=== PATIENT | male | born 1995 | race Caucasian/White ===

== ENCOUNTER → 2019-02-28 06:28 | Outpatient (CLI) | payer OTHER, SELFPAY ==
--- NOTE | 2019-02-28 06:32 | MRI_ITS ---
STUDY: MRI BRAIN WITH AND WITHOUT CONTRAST (ATTENTION INTERNAL AUDITORY CANALS - I.A.C.'s) REASON FOR EXAM: Male, 23 years old. Dizziness and headache. Blurred vision TECHNIQUE: Standardized multiplanar fat and water weighted pulse sequences were obtained. 13 IV Dotarem was administered for the contrast portion of the examination. COMPARISON: None. FINDINGS: Normal bilateral temporal bones. Normal bilateral internal auditory canals. There is no demonstrated intracanalicular or cisternal vestibular schwannoma (acoustic neuroma). There is no enhancement of the bilateral VIIth or VIIIth cranial nerves. Normal bilateral cochlea, vestibules and semicircular canals. Normal size of the ventricles and extra-axial spaces for the patient's age. Normal white matter tracts of the supratentorial brain. Normal bilateral basal ganglia. Normal thalami. Normal flow voids within the major intracranial circulation suggesting patency by spin echo criteria. Normal venous enhancement. There is no enhancing intra-axial or extra-axial abnormality. There is no extra-axial fluid accumulation. Normal sella turcica, pituitary gland, infundibular stalk, optic chiasm and hypothalamus. Normal tectal plate and pineal gland. Normal midbrain, riccardo and medulla. Normal cerebellum. Normal basal cisterns. No demonstrated orbital abnormality, within the constraints of a routine brain study. There is marked, asymmetric left nasal mucosal thickening and narrowing of the left nasal cavity. Normal calvarium and skull base. Normal visualized soft tissue structures. Normal visualized upper cervical spine. MRI/Brain W/WO Contrast IMPRESSION: Normal unenhanced and enhanced MRI of the bilateral internal auditory canals (I.A.C's). There is marked, asymmetric left nasal mucosal thickening and narrowing of the left nasal cavity. Electronically Signed: Katelynn Gill, at 9:57 EDT Tel , Service support ,
== END ==
PROVIDERS: Family Provider Family Medicine; PCP Family Medicine; Referring Provider Otolaryngology; Visit Provider Otolaryngology
DX: R51 Headache (principal); R42 Dizziness and giddiness; H53.9 Unspecified visual disturbance
CPT/HCPCS: 70553; A9575

== ENCOUNTER → 2019-03-09 05:55 | Outpatient (CLI) | payer OTHER, SELFPAY ==
[2019-03-09 08:14] LABS: Vitamin B12 365 pg/mL (211-911)
[2019-03-12 12:48] LABS: Vitamin B1, Thiamine 160.1 nmol/L (66.5-200.0)
== END ==
PROVIDERS: Family Provider Family Medicine; PCP Family Medicine; Referring Provider Ophthalmology; Visit Provider Ophthalmology
DX: H49.11 Fourth [trochlear] nerve palsy, right eye (principal); H55.00 Unspecified nystagmus
CPT/HCPCS: 36415; 82607; 82746; 84425

== ENCOUNTER → 2019-04-16 | Outpatient (CLI) | payer OTHER, SELFPAY ==
[2019-04-16 17:38] LABS: Erythrocyte Sedimentation Rate 2 mm/hr (0-15)
[2019-04-16 17:48] LABS: Homocysteine 7.9 umol/L (3.2-10.7)
[2019-04-16 18:01] LABS: CRP < 2.90 mg/L (0.0-3.0)
[2019-04-18 13:12] LABS: ANTINUCLEAR ANTIBODIES DIRECT Negative (Negative)
== END | disposition home or self-care (01) ==
LOC: MTLAB 16:21
PROVIDERS: Family Provider Family Medicine; PCP Family Medicine; Referring Provider Registered Nurse; Visit Provider Registered Nurse
DX: R53.83 Other fatigue (principal); H53.9 Unspecified visual disturbance; R42 Dizziness and giddiness
CPT/HCPCS: 36415; 83090; 85652; 86038; 86140

== ENCOUNTER 2023-07-21 13:56 | Emergency (ER) | payer OTHER, SELFPAY ==
[2023-07-21 13:57] VITALS: BP 146/81; PULSE 96; RESP 15; TEMP 36; O2SAT 99; BMI 33.5
--- NOTE | 2023-07-21 14:07 | EKG12_ITS ---
Test Reason : CP Blood Pressure : / mmHG Vent. Rate : 094 BPM Atrial Rate : 094 BPM P-R Int : 138 ms QRS Dur : 074 ms QT Int : 312 ms P-R-T Axes : 029 015 032 degrees QTc Int : 390 ms Normal sinus rhythm Normal ECG Confirmed by DEBI WILKINS, KORIN ([id number]), editor producer SHERRY PAIGE ([id number]) on 07/22/2023 12:15:22 PM Referred By: BIJAN/KAEL/TL Confirmed By:KORIN CARRERA MD
--- NOTE | 2023-07-21 14:07 | RAD_ITS ---
STUDY: X-RAY CHEST REASON FOR EXAM: Male, 27 years old. Chest pain TECHNIQUE: Single AP portable view of the chest. COMPARISON: None. FINDINGS: EKG electrodes are seen. The lungs are clear and expanded. There is no demonstrated pleural abnormality. Normal size heart. Normal mediastinum and rahel. Normal visualized pulmonary arteries. Normal visualized aortic arch and descending thoracic aorta. Normal visualized thoracic spine. Normal visualized ribs, clavicles, and shoulders. There is no demonstrated abnormality of the visualized soft tissue structures of the upper abdomen. RAD/Chest 1 View (Portable) IMPRESSION: Normal x-ray examination of the chest. Electronically Signed: Pato Loyola MD at 15:10 EDT ,
--- NOTE | 2023-07-21 14:15 | NURSING ---
NO OLD EKGS
--- NOTE | 2023-07-21 14:22 | EDS_ITS ---
HPI History of Present Illness Chief Complaint: Chest Pain Detail of Chief Complaint: Right-sided chest pain Informant: patient and spouse/S.O. 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 The pain is worse with breathing. He denies history of PE or DVT. He has no risk factors for VTE. There is no family history of cardiac disease. This pain was present prior to eating lunch. He had chicken nuggets for lunch. The pain was not made worse with eating chicken nuggets. Patient denies cough or shortness of breath. Patient denies nausea, vomiting or diarrhea. Patient denies diaphoresis. Patient denies change in pain with change in position or movement of arms. Patient denies black or maroon-colored stool. Patient does have history of reflux. He states his pain is not like the pain he experiences with reflux. There is family history of cholelithiasis. Prior Similar Symptoms: No Recent Illness/Hospitalization: No CVD Risk Factors: Negative for Hypertension, Diabetes, Hypercholesterolemia, Family History 1' </=55 or Smoking PE Risk Factors: Negative for Recent Travel/Surgery, Recent Immobilization, Prior DVT or PE, Cancer or OCP + Smoking + >/=35 TAD Risk Factors: Negative for Marfan's Syndrome, Hypertension or Family History PFSH PFSH Medical History Benign neoplasm of brain Claustrophobia Mitral valve insufficiency Allergy/AdvReac Type Severity Reaction Status Date / Time pollen extracts Allergy Mild HEAD Verified 06/09/21 13:21 CONGESTION Surgical History Hx of appendectomy Hx of tonsillectomy Social History Smoking Status: Never smoker Smokeless tobacco user: chewing tobacco alcohol intake: never ROS ROS ED Constitutional Constitutional ED: Denies chills, fever(s), subjective, sweats or weight loss Eyes Eyes: Reports none ENT ENT ED: Denies ear pain or rhinorrhea Cardiovascular Cardiovascular: Reports as per HPI; Denies orthopnea or paroxysmal nocturnal dyspnea Respiratory/Chest Respiratory/Chest: Denies cough, dyspnea, dyspnea on exertion, orthopnea or paroxysmal nocturnal dyspnea Gastrointestinal Gastrointestinal: Denies abdominal pain, nausea or vomiting Genitourinary Genitourinary ED: Denies dysuria or hematuria Musculoskeletal Musculoskeletal: Denies arthralgias, back pain or myalgias Integumentary Denies rash Endocrine Endocrinology: Denies cold intolerance or heat intolerance EXAM Physical Exam Const Vital Signs: 07/21/23 13:57 07/21/23 14:43 07/21/23 15:42 Temperature 96.8 F L Temperature Source Temporal Pulse Rate 96 89 Respiratory Rate 15 16 Blood Pressure 146/81 H 122/82 H Blood Pressure Mean 102 95 Pulse Ox 99 99 Oxygen Delivery Method Room Air Room Air Room Air Positive well nourished and well developed General Appearance ED: well developed and NAD; Negative for pallor HEENT Reports TM's clear and moist mucous membranes HEENT Narrative: Patient has a Thayer type III fracture of tooth #9. Oral exam is otherwise unr emarkable. normocephalic and atraumatic Tympanic Membrane ED: Yes TM's clear Eyes PERRL and EOMs intact bilaterally General Eye ED: Negative for pale conjunctiva or scleral icterus Neck no lymphadenopathy, supple and no JVD Resp normal respiratory effort and clear to auscultation bilaterally Cardio regular rate, regular rhythm, S1 normal heart sound, S2 normal heart sound and no murmurs Peripheral Pulses: pulses 2+ throughout GI normal to inspection, nondistended, normoactive bowel sounds, soft to palpation, non-distended, hepatosplenomegaly and no masses; Negative for non-tender GI Narrative: To deep palpation there is tenderness in the right upper quadrant. There is no hepatosplenomegaly. Negative clinic for sign. Back/Spine no CVA tenderness Extremity normal to inspection General Extremety ED: Negative for edema or pulses abnormal General Extremity: Negative for edema or pulses abnormal Neuro oriented x3, CN's II-XII intact bilaterally, no sensory deficits noted and gait normal Sensorium / Orientation: awake and alert; Negative for oriented to person Psych mental status grossly normal Skin no rashes or lesions noted and no wounds General Skin Exam: Negative for jaundice or pallor MDM MDM MDM Narrative Medical decision making narrative: Presents with right-sided chest pain. This may represent pleurisy, pneumonia, patient is PERC negative and reason D-dimer was not obtained. There is may represent GI pain from his reflux with a different quality and character. Chest pain order set was initiated per nurse protocol. Lab Data Attestation: I reviewed the patient's lab results. Lab results narrative: CBC is. Basic metabolic panel is unremarkable. First troponin is less than 3. Labs: Laboratory Results - last 24 hr 07/21/23 14:40 WBC 9.8 RBC 5.10 Hgb 15.2 Hct 44.7 MCV 87.6 MCH 29.8 MCHC 34.0 RDW Std Deviation 38.5 RDW Coeff of Saud 12.1 Plt Count 260 MPV 9.0 Immature Gran % (Auto) 0.700 Neut % (Auto) 66.3 Lymph % (Auto) 21.2 [place]born % (Auto) 9.3 Eos % (Auto) 1.8 Baso % (Auto) 0.7 Absolute Neuts (auto) 6.5 Absolute Lymphs (auto) 2.07 Nucleated RBC % 0 Sodium 140 Potassium 3.8 Chloride 108 H Carbon Dioxide 27.0 Anion Gap 5 BUN 15 Creatinine 0.88 Estim Creat Clear Calc 105.58 Est GFR (MDRD) Af Amer 133 Est GFR (MDRD) Non-Af 110 BUN/Creatinine Ratio 17.0 Glucose 90 Calcium 9.0 Troponin I High Sens < 3 L Radiography Chest X-Ray - ED: 1 View and Read by ED Physician (Single view portable chest x- ray reveals no acute process. Study is limited due to the fact that inspiratory volume is suboptimal. Cardiac silhouette and size normal. Perihilar region normal. Lung parenchyma normal. Osseous structures are normal. This is independent reviewed interpreted by me ) Diagnostic Testing: Clinical Impression(s) from Imaging Studies Chest X-Ray 07/21/23 14:07 IMPRESSION: Normal x-ray examination of the chest. Electronically Signed: Pato Loyola MD at 15:10 EDT , EKG Initial EKG: Attestation: I personally reviewed and interpreted this EKG as follows: Interpretation: Sinus Rhythm (Rate is 94. EKG is normal. NE interval is 138 ms per cures duration 74 ms for QT duration 212 ms. [place] is normal.) Treatment and Re-Evaluation :: Patient was informed his work-up is unremarkable. He was informed the cause of his pain is unknown. He was told there is no evidence of cardiac or pulmonary disease. He was discharged home in stable condition Discharge Plan Triage Chief Complaint: Chest Pain ED Provider: Jacob James Dx/Rx/DC Orders Clinical Impression: Elevated blood pressure reading, Right-sided chest pain Instructions: ED Chest Pain, Noncardiac, ED Hypertension, To Be Confirmed Primary Care Provider: Javier Kwon Referrals: Javier Kwon MD [Primary Care Provider] - 3-5 Days if not improving Disposition Disposition: Home, Self Care
[2023-07-21 14:45] LABS: Absolute Lymphocyte Count 2.07 X10^3/uL (0.83-4.51); Absolute Neutrophil Count 6.5 X10^3/uL (2.0-7.7); Basophil# 0.07 X10^3/uL; Basophil% 0.7 % (0-1); Eosinophil# 0.18 X10^3/uL; Eosinophils% 1.8 % (0-5); Hematocrit 44.7 % (40-54); Hemoglobin 15.2 g/dL (13.0-16.5); Lymphocyte # 2.07 X10^3/ul (0.83-4.51); Lymphocyte % 21.2 % (19-41); Mean Corpuscular Hgb 29.8 pg (27.0-32.0); Mean Corpuscular Volume 87.6 fL (80-94); Monocyte# 0.91 X10^3/uL; Monocyte% 9.3 % (0-10); NRBC Flagged by Analyzer 0 % (0-5); Neutrophil # 6.46 X10^3/uL (2.7-7.7); Neutrophil % 66.3 % (47-70); Platelet Count 260 K/mm3 (150-450); RBC Distribution Width CV 12.1 % (11.6-14.6); RBC Distribution Width SD 38.5 fl (35.1-43.9); White Blood Count 9.8 K/mm3 (4.4-11.0)
[2023-07-21 15:03] LABS: Anion Gap 5 (5-15); BUN 15 mg/dL (7-18); Chloride 108 mmol/L (98-107); Creatinine, Serum 0.88 mg/dL (0.70-1.30); EST Glomerular Filtration Rate 110 mL/min (>60); Est Glom Filt Rate - Afr Amer 133 mL/min (>60); Estimated Creatinine Clearance 105.58 ml/min; Glucose 90 mg/dL (74-106); Potassium 3.8 mmol/L (3.5-5.1); Sodium Level 140 mmol/L (136-145); Troponin-I HS (w/2H Reflex) < 3 pg/mL (3.0-78.0)
[2023-07-21 15:42] VITALS: BP 122/82; PULSE 89; RESP 16; O2SAT 99
[2023-07-21 16:42] LABS: Reflex Troponin-HS? (from REC) Y
[2023-07-21 17:05] VITALS: BP 138/78; PULSE 91; RESP 19; O2SAT 96
[2023-07-21 17:14] LABS: Troponin-I HS < 3 pg/mL (3.0-78.0)
== END 2023-07-21 17:08 | disposition home or self-care (01) ==
PROVIDERS: Emergency Provider Emergency Medicine; PCP Family Medicine; Visit Provider Emergency Medicine
DX: R03.0 Elevated blood-pressure reading, without diagnosis of hypertension (principal); R07.9 Chest pain, unspecified
CPT/HCPCS: 71045; 80048; 84484; 85025; 93005; 99285; A4216

== ENCOUNTER → 2024-02-27 | Outpatient (CLI) | payer OTHER, SELFPAY | END | disposition home or self-care (01) | LOC: SL 20:22 | PROVIDERS: PCP Family Medicine; Visit Provider Family Medicine | DX: R06.81 Apnea, not elsewhere classified (principal) | CPT/HCPCS: 95810 ==

== ENCOUNTER → 2025-01-30 | Outpatient (CLI) | payer OTHER, SELFPAY | END | disposition home or self-care (01) | LOC: LAB 10:37 | PROVIDERS: PCP Family Medicine; Referring Provider Internal Medicine Cardiovascular Disease; Visit Provider Internal Medicine Cardiovascular Disease | DX: R00.2 Palpitations (principal) | CPT/HCPCS: 36415; 83735 ==

== ENCOUNTER → 2025-08-27 | Outpatient (CLI) | payer OTHER, SELFPAY ==
--- NOTE | 2025-08-27 06:55 | MRI_ITS ---
PROCEDURE: BRAIN W/WO CONTRAST 08/27/2025 REASON FOR EXAM: DEMYELINATING DISEASE TECHNIQUE: Procedure Code: [id number] Modality: MR Procedure: BRAIN W/WO CONTRAST Multiplanar and multisequence images were obtained. CONTRAST: Clariscan VOLUME: 17 mL COMPARISON: none FINDINGS: No intracerebral or extra-axial hematomas or enhancing masses. No hyperacute or acute infarctions could be depicted. Normal MRI appearance of the cerebral and cerebellar parenchymal signals. Linear area of low T1, high T2/FLAIR signal seen along the ponto-medullary junction. Normal MRI appearance of rest of the different anatomical parts of the brain stem. Normal appearance of the ventricular system. No shift of midline structures. Normal MRI appearance of the petrous temporal bones and cerebellopontine angles with no obvious masses. Normal MRI appearance of orbital structures, both globes, optic nerves, optic chiasm, optic tracts and optic radiations. Scanned paranasal sinuses show minimal sphenoid sinusitis. MRI/Brain W/WO Contrast IMPRESSION: Pont-medullary junction area of altered signal as detailed. Advise clinical an d prior studies correlation. No acute infarcts, intracerebral or extra-axial hematomas or enhancing masses. Reading [facility]
[2025-08-27 09:23] LABS: CRP 5.19 mg/L (0.0-3.0); Vitamin B12 728 pg/mL (180-914)
[2025-08-28 14:09] LABS: ANTINUCLEAR ANTIBODIES DIRECT Negative (Negative)
[2025-08-29 15:07] LABS: Albumin 4.0 g/dL (2.9-4.4); Gamma Globulin 1.2 g/dL (0.4-1.8); Immunoglobulin A 127 mg/dL (90-386); Immunoglobulin G 1092 mg/dL (603-1613); Immunoglobulin M 73 mg/dL (20-172); PROEL- TOTAL PROTEIN 7.4 g/dL (6.0-8.5)
== END | disposition home or self-care (01) ==
PROVIDERS: PCP Family Medicine
DX: G37.9 Demyelinating disease of central nervous system, unspecified (principal); R51.9 Headache, unspecified
CPT/HCPCS: 36415; 70553; 82607; 82784; 84165; 85652; 86038; 86140; 86225; 86334; A9575

== ENCOUNTER → 2025-10-11 | Outpatient (CLI) | payer OTHER, SELFPAY ==
--- OUTSIDE RECORDS SUMMARY | 2025-10-11 13:57 | XMS RPT_ITS | CCD ---
Author Organization [facility] Care Team Providers Care [employer]ian [employer] Officer Name Role Phone Javier Gu MD Unavailable Javier Gu MD Unavailable [facility], . Unavailable Physical Therapy, Conner Pomkelly Unavailable Inderjit GARN, Brigid Unavailable Vipul GARN, Elvi Fiore Unavailable Unavailable Jakub WILKINS, Alexander Cadet Unavailable Missy PEÑA, Nazia Cadet Unavailable Unavaila Magdalena Sanchez CMA Unavailable Unavailable Mik GARN, Vilma Guillen Unavailable Unavailab gigi Richardson MD, Benjamin Cadet Unavailable Unavailable Unavailable [facility], . Unavailable [phone] Unavailable Unavailable Chandler Roberts PA-C Unavailable Chad CLEARY, Jemima Unavailable Unavailabl e CHANDLER ROBERTS Admitting Unavailable CHANDLER ROBERTS Primary Care Unavailable CHANDLER ROBERTS Attending Unavailable JAVIER GU Consulting Unavailable PROVIDER, UNKNOWN Consulting Unavailable PROVIDER, UNKNOWN Consulting Unavailable PROVIDER, UNKNOWN Consulting Unavailable JAVIER GU Admitting Unavailable JAVIER GU Primary Care Unavailable JAVIER GU Consulting Unavailable JAVIER GU Attending Unavailable PROVIDER, UNKNOWN Consulting Unavailable PROVIDER, UNKNOWN Consulting Unavailable PROVIDER, UNKNOWN Consulting Unavailable [facility] Unavailable [phone] BESSIEMILENI Attending Unavailable Doyle WILKINS, Dr. Herrera Primary Care Provider Dr. Javier Gu MD Referring Provider Jaymie WILKINS, Dr. Dee Attending Provider Jaymie WILKINS, Dr. Dee Referring Provider Donald MADIHAChasity Unavailable Unavailable Doyle WILKINS, Javier August Primary Care Provider Doyle WILKINS, Dr. Herrera Primary Care Provider Doyle WILKINS, Dr. Herrera Referring Provider Dagoberto Del Rio Attending Provider JAVIER GU Primary Care Unavailable JAYMIELEILA SINGH Referring Unavailable Doyle WILKINS, Dr. Herrera Primary Care Physician Dagoberto Del Rio Attending Physician Rosario WILKINS, Dr. Jay Attending Physician Jaymie, Leila Referring Unavailable Javier Gu Primary Care Unavailable Jaymie, Leila Attending Unavailable Pierre Ponce Attending Unavailable Javier Gu Referring Unavailable Javier Gu Primary Care Unavailable Jaymie, Leila Attending Unavailable Javier Gu Primary Care Unavailable Javier Gu Referring Unavailable Jaymie, Leila Referring Unavailable Javier Gu Primary Care Unavailable Jaymie, Leila Attending Unavailable Mckenna Butler Attending Unavailable Mckenna Butler Referring Unavailable Javier Gu Primary Care Unavailable Jaymie, Leila Referring Unavailable Jaiver Gu Primary Care Unavailable Jaymie, Leila Attending Unavailable Dagoberto Del Rio Attending Unavailable Javier Gu Referring Unavailable Javier Gu Primary Care Unavailable Allergies Allergy Classification Reported Allergen(s) Allergy Type Date of Onset Reaction(s) Facility (5 sources) Pollen Allergy to substance 1 [facility] (20 sources) Cephalexin Drug Allergy [facility], [facility].; [facility], [facility]. (3 sources) Cephalosporins (Antibiotic) Allergy to substance 5 [facility] (1 source) Cephalosporins (Antibiotic) Drug allergy (disorder) 5 [facility] (1 source) Pollen Drug allergy (disorder) 5 [facility] Medications Current Medications Medication Drug Class(es) Dates Sig (Normalized) Sig (Original) docosahexanoic acid/epa (FISH OIL ORAL) (2 sources) docosahexanoic acid/epa (FISH OIL ORAL) Take by mouth once daily. Active hydrOXYzine hydrochloride 25 mg oral tablet (2 sources) Antihistamine Start: 03-11-2025 hydrOXYzine HCL 25 mg tablet ; 1 (one) tablet q 6hrs prn anxiety for 0 days Quantity: 40 {Tablet} Refills: 0 Ordered: 11-Mar-2025 MD Javier Gu Start: 11-Mar-2025 LORazepam 1 mg oral tablet (4 sources) Benzodiazepine Start: 08-13-2025 Lorazepam 1 mg tablet Active 1 mg PO ONCE 1 0 August 13, 2025 12:00am Take 30 min prior to scheduled MRI Complies with drug therapy Start: 02-11-2025 End: 03-11-2025 LORazepam 1 mg tablet ; 1 (o ne) tablet take 30-60 minutes prior to procedure for 0 days Quantity: 1 {Tablet} Refills: 0 Ordered: 11-Mar-2025 MADIHA Bennett Start: 11-Feb-2025 End: 11-Mar-2025 Status: Inactive Comments: acute tx, no oarrs Comment on above: acute tx, no oarrs memantine hydrochloride 10 mg oral tablet (2 sources) T-itabar-L-aspartat e Receptor Antagonist Start: 9 take 1 tablet by mouth twice daily memantine (NAMENDA) 10 mg tablet Indications: Nystagmus , Oscillopsia Take 1 tablet by mouth twice daily. 60 tablet 1 03/30/2019 Active predniSONE 50 mg oral tablet (2 sources) Start: 9 predniSONE (DELTASONE) 50 mg tab Indications: Brainstem lesion Take 9 tab with breakfast, 8 tab with lunch, and 8 tab with dinner. Total 25 tabs (1250 mg) daily. 125 tablet 04/04/2019 Active Completed/Discontinued Medications Medication Drug Class(es) Dates Sig (Normalized) Sig (Original) cephalexin 500 mg oral capsule (20 sources) Cephalosporin Antibacterial Start: 01-29-2013 End: 01-30-2013 take 1 capsule by mouth three times daily CEPHALEXIN, 500MG (Oral Capsule) ; 1 Capsule three times daily for 10 days Quantity: 30 {Capsule} Refills: 0 Ordered: 30-Jan-2013 MD Javier Gu Start: 29-Jan-2013 End: 30-Jan-2013 Status: Inactive meclizine hydrochloride 25 mg oral tablet (20 sources) Antiemetic Start: 02-14-2019 End: 05-31-2022 take 0.5-1 tablets by mouth every eight hours as needed for dizziness Meclizine HCl 25 MG Oral Tablet ; 1/2 - 1 Tablet Tablet q8h, prn dizziness for 0 days Quantity: 30 {Tablet} Refills: 0 Ordered: 31-May-2022 DISHA Quintero Start: 14-Feb-2019 End: 31-May-2022 Status: Discontinued omeprazole 20 mg delayed release oral capsule (20 sources) Proton Pump Inhibitor Start: 04-04-2019 End: 01-30-2025 Omeprazole 20 mg capsule,delayed release(DR/EC) Discontinued mg PO January 24, 2025 12:00am January 30, 2025 9:38am sulfamethoxazole 800 mg / trimethoprim 160 mg oral tablet (20 sources) Dihydrofolate Reductase Inhibitor Antibacterial, Sulfonamide Antimicrobial Start: 01-06-2018 End: 01-16-2018 take 1 tablet by mouth twice daily Bactrim DS 800-160 MG Oral Tablet ; 1 Tablet two times daily for 10 days Quantity: 20 {Tablet} Refills: 0 Ordered: 06-Jan-2018 MD Javier Gu Start: 06-Jan-2018 End: 16-Jan-2018 Status: Inactive Problems Active Problems Problem Classification Problem Date Documented Date Episodic/Chronic Adjustment disorders (4 sources) Stress; Translations: [Reaction to severe stress, unspecified] 03-11-2025 Chronic Anxiety disorders (6 sources) Claustrophobia; Translations: [Claustrophobia] 02-11-2025 Chronic Blindness and vision defects (2 sources) Eye / vision finding; Translations: [Unspecified visual disturbance] 03-11-2025 Episodic Cardiac dysrhythmias (20 sources) Other premature beats; Translations: [Multiple premature ventricular complexes] Onset: 03-18-2025 05-12-2013 Chronic Chronic obstructive pulmonary disease and bronchiectasis (20 sources) Bronchitis; Translations: [Bronchitis, not specified as acute or chronic] 01-06-2018 Episodic Conditions associated with dizziness or vertigo (20 sources) Vertigo; Translations: [Dizziness and giddiness] 02-20-2019 Episodic Esophageal disorders (20 sources) Gastroesophageal reflux disease; Translations: [Gastro-esophageal reflux disease without esophagitis] 01-30-2024 Chronic Headache; including migraine (2 sources) Frequent headache; Translations: [Frequent headaches] 08-13-2025 Episodic Comment on above: Patient has unusual presentation. 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 Possible related abnormality such as multiple sclerosis or anti-MOG 3 antibody has been raised. Patient was treated with steroid. This occurred in 2018. 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 I was unable to find exactly how that was documented. That could be an alternative explanation for the MRI abnormality although it seems relatively unlikely. Headache; including migraine (1 source) Headache; including migraine; Translations: [Headache, unspecified] Onset: 08-13-2025 Heart valve disorders (20 sources) Mitral valve regurgitation; Translations: [Nonrheumatic mitral (valve) insufficiency] Onset: 03-18-2025 01-30-2024 Chronic Comment on above: mild Nonspecific chest pain (5 sources) Right sided chest pain; Translations: [Chest pain, unspecified] 07-21-2023 Episodic Other circulatory disease (5 sources) Elevated blood pressure; Translations: [Elevated blood-pressure reading, without diagnosis of hypertension] 07-21-2023 Episodic Other eye disorders (4 sources) Nystagmus present; Translations: [Unspecified nystagmus] 03-11-2025 Chronic Other injuries and conditions due to external causes (20 sources) Elbow, forearm, and wrist injury 07-17-2013 Episodic Other lower respiratory disease (20 sources) Apnea; Translations: [Apnea, not elsewhere classified] 01-30-2024 Episodic Other nervous system disorders (2 sources) Demyelinating disease of central nervous system; Translations: [Demyelinating disease of central nervous system, unspecified] 08-13-2025 Chronic Comment on above: Patient had evaluati on suggestive of possible demyelinating disease of brainstem. Alternative diagnoses have been offered. Thus far no if no definitive statement. Other nervous system disorders (1 source) Demyelinating disease of central nervous system, unspecified; Translations: [Demyelinating disease of central nervous system, unspecified] Onset: 09-09-2025 Chronic Other nervous system disorders (2 sources) Magnetic resonance imaging of brain abnormal; Translations: [White matter disease, unspecified] 03-25-2019 Episodic Other non-traumatic joint disorders (5 sources) Shoulder pain; Translations: [Pain in unspecified shoulder] 06-09-2021 Episodic Other non-traumatic joint disorders (20 sources) Ankle pain; Translations: [Pain in left ankle and joints of left foot] 04-05-2012 Episodic Other nutritional; endocrine; and metabolic disorders (20 sources) Overweight in adulthood with body mass index of 25 or more but less than 30; Translations: [Body mass index (BMI) 25.0-25.9, adult] 02-19-2019 Episodic Other nutritional; endocrine; and metabolic disorders (10 sources) Body mass index 25-29 - overweight; Translations: [Body mass index (BMI) 25.0-25.9, adult] 02-19-2019 Episodic Other screening for suspected conditions (not mental disorders or infectious disease) (20 sources) Patient encounter status; Translations: [Encounter for screening for lipoid disorders] 01-30-2024 Episodic Residual codes; unclassified (20 sources) Tobacco user; Translations: [Tobacco use] 01-30-2024 Episodic Comment on above: chews Skin and subcutaneous tissue infections (20 sources) Cellulitis; Translations: [Cellulitis, unspecified] 01-29-2013 Episodic Spondylosis; intervertebral disc disorders; other back problems (5 sources) Backache; Translations: [Dorsalgia, unspecified] 06-09-2021 Episodic Unclassified (2 sources) Finding of respiration 06-12-2025 Past or Other Problems Problem Classification Problem Date Documented Date Episodic/Chronic Cardiac dysrhythmias (20 sources) Palpitations; Translations: [Palpitations] Onset: 03-18-2025 12-13-2024 Episodic Unclassified (20 sources) Daytime sleepiness - Complains of excessive daytime sleepiness for several months. Has had several episodes of waking gasping for air. Also snores. has witnessed apnea 01-30-2024 Unclassified (20 sources) Well Adult, male - The patient feels well with no complaints, has good energy level and is sleeping well. The patient has a balanced diet and takes no supplemental vitamins & iron. The patient exercises 3 - 4 times per week (walks). The patient sleeps 7 hours per night. Note for "Well Adult, male": reviewed by [facility] 07-12-2023 Unclassified (20 sources) Well adult male - The patient feels well with minor complaints (acid reflux), has good energy level and is sleeping well. The patient has a balanced diet and takes supplemental vitamins (Vitamin C, Vitamin D). The patient exercises weekly. The patient sleeps 5 (5-6) hours per night. Note for "Well adult male": reviewed by [facility] 05-31-2022 Unclassified (20 sources) Vertigo - The onset of the vertigo has been acute and has been occurring in a persistent pattern for 15 days. The course has been recurrent. The vertigo is characterized as lightheadedness and spinning of the environment. The symptoms include headache (occasional), but do not include tinnitus, nausea, vomiting, numbness or facial paralysis. There has been no associated fever or cold symptoms. The symptoms are exacerbated by position change and standing suddenly. The symptoms are relieved by lying still and rest, but are not relieved by medication. Note for "Vertigo": patient was into see [facility] 02/14/19 and was given meclizine-pt states this is not relieving his symptoms and this weekend he had blurred vision along with the vertigo reviewed by [facility] 02-19-2019 Unclassified (20 sources) Vertigo - The onset of the vertigo has been gradual and has been occurring in a persistent pattern for 10 days. The course has been constant. The vertigo is characterized as lightheadedness and spinning of the environment. The symptoms do not include nausea. 02-14-2019 Unclassified (20 sources) Cough - The onset of the cough has been gradual and has been occurring in an intermittent pattern for 2 weeks. The course has been recurrent. The cough is characterized as dry. There is no dyspnea (and PO 99%.), fever, headache, nasal congestion, runny nose or sore throat. Note for "Cough": Not aggravated by anything. Pt did have cold symptoms prior to cough and now all those symptoms are gone except the cough. Not using any OTC's. reviewed by [facility] 01-06-2018 Unclassified (20 sources) Wrist Pain - The pain is in the left wrist and is described as being located in the ulnar aspect of wrist. The onset of the wrist pain has been sudden following an incident not at work (Fell and landed on the wrist.) and has been occurring in a persistent pattern for 2 days. The course has been gradually improving. The wrist pain is characterized as a moderate. Note for "Wrist pain": reviewed by [facility] 07-17-2013 Unclassified (20 sources) Follow up consultation - The patient is here to follow-up after hospitalization ([facility] [facility] Dx: Chest pain w/ PVC's) on : (05/07/13). Current symptoms include chest pain and other (dizziness). Note for Consultation follow-up": Patient and mother were told that patient's heart is in good shape and not the cause of his chest pain. Mother would like to know the cause of the chest pain patient has been having. 05-12-2013 Unclassified (20 sources) Infected Hand - Pt here today because he caught his hand in a valve spring compressor last Tuesday. Area that got caught is between left thumb and index finger. Area is red and swollen and is very painful. Compressor took off some skin. Has been doing epson salt bathes as well as using some burn salve. Just started using some antibiotic ointment to area today. Last tetanus mom thinks was at Kindergarten. reviewed by [facility] 01-29-2013 Unclassified (20 sources) Ankle pain - The pain has been occurring in an intermittent pattern for 1 year. The course has been recurrent. The pain is characterized as a mild to moderate dull aching. The pain is in the left ankle. The pain is aggravated by physical activity. Note for "Ankle pain": Twisted ankle in gym class about 1 year ago. Has had occasional pain since injury. Pain has continued to bother him for the past year. 04-04-2012 Unclassified (16 sources) Well Adult, male - The patient feels well with no complaints, has good energy level and is sleeping well. The patient has a balanced diet and takes no supplemental vitamins & iron. The patient does not exercise. The patient sleeps 6 hours per night. Note for "Well Adult, male": reviewed by [facility] 07-31-2024 Unclassified (1 source) Palpitations - The symptoms first began 3 month(s) ago. The onset has been spontaneous. Each episode lasts approximately 2 hours. The symptoms occur 4 time(s) per week . The symptoms are intermittent. The palpitations are described as fluttering and irregular. Associated features include chest pain, shortness of breath and tightness, but do not include angina, arm pain, diaphoresis, dizziness, falls, faintness, heaviness, jaw pain, nausea, syncope, tired/fatigue or weakness. There are no precipitating factors. There are no aggravating factors. Relieving factors include rest (sometimes). Note for "Palpitations": Patient states his symptoms come and go, does help some if he lies down.Patient can not think of any rhyme or reason to his episodes.Does use nasal spray very often. 12-13-2024 Unclassified (12 sources) Palpitations - The symptoms first began 3 month(s) ago. The onset has been spontaneous. Each episode lasts approximately 2 hours. The symptoms occur 4 time(s) per week . The symptoms are intermittent. The palpitations are described as fluttering and irregular. Associated features include chest pain, shortness of breath and tightness, but do not include angina, arm pain, diaphoresis, dizziness, falls, faintness, heaviness, jaw pain, nausea, syncope, tired/fatigue or weakness. There are no precipitating factors. There are no aggravating factors. Relieving factors include rest (sometimes). Note for "Palpitations": Patient states his symptoms come and go, does help some if he lies down. Patient does not recall any exacerbating or alleviating factors that might affect symptom burden. Patient states the only medication he utilizes on a regular basis is OTC oxymetazoline nasal spray. 12-13-2024 Unclassified (2 sources) Anxiety - The onset of the anxiety has been gradual and has been occurring in a persistent pattern for 10 days. The course has been increasing. The anxiety is characterized as nervousness and extreme fear. Precipitating factors include specific circumstances (Since he has had a lot of involuntary movements with his eyes and is now stressing out that he is going to get vertigo again). There has been no associated feeling of sadness. Note for "Anxiety": states in the past he had involuntary movements with his eyes and then would get vertigo really bad after words. She also said years ago they found a spot on his brain and they never were told exactly what it wasPatient is not feeling vertigo at this time but does have tinnitus. He does also have headaches reviewed by [facility] 03-11-2025 Results Test Name Value Interpretation Reference Range Facility MAGGIE w/ Reflex Mult Confirmon 09-02-2025 ANTI-DNA (DS)AB TNP Normal [facility] Comment on above: Performed By: #### L 503.0106, L101.9900, L3100.3425, L3100.5450, L501.6710, L3410.9992 #### [facility] [address] [place], [address] ANTI-SS-A TNP Normal [facility] Comment on above: Performed By: #### L 503.0106, L101.9900, L3100.3425, L3100.5450, L501.6710, L3410.9992 #### [facility] [address] [place], [address] ANTI-SS-B TNP Normal [facility] Comment on above: Performed By: #### L 503.0106, L101.9900, L3100.3425, L3100.5450, L501.6710, L3410.9992 #### [facility] [address] [place], [address] DIGNA + Protein Elect, Serumon 08-29-2025 Albumin [Mass/Vol] 4.0 g/dL Normal 2.9-4.4 [facility] Comment on above: Order Comment: Y serum Performed By: #### L 503.0106, L101.9900, L3100.3425, L3100.5450, L501.6710, L3410.9992 #### [facility] [address] [place], [address] Albumin/Globulin [Mass ratio] 1.2 {ratio} Normal 0.7-1.7 [facility] Comment on above: Order Comment: Y serum Performed By: #### L 503.0106, L101.9900, L3100.3425, L3100.5450, L501.6710, L3410.9992 #### [facility] [address] [place], [address] QUIYR-7-WFKG 0.2 g/dL Normal 0.0-0.4 [facility] Comment on above: Order Comment: Y serum Performed By: #### L 503.0106, L101.9900, L3100.3425, L3100.5450, L501.6710, L3410.9992 #### [facility] [address] [place], [address] BJHIO-3-NQPP 0.8 g/dL Normal 0.4-1.0 [facility] Comment on above: Order Comment: Y serum Performed By: #### L 503.0106, L101.9900, L3100.3425, L3100.5450, L501.6710, L3410.9992 #### [facility] [address] [place], [address] BETA GLOBULIN 1.2 g/dL Normal 0.7-1.3 [facility] Comment on above: Order Comment: Y serum Performed By: #### L 503.0106, L101.9900, L3100.3425, L3100.5450, L501.6710, L3410.9992 #### [facility] [address] [place], [address] GAMMA GLOBULIN 1.2 g/dL Normal 0.4-1.8 [facility] Comment on above: Order Comment: Y serum Performed By: #### L 503.0106, L101.9900, L3100.3425, L3100.5450, L501.6710, L3410.9992 #### [facility] [address] [place], [address] Globulin (S) [Mass/Vol] 3.4 g/dL Normal 2.2-3.9 [facility] Comment on above: Order Comment: Y serum Performed By: #### L 503.0106, L101.9900, L3100.3425, L3100.5450, L501.6710, L3410.9992 #### [facility] [address] [place], [address] DIGNA RESULT,S Comment Normal . [facility] Comment on above: Order Comment: Y serum Result Comment: No m onoclonality detected. Performed By: #### L 503.0106, L101.9900, L3100.3425, L3100.5450, L501.6710, L3410.9992 #### [facility] [address] [place], [address] IMMUNOGLOB A QN 127 mg/dL Normal 90-386 [facility] Comment on above: Order Comment: Y serum Performed By: #### L 503.0106, L101.9900, L3100.3425, L3100.5450, L501.6710, L3410.9992 #### [facility] [address] [place], [address] IMMUNOGLOB G QN 1092 mg/dL Normal 603-1613 [facility] Comment on above: Order Comment: Y serum Performed By: #### L 503.0106, L101.9900, L3100.3425, L3100.5450, L501.6710, L3410.9992 #### [facility] [address] [place], [address] IMMUNOGLOB M QN 73 mg/dL Normal 20-172 [facility] Comment on above: Order Comment: Y serum Performed By: #### L 503.0106, L101.9900, L3100.3425, L3100.5450, L501.6710, L3410.9992 #### [facility] [address] [place], [address] M-Abrahan Not Observed Normal Not Observed [facility] Comment on above: Order Comment: Y serum Performed By: #### L 503.0106, L101.9900, L3100.3425, L3100.5450, L501.6710, L3410.9992 #### [facility] [address] [place], [address] NOTE: Comment Normal . [facility] Comment on above: Order Comment: Y serum Result Comment: Prot ein electrophoresis scan will follow via computer, mail, or global regulatory lead delivery. Performed at: [address] [id number] Building Services Technician: Luis Suazo PhD, Phone: [phone] Performed By: #### L 503.0106, L101.9900, L3100.3425, L3100.5450, L501.6710, L3410.9992 #### [facility] [address] [place], [place], [id number] Protein [Mass/Vol] 7.4 g/dL Normal 6.0-8.5 [facility] Comment on above: Order Comment: Y serum Performed By: #### L 503.0106, L101.9900, L3100.3425, L3100.5450, L501.6710, L3410.9992 #### [facility] [address] [place], [address] L3410.9992on 08-29-2025 [facility] COMMENT Normal . [facility] Comment on above: Order Comment: Comme nts: serum [id number] PACKAGE WINDER EVAL SERUM RF Result Comment: Test Ordered: [id number] PACKAGE WINDER Demyelinating Disease Test(s) 164721-ZIA6 Antibody, Cell-based IFA; 148251- MOG Antibody, Cell-based IFA was developed and its performance characteristics determined by [facility]. It has not been cleared or approved by the Food and Drug Administration. AQP4 Antibody, Cell-based IFA Negative BN Reference Range: Negative MOG Antibody, Cell-based IFA Negative BN Reference Range: Negative Performed at: - [address] [id number] Building Services Technician: Rosangela Gary MD, Phone: [phone] Performed at: [address] [id number] Building Services Technician: Luis Suazo PhD, Phone: [phone] Performed By: #### L 503.0106, L101.9900, L3100.3425, L3100.5450, L501.6710, L3410.9992 #### [facility] Laboratory [address] [place], [address] Brain W/WO Contraston 2024 Brain W/WO Contrast [facility] Imaging Services [address] [place] [address] Brain W/WO Contrast MR#: [id number] Acct: [id number] Name: ANATOLIY DUFFY Rep #: [id number] : 1995 M 29 From: Kristian rios MD PCP: Dr. Javier Gu MD Status: REG CLI Study: Brain W/WO Contrast Date of Exam: 08/27/25 Exam# [id number] Ordering Dr: Mckenna Butler PROCEDURE: BRAIN W/WO CONTRAST 08/27/2025 REASON FOR EXAM: DEMYELINATING DISEASE TECHNIQUE: Procedure Code: MRIBRWW Modality: MR Procedure: BRAIN W/WO CONTRAST Multiplanar and multisequence images were obtained. CONTRAST: Clariscan VOLUME: 17 mL COMPARISON: none FINDINGS: No intracerebral or extra-axial hematomas or enhancing masses. No hyperacute or acute infarctions could be depicted. Normal MRI appearance of the cerebral and cerebellar parenchymal signals. Linear area of low T1, high T2/FLAIR signal seen along the ponto-medullary junction. Normal MRI appearance of rest of the different anatomical parts of the brain stem. Normal appearance of the ventricular system. No shift of midline structures. Normal MRI appearance of the petrous temporal bones and cerebellopontine angles with no obvious masses. Normal MRI appearance of orbital structures, both globes, optic nerves, optic chiasm, optic tracts and optic radiations. Scanned paranasal sinuses show minimal sphenoid sinusitis. MRI/Brain W/WO Contrast IMPRESSION: Pont-medullary junction area of altered signal as detailed. Advise clinical and prior studies correlation. No acute infarcts, intracerebral or extra-axial hematomas or enhancing masses. Reading Location: [place] [address] CC: ROMERO Butler; Dr. Javier Gu MD Drop Hammer Operator Helper: Signed Normal [facility] CRPon 08-27-2025 C-REACTIVE PROT 5.19 mg/L High 0.0-3.0 [facility] Comment on above: Order Comment: PT TY Haro A CT WITH CONTRAST BEFORE GETTING BLOODWORK. STILL WANTED TO PROCEED WITH BLOODWORK.-SWRIGHT Performed By: #### L 503.0106, L101.9900, L3100.3425, L3100.5450, L501.6710, L3410.9992 #### [facility] [address] [place], [place], [address] Erythrocyte Sed Rateon 08-27 SED RATE 3 mm/hr Normal 0-20 [facility] Comment on above: Performed By: #### L 503.0106, L101.9900, L3100.3425, L3100.5450, L501.6710, L3410.9992 #### [facility] [address] [place], [place], [address] Vitamin B12on 08-27-2025 Cobalamin (Vitamin B12) [Mass/Vol] 728 pg/mL Normal 180-914 [facility] Comment on above: Order Comment: PT TY Haro A CT WITH CONTRAST BEFORE GETTING BLOODWORK. STILL WANTED TO PROCEED WITH BLOODWORK.-SWRIGHT Performed By: #### L 503.0106, L101.9900, L3100.3425, L3100.5450, L501.6710, L3410.9992 #### [facility] [address] [place], [place], [address] Neurology Visit Reporton Neurology Visit Report [facility] [address] [facility], [address] [place], [place] [address] OFFICE VISIT Date of Service: 08/13/25 MR#: [id number] Acct: [id number] Name: ANATOLIY DUFFY Rep #: [id number] : 1995 Provider: Dr. Pierre hurtado MD Age/Sex: 29/M Location: [facility]. Status: Signed HPI HPI Chief Complaint: Establish Care Details: The patient is a 29-year-old right-handed male who presents to [facility]. He was referred 03/12/[address] Javier Gu with 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 Per referral office note dated 03/11/[address] Gu, said years ago they found a spot on his brain and they never were told exactly what it was. He was previously treated by Dr. Quinn Hernandez with [facility] neurology around March of 2019 who noted: blurry vision likely due to nystagmus and his brainstem lesion. This patient is accompanied by his for evaluation. Patient has a brainstem abnormality which is currently being assessed. The brainstem abnormality has been demonstrated by MRI scanning. Patient states that in 2019 he had the onset of headache marked change in vision ataxia slurring of speech and generalized weakness. He presented to ED for evaluation. MRI of the brain demonstrated what was interpreted as a normal scan. I did review the images dated 02/28/2019 from [facility]. It was reported as normal however to my eye there were changes identified in the dorsal aspect of the midbrain at the level of the fourth ventricle extending to the subthalamic regions. It is a relatively subtle finding and easy to overlook. Patient subsequently went to [facility] where a demyelinating abnormality was seen in that location. No other areas of demyelination were noted. 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 Consideration at [facility] included anti-MOG 3 antibody was also included in the differential. I did review the MRIs from [facility] which included the cervical spine, thoracic spine and brain. The only lesion I could see where the ones commented on by the [facility] radiology group which involved demyelination in the dorsal aspect of the midbrain as described above. Patient tells me that a lumbar puncture had been performed. I cannot find a record of that. He states that he was given prednisone to take orally and he was discharged. His symptom complex apparently improved and no further action was noted. He did see a internal communications writer back doctor for a period of time and seemed to do well. Patient presents now because he has had a reemergence of headache and difficulty with vision. His difficulty with vision appears to be not loss of visual acuity but loss of his ability to fixate on a target is in reading. It seems that he has some nystagmus which is very subtle in primary position that prevents him from fixating on vision. This problem began about 6 months ago. 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 He does not note any particular difficulty with swallowing facial sensation use of arms or legs. He has no loss of function bowel or bladder. Patient reports that he has a sister with a similar problem. His sister is taking some B vitamins and is apparently improved. Whether or not this represents a familial disorder is not clear at this point. He has 4 brothers who are apparently in good health. ROS: General: No recent flulike illnesses. HEENT: Mild 3-4 headache whole head aching at times throbbing. Problem with visual fixation. Hearing swallowing intact. No epistaxis. Respiratory: No cough or hemoptysis. Cardiac: No chest pain or palpitations Abdomen: Does not vomit blood or passed blood in stool. No abdominal discomfort. : No hematuria or difficulty with urination. Not incontinent. Extremities: Perhaps has a slight change in balance but otherwise no notable issues. Skin: No rashes or eruptions. PDMP reviewed. Exam Const Other: BP 119/79 pulse 96 respiration 15 temperature 98.2 O2 sat 98%. BMI is 32.2%. General appearance well-developed well-nourished male. HEENT: Normocephalic. Conjunctiva clear. Respiratory: Clear to auscultation Cardiac: No murmurs. (Patient had been evaluated for arrhythmia in the past which resolved during his first episode in 2019) Abdomen: Obese nondistended Extremities: No obvious trauma Skin no obvious rashes on exposed areas. Neurologic examination: Mental status: Patient is awake alert oriented x 3. Memory and language functions are normal. Hearing swallowing phonation and tongue are normal. Patient does have uncertain shyness and presentation at this time. CN II-XII: Pupils equal round reactive light 4 mm. Visual gonzalez full to confrontation. Fundi not examined. Patient's visual symptoms are not readily evident. I cannot see nystagm (more content not included)... Normal [facility] MRI CARD MORPH [employer] WO/W IVC ONon 06-27-2025 MRI CARD MORPH [employer] WO/W IVCON * * *Final Report* * * DATE OF EXAM: Jun 27 2025 9:06AM [facility] 0703 - MRI CARD MORPH [employer] WO/W IVCON / PROCEDURE REASON: R00.2, I34.0, I49.3 * * * * Physician Interpretation * * * * Cardiac MRI Report: [facility] Date of service: 06/27/2025 7:39:51 AM Linked orders:[id number] CARD MORPH FUNC WO/W IVCON;[id number] CARDIAC VELOCITY FLOW MAP. Ordering physician: LEILA COON Technologist: MARY MENEZES Interpreting physician: Galina Baig MD PATIENT: Name: MR. ANATOLIY DUFFY Age: 29 years Gender: M MRI Scanner: Siemens Chery 1.5T 29 year old male with suspected cardiomyopathy. 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 This study is performed to quantify left/right ventricular size and function, valvular function, and to perform tissue characterization for the assessment of myocardial fibrosis/viability. MRI Techniques: * Turbo spin echo and gradient echo imaging for anatomic definition. * Dynamic cine imaging (SSFP and GRE) for cardiac chamber and wall-motion analysis, and valvular analysis. * Flow quantification sequences for hemodynamics in 2 locations: aortic root and mid-ascending aorta. * Delayed gadolinium enhancement analysis after injection of gadolinium-chelate. * T2STIR/ T2 Fat Saturated Imaging. * T1 mapping. * T2 mapping. * T2 * . Gadolinium Agent: 9 cc of Gadavist was administered. Baseline vital signs: 78 bpm Height: 162.60 cm BSA: 1.70 m? Weight: 64.00 kg BMI: 24.2 kg/m? FINDINGS: Extracardiac findings: The mediastinum is normal. No significant adenopathy is identified. Limited imaging of the lungs reveals no gross abnormalities. Cardiac structures: The cardiac chambers demonstrate normal atrioventricular and normal ventriculoarterial concordance. Systemic and pulmonary venous return is normal. Aorta: The thoracic aorta is normal in course, caliber and contour. Sinus: 2.6 cm Mid ascendin.4 cm Distal ascendin.5 cm Proximal descending isthmus: 2.2 cm Symmetric aortic root. Acute Aortic Pathology: no Sinotubular Junction: Preserved Pulmonary Arteries: Pulmonary Arteries: Normal Measurements: - Main pulmonary artery diameter: 2.3 cm - Right pulmonary artery diameter: 1.4 cm - Left pulmonary artery diameter: 1.6 cm Left Atrium: The left atrium is normal in size. LA volume: 51 ml (normal range: 31-112 ml) LA volume index: 30 ml/m? (normal range: 14-55 ml/m?) LA area (4ch): 22 cm? LA area (2ch): 17 cm? Right Atrium: The right atrium is normal in size. RA volume: 48 ml (normal range: 24-105 ml) RA volume index: 28 ml/m? (normal range: 17-70 ml/m?) RA area (4ch): 16 cm? Left Ventricle: The left ventricle is normal in size. Left ventricular systolic function is normal. value (normal range) indexed (normal range) EDV: 140 ml (83-207 ml) EDVi: 83 ml/m? (47-107 ml/m?) ESV: 64 ml (19-88 ml) ESVi: 37 ml/m? (11-47 ml/m?) SV: 77 ml (55-127 ml) SVi: 45 ml/m? (30-66 ml/m?) AUGUSTUS: 4.9 cm (4.2-6.2 cm) Jenna: 2.9 cm/m? (2.4-3.5 cm/m?) ESD: 3.8 cm (2.6-3.8 cm) ESDi: 2.3 cm/m? (1.5-2.2 cm/m?) EF: 55 % (51-76 %) CO: 6.0 l/min (3.9-8.3 l/min) CI: 3.5 l/min/m? (2.1-4.3 ml/min/m?) mass: 89 g (57-152 g) LVMi: 52 g/m? (36-75 g/m?) The AUGUSTUS measurement was taken from the short axis view and the ESD measurement was taken from the short axis view. There is no LV hypertrophy. LV segment wall thickness: basal anteroseptum: 0.8 cm basal inferolateral: 0.9 cm Wall Motion: There are no wall motion abnormalities. Delayed Enhancement: There is no delayed enhancement. Constellation of findings could be suggestive of No significant myocardial disease. Right Ventricle: The right ventricle is normal in size. Right ventricular systolic function is normal. value (normal range) indexed (normal range) EDV: 127 ml (87-244 ml) EDVi: 75 ml/m? (53-123 ml/m?) ESV: 51 ml (29-117 ml) ESVi: 30 ml/m? (17-59 ml/m?) SV: 76 ml (43-146 ml) SVi: 45 ml/m? (28-75 ml/m?) EF: 60 % (42-72 %) CO: 5.9 l/min (2.8-8.3 l/min) CI: 3.5 l/min/m? (1.5-4.5 l/min/m?) Fibro-fatty Infiltration: no Regional Wall Motion: Normal Aneurysm / Diverticulum Formation: no T1 / T2 / ECV T2 * : +---+ +----- + T1 pre (ms) +/- +---+ +----- + Mid 948.00 67.00 +---+ +----- + T2 mapping: Global: 47.55 +/- 8.79 ms T2 * weighted imaging: LV myocardium: 38 +/- 8 ms Aortic Valve: The aortic valve cusps are structurally normal. There is no aortic regurgitation. AV Flow Quantification: ST Junction Forward Volume: 69 ml Reverse Volume: 2 ml Net Forward Volume: 67 ml Regurgitant Fraction: 3 % Pulmonic Valve: The pulmonic valve was not seen or not interrogated. PV Flow Quantification: Pulmonic Flow Quantification: F (more content not included)... Normal [facility] MRI CARDIAC MORPH FUNC WO/W IVCONon 06-27-2025 IMPRESSION: - The left ventricle is normal in size (LV EDVi = 83 ml/m ). The left ventricular systolic function is normal (LV EF = 55 %). There is no significant late gadolinium enhancement to suggest scar/fibrosis. Wall thickness is normal. There is no significant myocardial disease noted. - The right ventricle is normal in size (RV EDVi = 75 ml/m ). The right ventricular systolic function is normal (RV EF = 60 %). * * * Final * * * RP Drop Hammer Operator Helper: RAMANA Funezrigeorges Date/Time: Jun 27 2025 7:39A Dictated by : GALINA BAIG MD This examination was interpreted and the report reviewed and electronically signed by: GALINA BAIG MD on Jun 27 2025 3:07PM EST [facility] * * *Final Report* * * DATE OF EXAM: Jun 27 2025 9:06AM [facility] 0703 - MRI CARD MORPH FUNC WO/W IVCON / PROCEDURE REASON: R00.2, I34.0, I49.3 * * * * Physician Interpretation * * * * Cardiac MRI Report: [facility] Date of service: 06/27/2025 7:39:51 AM Linked orders:[id number] CARD MORPH FUNC WO/W IVCON;[id number] CARDIAC VELOCITY FLOW MAP. Ordering physician: LEILA COON Technologist: MARY MENEZES Interpreting physician: Galina Baig MD PATIENT: Name: MR. ANATLOIY DUFFY Age: 29 years Gender: M MRI Scanner: Siemens Chery 1.5T 29 year old male with suspected cardiomyopathy. 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 This study is performed to quantify left/right ventricular size and function, valvular function, and to perform tissue characterization for the assessment of myocardial fibrosis/viability. MRI Techniques: * Turbo spin echo and gradient echo imaging for anatomic definition. * Dynamic cine imaging (SSFP and GRE) for cardiac chamber and wall-motion analysis, and valvular analysis. * Flow quantification sequences for hemodynamics in 2 locations: aortic root and mid-ascending aorta. * Delayed gadolinium enhancement analysis after injection of gadolinium-chelate. * T2STIR/ T2 Fat Saturated Imaging. * T1 mapping. * T2 mapping. * T2 * . Gadolinium Agent: 9 cc of Gadavist was administered. Baseline vital signs: 78 bpm Height: 162.60 cm BSA: 1.70 m Weight: 64.00 kg BMI: 24.2 kg/m FINDINGS: Extracardiac findings: The mediastinum is normal. No significant adenopathy is identified. Limited imaging of the lungs reveals no gross abnormalities. Cardiac structures: The cardiac chambers demonstrate normal atrioventricular and normal ventriculoarterial concordance. Systemic and pulmonary venous return is normal. Aorta: The thoracic aorta is normal in course, caliber and contour. Sinus: 2.6 cm Mid ascendin.4 cm Distal ascendin.5 cm Proximal descending isthmus: 2.2 cm Symmetric aortic root. Acute Aortic Pathology: no Sinotubular Junction: Preserved Pulmonary Arteries: Pulmonary Arteries: Normal Measurements: - Main pulmonary artery diameter: 2.3 cm - Right pulmonary artery diameter: 1.4 cm - Left pulmonary artery diameter: 1.6 cm Left Atrium: The left atrium is normal in size. LA volume: 51 ml (normal range: 31-112 ml) LA volume index: 30 ml/m (normal range: 14-55 ml/m ) LA area (4ch): 22 cm LA area (2ch): 17 cm Right Atrium: The right atrium is normal in size. RA volume: 48 ml (normal range: 24-105 ml) RA volume index: 28 ml/m (normal range: 17-70 ml/m ) RA area (4ch): 16 cm Left Ventricle: The left ventricle is normal in size. Left ventricular systolic function is normal. value (normal range) indexed (normal range) EDV: 140 ml (83-207 ml) EDVi: 83 ml/m (47-107 ml/m ) ESV: 64 ml (19-88 ml) ESVi: 37 ml/m (11-47 ml/m ) SV: 77 ml (55-127 ml) SVi: 45 ml/m (30-66 ml/m ) AUGUSTUS: 4.9 cm (4.2-6.2 cm) Jenna: 2.9 cm/m (2.4-3.5 cm/m ) ESD: 3.8 cm (2.6-3.8 cm) ESDi: 2.3 cm/m (1.5-2.2 cm/m ) EF: 55 % (51-76 %) CO: 6.0 l/min (3.9-8.3 l/min) CI: 3.5 l/min/m (2.1-4.3 ml/min/m ) mass: 89 g (57-152 g) LVMi: 52 g/m (36-75 g/m ) The AUGUSTUS measurement was taken from the short axis view and the ESD measurement was taken from the short axis view. There is no LV hypertrophy. LV segment wall thickness: basal anteroseptum: 0.8 cm basal inferolateral: 0.9 cm Wall Motion: There are no wall motion abnormalities. Delayed Enhancement: There is no delayed enhancement. Constellation of findings could be suggestive of No significant myocardial disease. Right Ventricle: The right ventricle is normal in size. Right ventricular systolic function is normal. value (normal range) indexed (normal range) EDV: 127 ml (87-244 ml) EDVi: 75 ml/m (53-123 ml/m ) ESV: 51 ml (29-117 ml) ESVi: 30 ml/m (17-59 ml/m ) SV: 76 ml (43-146 ml) SVi: 45 ml/m (28-75 ml/m ) EF: 60 % (42-72 %) CO: 5.9 l/min (2.8-8.3 l/min) CI: 3.5 l/min/m (1.5-4.5 l/min/m ) Fibro-fatty Infiltration: no Regional Wall Motion: Normal Aneurysm / Diverticulum Formation: no T1 / T2 / ECV T2 * : +---+ +----- + T1 pre (ms) +/- +---+ +----- + Mid 948.00 67.00 +---+ +----- + T2 mapping: Global: 47.55 +/- 8.79 ms T2 * weighted imaging: LV myocardium: 38 +/- 8 ms Aortic Valve: The aortic valve cusps are structurally normal. There is no aortic regurgitation. AV Flow Quantification: ST Junction Forward Volume: 69 ml Rever (more content not included)... [facility] Provider, [facility] 06/27/2025 * * *Final Report* * * DATE OF EXAM: Jun 27 2025 9:06AM [facility] 0703 - MRI CARD MORPH FUNC WO/W IVCON / PROCEDURE REASON: R00.2, I34.0, I49.3 * * * * Physician Interpretation * * * * Cardiac MRI Report: [facility] Date of service: 06/27/2025 7:39:51 AM Linked orders:[id number] CARD MORPH FUNC WO/W IVCON;[id number] CARDIAC VELOCITY FLOW MAP. Ordering physician: LEILA COON Technologist: MARY MENEZES Interpreting physician: Galina Baig MD PATIENT: Name: MR. ANATOLIY DUFFY Age: 29 years Gender: M MRI Scanner: Siemens Chery 1.5T 29 year old male with suspected cardiomyopathy. 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 This study is performed to quantify left/right ventricular size and function, valvular function, and to perform tissue characterization for the assessment of myocardial fibrosis/viability. MRI Techniques: * Turbo spin echo and gradient echo imaging for anatomic definition. * Dynamic cine imaging (SSFP and GRE) for cardiac chamber and wall-motion analysis, and valvular analysis. * Flow quantification sequences for hemodynamics in 2 locations: aortic root and mid-ascending aorta. * Delayed gadolinium enhancement analysis after injection of gadolinium-chelate. * T2STIR/ T2 Fat Saturated Imaging. * T1 mapping. * T2 mapping. * T2 * . Gadolinium Agent: 9 cc of Gadavist was administered. Baseline vital signs: 78 bpm Height: 162.60 cm BSA: 1.70 m Weight: 64.00 kg BMI: 24.2 kg/m FINDINGS: Extracardiac findings: The mediastinum is normal. No significant adenopathy is identified. Limited imaging of the lungs reveals no gross abnormalities. Cardiac structures: The cardiac chambers demonstrate normal atrioventricular and normal ventriculoarterial concordance. Systemic and pulmonary venous return is normal. Aorta: The thoracic aorta is normal in course, caliber and contour. Sinus: 2.6 cm Mid ascendin.4 cm Distal ascendin.5 cm Proximal descending isthmus: 2.2 cm Symmetric aortic root. Acute Aortic Pathology: no Sinotubular Junction: Preserved Pulmonary Arteries: Pulmonary Arteries: Normal Measurements: - Main pulmonary artery diameter: 2.3 cm - Right pulmonary artery diameter: 1.4 cm - Left pulmonary artery diameter: 1.6 cm Left Atrium: The left atrium is normal in size. LA volume: 51 ml (normal range: 31-112 ml) LA volume index: 30 ml/m (normal range: 14-55 ml/m ) LA area (4ch): 22 cm LA area (2ch): 17 cm Right Atrium: The right atrium is normal in size. RA volume: 48 ml (normal range: 24-105 ml) RA volume index: 28 ml/m (normal range: 17-70 ml/m ) RA area (4ch): 16 cm Left Ventricle: The left ventricle is normal in size. Left ventricular systolic function is normal. value (normal range) indexed (normal range) EDV: 140 ml (83-207 ml) EDVi: 83 ml/m (47-107 ml/m ) ESV: 64 ml (19-88 ml) ESVi: 37 ml/m (11-47 ml/m ) SV: 77 ml (55-127 ml) SVi: 45 ml/m (30-66 ml/m ) AUGUSTUS: 4.9 cm (4.2-6.2 cm) Jenna: 2.9 cm/m (2.4-3.5 cm/m ) ESD: 3.8 cm (2.6-3.8 cm) ESDi: 2.3 cm/m (1.5-2.2 cm/m ) EF: 55 % (51-76 %) CO: 6.0 l/min (3.9-8.3 l/min) CI: 3.5 l/min/m (2.1-4.3 ml/min/m ) mass: 89 g (57-152 g) LVMi: 52 g/m (36-75 g/m ) The AUGUSTUS measurement was taken from the short axis view and the ESD measurement was taken from the short axis view. There is no LV hypertrophy. LV segment wall thickness: basal anteroseptum: 0.8 cm basal inferolateral: 0.9 cm Wall Motion: There are no wall motion abnormalities. Delayed Enhancement: There is no delayed enhancement. Constellation of findings could be suggestive of No significant myocardial disease. Right Ventricle: The right ventricle is normal in size. Right ventricular systolic function is normal. value (normal range) indexed (normal range) EDV: 127 ml (87-244 ml) EDVi: 75 ml/m (53-123 ml/m ) ESV: 51 ml (29-117 ml) ESVi: 30 ml/m (17-59 ml/m ) SV: 76 ml (43-146 ml) SVi: 45 ml/m (28-75 ml/m ) EF: 60 % (42-72 %) CO: 5.9 l/min (2.8-8.3 l/min) CI: 3.5 l/min/m (1.5-4.5 l/min/m ) Fibro-fatty Infiltration: no Regional Wall Motion: Normal Aneurysm / Diverticulum Formation: no T1 / T2 / ECV T2 * : +---+ +----- + T1 pre (ms) +/- +---+ +----- + Mid 948.00 67.00 +---+ +----- + T2 mapping: Global: 47.55 +/- 8.79 ms T2 * weighted imaging: LV myocardium: 38 +/- 8 ms Aortic Valve: The aortic valve cusps are structurally normal. There is no aortic regurgitation. AV Flow Quantification: ST Junction Forward Volume: 69 ml Reverse Volume: 2 ml Net Forward Volume: 67 ml Regurgitant Fraction: 3 % (more content not included)... [facility] Radiology Study observation (narrative) [facility] MRI CARDIAC MORPH FUNC WO/W IVCONOrdered By: [facility] Provider on 06-27-2025 [facility] MRI CARDIAC VELOCITY FLOW MA Dre 06-27-2025 MRI CARDIAC VELOCITY FLOW MAP * * *Final Report* * * DATE OF EXAM: Jun 27 2025 9:06AM [facility] 0704 - MRI CARDIAC VELOCITY FLOW MAP / PROCEDURE REASON: R00.2, I34.0, I49.3 * * * * Physician Interpretation * * * * Cardiac MRI Report: [facility] Date of service: 06/27/2025 7:39:51 AM Linked orders:[id number] CARD MORPH FUNC WO/W IVCON;[id number] CARDIAC VELOCITY FLOW MAP. Ordering physician: LEILA COON Technologist: MARY MENEZES Interpreting physician: Galina Baig MD PATIENT: Name: MR. ANATOLIY DUFFY Age: 29 years Gender: M MRI Scanner: Siemens Chery 1.5T 29 year old male with suspected cardiomyopathy. 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 This study is performed to quantify left/right ventricular size and function, valvular function, and to perform tissue characterization for the assessment of myocardial fibrosis/viability. MRI Techniques: * Turbo spin echo and gradient echo imaging for anatomic definition. * Dynamic cine imaging (SSFP and GRE) for cardiac chamber and wall-motion analysis, and valvular analysis. * Flow quantification sequences for hemodynamics in 2 locations: aortic root and mid-ascending aorta. * Delayed gadolinium enhancement analysis after injection of gadolinium-chelate. * T2STIR/ T2 Fat Saturated Imaging. * T1 mapping. * T2 mapping. * T2 * . Gadolinium Agent: 9 cc of Gadavist was administered. Baseline vital signs: 78 bpm Height: 162.60 cm BSA: 1.70 m? Weight: 64.00 kg BMI: 24.2 kg/m? FINDINGS: Extracardiac findings: The mediastinum is normal. No significant adenopathy is identified. Limited imaging of the lungs reveals no gross abnormalities. Cardiac structures: The cardiac chambers demonstrate normal atrioventricular and normal ventriculoarterial concordance. Systemic and pulmonary venous return is normal. Aorta: The thoracic aorta is normal in course, caliber and contour. Sinus: 2.6 cm Mid ascendin.4 cm Distal ascendin.5 cm Proximal descending isthmus: 2.2 cm Symmetric aortic root. Acute Aortic Pathology: no Sinotubular Junction: Preserved Pulmonary Arteries: Pulmonary Arteries: Normal Measurements: - Main pulmonary artery diameter: 2.3 cm - Right pulmonary artery diameter: 1.4 cm - Left pulmonary artery diameter: 1.6 cm Left Atrium: The left atrium is normal in size. LA volume: 51 ml (normal range: 31-112 ml) LA volume index: 30 ml/m? (normal range: 14-55 ml/m?) LA area (4ch): 22 cm? LA area (2ch): 17 cm? Right Atrium: The right atrium is normal in size. RA volume: 48 ml (normal range: 24-105 ml) RA volume index: 28 ml/m? (normal range: 17-70 ml/m?) RA area (4ch): 16 cm? Left Ventricle: The left ventricle is normal in size. Left ventricular systolic function is normal. value (normal range) indexed (normal range) EDV: 140 ml (83-207 ml) EDVi: 83 ml/m? (47-107 ml/m?) ESV: 64 ml (19-88 ml) ESVi: 37 ml/m? (11-47 ml/m?) SV: 77 ml (55-127 ml) SVi: 45 ml/m? (30-66 ml/m?) AUGUSTUS: 4.9 cm (4.2-6.2 cm) Jenna: 2.9 cm/m? (2.4-3.5 cm/m?) ESD: 3.8 cm (2.6-3.8 cm) ESDi: 2.3 cm/m? (1.5-2.2 cm/m?) EF: 55 % (51-76 %) CO: 6.0 l/min (3.9-8.3 l/min) CI: 3.5 l/min/m? (2.1-4.3 ml/min/m?) mass: 89 g (57-152 g) LVMi: 52 g/m? (36-75 g/m?) The AUGUSTUS measurement was taken from the short axis view and the ESD measurement was taken from the short axis view. There is no LV hypertrophy. LV segment wall thickness: basal anteroseptum: 0.8 cm basal inferolateral: 0.9 cm Wall Motion: There are no wall motion abnormalities. Delayed Enhancement: There is no delayed enhancement. Constellation of findings could be suggestive of No significant myocardial disease. Right Ventricle: The right ventricle is normal in size. Right ventricular systolic function is normal. value (normal range) indexed (normal range) EDV: 127 ml (87-244 ml) EDVi: 75 ml/m? (53-123 ml/m?) ESV: 51 ml (29-117 ml) ESVi: 30 ml/m? (17-59 ml/m?) SV: 76 ml (43-146 ml) SVi: 45 ml/m? (28-75 ml/m?) EF: 60 % (42-72 %) CO: 5.9 l/min (2.8-8.3 l/min) CI: 3.5 l/min/m? (1.5-4.5 l/min/m?) Fibro-fatty Infiltration: no Regional Wall Motion: Normal Aneurysm / Diverticulum Formation: no T1 / T2 / ECV T2 * : +---+ +----- + T1 pre (ms) +/- +---+ +----- + Mid 948.00 67.00 +---+ +----- + T2 mapping: Global: 47.55 +/- 8.79 ms T2 * weighted imaging: LV myocardium: 38 +/- 8 ms Aortic Valve: The aortic valve cusps are structurally normal. There is no aortic regurgitation. AV Flow Quantification: ST Junction Forward Volume: 69 ml Reverse Volume: 2 ml Net Forward Volume: 67 ml Regurgitant Fraction: 3 % Pulmonic Valve: The pulmonic valve was not seen or not interrogated. PV Flow Quantification: Pulmonic Flow Quantification: Fo (more content not included)... Normal [facility] Office Visit Reporton 2024 Office Visit Report [facility] [address] [place] [address] OFFICE VISIT Date of Service: 06/12/25 MR#: [id number] Acct: [id number] Patient: ANATOLIY DUFFY Rep #: [id number] : 1995 Provider: GRECIA Townsend Age/Sex: 29/M Location: [facility] Status: Signed Intake Vital Signs 01/30/25 07:02 Height 1.63 m Weight: 88.451 kg BMI 33.5 BP 122/80 H Blood Pressure Location Lt brachial Position Sitting Respiration 18 Pulse 81 Pulse Source NIBP Intake Visit Reasons: RESPIRATOR ISSUANCE TRAINING/ ROE Chief Complaint: respirator clearance Allergies Cephalosporins Allergy (Severe, Verified 01/30/25 09:36) Hives pollen extracts Allergy (Mild, Verified 01/30/25 09:36) HEAD CONGESTION PFSH Medical History Anxiety Benign neoplasm of brain Claustrophobia Current tobacco use Frequent PVCs GERD (gastroesophageal reflux disease) Mitral valve insufficiency Palpitations Vertigo Surgical History Hx of appendectomy Hx of tonsillectomy Family History Sister Tachycardia Social History Smoking Status: Never smoker Smokeless tobacco user: other alcohol intake: current alcohol intake frequency: holidays/special occasions only caffeine: Yes HPI HPI Chief Complaint: respirator clearance Details: ANATOLIY DUFFY, is a 29 M who presents to the office today for respirator clearance Coding Level of Care Code No Charge Diagnoses Normal respiratory questionnaire on review Assessment and Plan Assessment and Plan (1) Normal respiratory questionnaire on review: Status: Acute Plan: respirator clearance - see accompanying paperwork. 06/12/25 1021 Date Dagoberto Condon Signature: Date (if applicable) CC: [facility] 05-30-2025 [facility] Telephone ([facility]) DUFFYANATOLIY Leif ([id number]) 1995 M Date Time Provider Department 05/30/25 CEE GIBSON During your visit today, we recorded the following information about you: Cee Gibson, RT(R) 05/30/2025 1:13 PM Signed Please provide protocol for this patients CMR scheduled for 06/27/2025, thank you! Allergies As of Date: 05/30/2025 (No Known Allergies) Date Reviewed: 03/26/2019 Reviewed by: Valorie Monge (Rn), RN - Fully Assessed Prescriptions as of 05/30/2025 - predniSONE (DELTASONE) 50 mg tab Take 9 tab with breakfast, 8 tab with lunch, and 8 tab with dinner. Total 25 tabs (1250 mg) daily. - omeprazole (PRILOSEC) 20 mg capsule Take 1 capsule by mouth once daily. - memantine (NAMENDA) 10 mg tablet Take 1 tablet by mouth twice daily. - docosahexanoic acid/epa (FISH OIL ORAL) Take by mouth once daily. Problem List As Of Date 05/30/2025 Noted Resolved Nystagmus [H55.00] White matter abnormality on MRI of brain [R90.8* Encounter Status:Closed by CEE GIBSON on 05/30/25 [facility] 12 Lead EKG performed by [facility] on 01-30-2025 12 Lead EKG performed by [id number] [place] [address] 12 Lead EKG performed by [facility] 01/30/25 0703 MR#: [id number] Acct: [id number] Name: ANATOLIY DUFFY Rep #: [id number] : 1995 29 From: Leila Coon MD Attending Dr: Dr. Leila Coon MD Status: DEP AMB Ordering Dr: Leila Coon MD Date: 01/30/25 [facility]: [facility] Sex: M C Admitted: [facility]/12 Lead EKG performed by [facility] ECG Report Interpretation ----Sinus Rhythm WITHIN NORMAL LIMITSElectronically signed on 04/10/2025 at 13:[address] Leila Coon [facility] Version 8610 04/10/25 1317 Date Leila Coon MD CC: Dr. Javier Gu MD Date Dictated: 01/30/25702 Date Transcribed: 01/30/25702 Drop Hammer Operator Helper: LAI Signed Normal [facility] Cardiology Visit Reporton Cardiology Visit Report [facility] [address] [place] [address] OFFICE VISIT Date of Service: 01/30/25 MR#: [id number] Acct: [id number] Name: ANATOLIY DUFFY Rep #: [id number] : 1995 Provider: Dr. Leila Coon MD Age/Sex: 29/M Location: [facility] Status: Signed HPI HPI History of Present Illness Details: This gentleman has past medical history significant for neuromyelitis optica spectrum disorder (NMOSD). For the past some time, he has been complaining of intermittent palpitations. According to him, he feels them 2 or 3 times a week. Per him, it could last hours at a time. He feels his heart racing and irregular. No associated chest pain or shortness of breath. No lightheadedness or dizziness. No syncope or presyncope. Patient has had workup ordered by his primary care physician. TSH was within normal limits. His echocardiogram showed ejection fraction of 50 to 55%. Anterolateral and inferoapical styles could not be well-visualized. No significant valvular abnormality was reported. Patient also had an event monitor done. The referral to us notes that it showed frequent PVCs. We are waiting on the official report. Patient denies any history of illicit substance abuse. No EtOH abuse. Denies excessive caffeine intake. No history of sudden cardiac in the family. Per him, his father was diagnosed as a carrier for HOCM. Intake Vital Signs 07/21/23 13:57 01/30/25 07:02 Height 5 ft 4 in 5 ft 4 in Weight: 195 lb BMI 33.5 BP 122/80 H Blood Pressure Location Lt brachial Position Sitting Respiration 18 Pulse 81 Pulse Source NIBP Intake Visit Reasons: PVCs (Armando) Speech Assistant Required: No Accompanied by: Is patient in pain?: Yes (chest pains) Pain scale (1-10): 1 Allergies Cephalosporins Allergy (Severe, Verified 01/30/25 09:36) Hives pollen extracts Allergy (Mild, Verified 01/30/25 09:36) HEAD CONGESTION Medications ???Medication ???Instructions ???Recorded ???Confirmed ???Type omeprazole 20 mg capsule,delayed 20 mg PO QDAY PRN 01/30/25 5 History release Ejection fraction %: 50 Have you fallen in the past year?: No PFSH Medical History Anxiety Benign neoplasm of brain Claustrophobia Current tobacco use Frequent PVCs GERD (gastroesophageal reflux disease) Mitral valve insufficiency Palpitations Vertigo Surgical History Hx of appendectomy Hx of tonsillectomy Family History Sister Tachycardia Social History Smoking Status: Never smoker Smokeless tobacco user: other alcohol intake: current alcohol intake frequency: holidays/special occasions only caffeine: Yes ROS Const Const: Positive for headache(s); Negative for fatigue, weakness or weight gain ENT ENT: Positive for headache(s); Negative for dizziness, Nosebleed/epistaxis or balance problems Cardio Chest Pain: Yes Frequency: weekly (a few times weekly) Character: sharp Onset: at rest Location: left chest Duration: hours (1-4) Palpitations: Yes feels like its: fast and other (fluttering) Edema: Bilateral (hands) Muscle aches with walking: None Resp Respiratory: Negative for SOB with activity, SOB at rest or SOB orthopnea SOB lying down GI GI: Positive for heartburn (treated OTC); Negative nausea or vomiting Musc Musc: Negative for muscle aches/ myalgia, muscle weakness, joint pain or balance problems Neuro Neuro: Positive for lightheadedness (occasional) and headache(s); Negative for dizziness, near syncope, syncope or weakness Endo Endo: Negative for fatigue Cardiology Exam Const Appearance: comfortable and no acute distress Nutritional Appearance: well nourished Neck Neck: no JVD Carotids: Negative bruit Chest Auscultation: Bilateral: Clear to Auscultation Cardio Rate: regular rate Rhythm: regular rhythm Heart sounds: S1 normal and S2 normal Neuro General: patient alert, patient awake and patient oriented x3 Extremities Lower Extremity Edema: None: Bilateral Supplemental Info Supplemental Information Echocardiogram 12/19/2024: Conclusion: 1. Left ventricle is normal in size and thickness. Systolic ejection fraction 50-55%. Anterolateral and inferoapical styles are inadequately visualized. 2. There are no significant valvular dysfunction seen 3. Right ventricle is normal in size and systolic function 4. Estimated right ventricular systolic pressure is 22 mmHg. Assessment and Plan Assessment and Plan (1) Intermittent palpitations: Status: Chronic Plan: PVCs noted on event monitor as per referral report. Fin (more content not included)... Normal [facility] Magnesiumon 01-30-2025 Magnesium [Mass/Vol] 2.0 mg/dL Normal 1.5-2.2 [facility] Comment on above: Performed By: #### L [phone] ####[facility] [address] [place], [place], [id number] Magnesium (Unsp spec) [Mass/ Vol]Ordered By: Leila Coon on 01-30-2025 Magnesium [Mass/Vol] 2.0 mg/dL 1.5-2.2 [facility] CV ECHO COMPLETEon CV ECHO COMPLETE [address] [address] Patient: ANATOLIY DUFFY Phone#: : 1995 Age: 29 Gender: M Pt. Type: Out Account: [id number] Location: [facility] Ordering: CHANDLER ROBERTS Exam Date: 12/19/2024/8:50 Family Phys: Charge Code: [id number] Physician: [place] Order #: [id number] Dose#: PROCEDURE: ECHOCARDIOGRAM WITH DOPPLER AND COLOR FLOW HISTORY: Patient is a 29-year-old female with palpitations INDICATIONS: Palpitations COMPARISON: None. TECHNIQUE: A 2-D ultrasound, color spectral Doppler and M-mode evaluation of the heart and great vessels. PATIENT MEASUREMENTS: Height (in.): 64 BSA: 1.91 Weight (lbs.): 190 BP: 146/76 Windows Server Administrator: PRISCILA M MODE 2D MEASUREMENTS AND CALCULATIONS: LVIDd: 5.03 cm LVIDs: 2.51 cm IVSd: 1.06 cm LVPWd: 0.90 cm LVOT diam: 2.0 cm FS: 50.17 % Ao Root diam: 2.37 cm LA diam: 3.7 cm LA Volume Index: 20 mL/m2 LA A4 Area: 16.75 cm2 RA A4 Area: 16 cm2 RVDd: 3.84 cm TAPSE: 25 mm DOPPLER MEASUREMENTS AND CALCULATIONS MITRAL MV E MAX keely: 0.92 m/s MV A MAX keely: 0.51 m/s MV E-A ratio: 1.79 MV V2 max: 0.88 m/s MV max P.08 mm[Hg] MV V2 mean: 0.54 m/s Continued Report - Page 2 of 3 Patient: ANATOLIY DUFFYIvan Phone#: : 1995 Age: 29 Gender: M Pt. Type: Out Account: [id number] Location: 052 Ordering: CHANDLER ROBERTS Exam Date: 12/19/2024/8:50 Family Phys: Charge Code: [id number] Physician: Clearwater Order #: [id number] Dose#: MV mean P.28 mm[Hg] MV V2 VTI: 25.02 cm Lat Peak E' Keely 13 cm/sec Septal Peak E' KEELY 10 cm/sec E/E' lateral 7 E/E' medial 9 AORTIC Ao V2 max: 1.28 m/s Ao max P.54 mm[Hg] Ao V2 mean: 0.97 m/s Ao mean P.06 mm[Hg] Ao V2 VTI: 25.18 cm LV V1 Max 1.03 m/s LV V1 Max PG 4.20 mm[Hg] LV V1 Mean PG 2.27 mm[Hg] LV V1 mean 0.70 m/s LV V1 VTI 20.46 cm PULMONIC PA V2 Max 0.99 m/s PA Max PG 3.94 mm[Hg] TRICUSPID TR Max Keely 2.15 m/s TR max PG 18.73 mm[Hg] RVSP 22 mm Hg 2D/M-MODE AND COLOR FLOW LEFT VENTRICLE: Left ventricle is normal in size and thickness. Systolic ejection fraction is 50-55%. Anterolateral wall and inferior apical styles are inadequately visualized. The rest of the left ventricle have normal wall motion. Normal diastolic function. WALL MOTION: 1 - Basal anterior: Normal. 7 - Mid anterior: Normal. 13 - Apical anterior: Normal 2 - Basal anteroseptal: Normal. 8 - Mid anteroseptal: Normal. 14 - Apical septal: Normal. 3 - Basal inferoseptal: Normal. 9 - Mid inferoseptal: Normal. 15 - Apical inferior: 4 - Basal inferior: Normal. 10-Mid inferior: Normal. 16 - Apical lateral: Normal. 5 - Basal inferolateral: Normal. 11-Mid inferolateral: Normal. 6 - Basal anterolateral: 12-Mid anterolateral: RIGHT VENTRICLE: Right ventricle is normal in size and systolic function. LEFT ATRIUM: Left atrium is normal in size RIGHT ATRIUM: Right atrium is normal size. ATRIAL SEPTUM: Inadequately visualized. Continued Report - Page 3 of 3 Patient: ANATOLIY DUFFY Phone#: : 1995 Age: 29 Gender: M Pt. Type: Out Account: [id number] Location: [facility] Ordering: CHANDLER ROBERTS Exam Date: 12/19/2024/8:50 Family Phys: Charge Code: [id number] Physician: Clearwater Order #: [id number] Dose#: MITRAL VALVE: Mitral valve appears normal structure. There is trivial regurgitation no stenosis seen. TRICUSPID VALVE: Tricuspid valve is normal structure. There is trivial regurgitation and no stenosis seen AORTIC VALVE: Aortic valve is trileaflet. There is no regurgitation or stenosis seen PULMONIC VALVE: Pulmonic valve is normal structure. There is no regurgitation or stenosis seen. AORTIC ROOT: Aortic root is normal in size AORTIC ARCH: Aortic arch is normal in size DESC THORACIC AORTA: Inadequately visualized. Doppler shows normal flow IVC/SVC: Not visualized PULMONARY VEINS: Normal pulmonic vein flow PERICARDIUM: There is no pericardial effusion seen. CONCLUSION: 1. Left ventricle is normal in size and thickness. Systolic ejection fraction 50-55%. Anterolateral and inferoapical styles are inadequately visualized. 2. There are no significant valvular dysfunction seen 3. Right ventricle is normal in size and systolic function 4. Estimated right ventricular systolic pressure is 22 mm Hg. Dictated by: DYLAN PEÑA MD on 12/19/2024 at 17:05 Approved by: DYLAN PEÑA MD on 12/19/2024 at 17:41 Normal [facility] CBC (INCLUDES DIFF/PLT)on Basophils (Bld) [#/Vol] 0.046 10*3/uL Normal 0-200 [facility] Comment on above: Performed By: #### 6 399, 25219 #### [facility] [place] [address] Cattle Feeder: Crescencio Walden MD Basophils/100 WBC (Bld) 0.5 % Normal [facility] Comment on above: Performed By: #### 6 399, 37864 #### [facility] [place] [address] Cattle Feeder: Crescencio Walden MD Eosinophils (Bld) [#/Vol] 0.202 10*3/uL Normal 15-500 [facility] Comment on above: Performed By: #### 6 399, 41042 #### [facility] [place] [address] Cattle Feeder: Crescencio Walden MD Eosinophils/100 WBC (Bld) 2.2 % Normal [facility] Comment on above: Performed By: #### 6 399, 05072 #### [facility] [place] [address] Cattle Feeder: Crescencio Walden MD Erythrocyte distribution width (RBC) [Ratio] 12.8 % Normal 11.0-15.0 [facility] Comment on above: Performed By: #### 6 399, 45074 #### [facility] [place] [address] Cattle Feeder: Crescencio Walden MD Hematocrit (Bld) [Volume fraction] 44.1 % Normal 38.5-50.0 [facility] Comment on above: Performed By: #### 6 399, 52986 #### [facility] of [place] [address] Cattle Feeder: Crescencio Walden MD Hemoglobin (Bld) [Mass/Vol] 15.8 g/dL Normal 13.2-17.1 [facility] Comment on above: Performed By: #### 6 399, 37944 #### [facility] [place] [address] Cattle Feeder: Crescencio Walden MD Lymphocytes (Bld) [#/Vol] 1.941 10*3/uL Normal 850-3900 [facility] Comment on above: Performed By: #### 6 399, 31256 #### [facility] [place] [address] Cattle Feeder: Crescencio Walden MD Lymphocytes/100 WBC (Bld) 21.1 % Normal [facility] Comment on above: Performed By: #### 6 399, 61043 #### [facility] [place] [address] Cattle Feeder: Crescencio Walden MD MCH (RBC) [Entitic mass] 31.2 pg Normal 27.0-33.0 [facility] Comment on above: Performed By: #### 6 399, 33549 #### [facility] [place] [address] Cattle Feeder: Crescencio Walden MD MCHC (RBC) [Mass/Vol] 35.8 g/dL Normal 32.0-36.0 [facility] Comment on above: Result Comment: For adults, a slight decrease in the calculated MCHC value (in the range of 30 to 32 g/dL) is most likely not clinically significant; however, it should be interpreted with caution in correlation with other red cell parameters and the patient's clinical condition. Performed By: #### 6 399, 67774 #### [facility] [place] [address] Cattle Feeder: Crescencio Walden MD MCV (RBC) [Entitic vol] 87.2 fL Normal 80.0-100.0 [facility] Comment on above: Performed By: #### 6 399, 59622 #### [facility] [place] [address] Cattle Feeder: Crescencio Walden MD Monocytes (Bld) [#/Vol] 0.736 10*3/uL Normal 200-950 [facility] Comment on above: Performed By: #### 6 399, 84336 #### [facility] [place] [address] Cattle Feeder: Crescencio Walden MD Monocytes/100 WBC (Bld) 8.0 % Normal [facility] Comment on above: Performed By: #### 6 399, 74399 #### [facility] [place] [address] Cattle Feeder: Crescencio Walden MD Neutrophils (Bld) [#/Vol] 6.274 10*3/uL Normal 0224-9055 [facility] Comment on above: Performed By: #### 6 399, 02627 #### [facility] [place] [address] Cattle Feeder: Crescencio Walden MD Neutrophils/100 WBC (Bld) 68.2 % Normal [facility] Comment on above: Performed By: #### 6 399, 67632 #### [facility] [place] [address] Cattle Feeder: Crsecencio Walden MD Platelet mean volume (Bld) [Entitic vol] 9.7 fL Normal 7.5-12.5 [facility] Comment on above: Performed By: #### 6 399, 06779 #### [facility] [place] [address] Cattle Feeder: Crescencio Walden MD Platelets (Bld) [#/Vol] 253 10*3/uL Normal 140-400 [facility] Comment on above: Performed By: #### 6 399, 37811 #### [facility] of [address], [address] [place] [address] Cattle Feeder: Crescencio Walden MD RBC (Bld) [#/Vol] 5.06 10*6/uL Normal 4.20-5.80 [facility] Comment on above: Performed By: #### 6 399, 44184 #### [facility] [place] [address] Cattle Feeder: Crescencio Walden MD WBC (Bld) [#/Vol] 9.2 10*3/uL Normal 3.8-10.8 [facility] Comment on above: Performed By: #### 6 399, 04798 #### [facility] [place] [address] Cattle Feeder: Crescencio Walden MD [facility] METABOLIC PANE [facility] 12-14-2024 Albumin [Mass/Vol] 5.0 g/dL Normal 3.6-5.1 [facility] Comment on above: Performed By: #### 6 399, 10195 #### [facility] [place] [address] Cattle Feeder: Crescencio Walden MD Albumin/Globulin [Mass ratio] 2.0 {ratio} Normal 1.0-2.5 [facility] Comment on above: Performed By: #### 6 399, 31615 #### [facility] [place] [address] Cattle Feeder: Crescencio Walden MD ALP [Catalytic activity/Vol] 74 U/L Normal 36-130 [facility] Comment on above: Performed By: #### 6 399, 48586 #### [facility] [place] [address] Cattle Feeder: Crescencio Walden MD ALT [Catalytic activity/Vol] 88 U/L High 9-46 [facility] Comment on above: Performed By: #### 6 399, 61985 #### [facility] [place] [address] Cattle Feeder: Crescencio Walden MD AST [Catalytic activity/Vol] 40 U/L Normal 10-40 [facility] Comment on above: Performed By: #### 6 399, 09751 #### [facility] of [address], [address] [place] [address] Cattle Feeder: Crescencio Walden MD Bilirubin [Mass/Vol] 0.7 mg/dL Normal 0.2-1.2 [facility] Comment on above: Performed By: #### 6 399, 94786 #### [facility] of [address], [address] [place] [address] Cattle Feeder: Crescencio Walden MD BUN/CREATININE RATIO SEE NOTE: Normal 6-22 [facility] Comment on above: Result Comment: Not Reported: BUN and Creatinine are within reference range. Performed By: #### 6 399, 09087 #### [facility] of [address], [address] [place] [address] Cattle Feeder: Crescencio Walden MD Calcium [Mass/Vol] 9.9 mg/dL Normal 8.6-10.3 [facility] Comment on above: Performed By: #### 6 399, 98056 #### [facility] of [address], [address] [place] [address] Cattle Feeder: Crescencio Walden MD Chloride [Moles/Vol] 106 mmol/L Normal 98-110 [facility] Comment on above: Performed By: #### 6 399, 54739 #### [facility] of [address], [address] [place] [address] Cattle Feeder: Crescencio Walden MD CO2 [Moles/Vol] 24 mmol/L Normal 20-32 [facility] Comment on above: Performed By: #### 6 399, [id number] #### [facility] of [address], [address] [place] [address] Cattle Feeder: Crescencio Walden MD Creatinine [Mass/Vol] 0.90 mg/dL Normal 0.60-1.[address] [facility] Comment on above: Performed By: #### 6 399, [id number] #### [facility] of [address], [address] [place] [address] Cattle Feeder: Crescencio Walden MD GFR/1.73 sq M.predicted among non-blacks MDRD (S/P/Bld) [Vol rate/Area] 119 mL/min/{1.73_m2} Normal > OR = 60 [facility] Comment on above: Performed By: #### 6 399, [id number] #### [facility] [place] [address] Cattle Feeder: Crescencio Walden MD Globulin (S) [Mass/Vol] 2.5 g/dL Normal 1.9-3.7 [facility] Comment on above: Performed By: #### 6 399, [id number] #### [facility] [place] [address] Cattle Feeder: Crescencio Walden MD Glucose [Mass/Vol] 92 mg/dL Normal 65-99 [facility] Comment on above: Result Comment: Fasting reference interval Performed By: #### 6 399, 66928 #### [facility] [place] [address] Cattle Feeder: Crescencio Walden MD Potassium [Moles/Vol] 3.7 mmol/L Normal 3.5-5.3 [facility] st [facility] Comment on above: Performed By: #### 6 399, 63742 #### [facility] [place] [address] Cattle Feeder: Crescencio Walden MD Protein [Mass/Vol] 7.5 g/dL Normal 6.1-8.1 [facility] Comment on above: Performed By: #### 6 399, 02507 #### [facility] of [place] [address] Cattle Feeder: Crescencio Walden MD Sodium [Moles/Vol] 141 mmol/L Normal 135-146 [facility] Comment on above: Performed By: #### 6 399, 11726 #### [facility] [place] [address] Cattle Feeder: Crescencio Walden MD Urea nitrogen [Mass/Vol] 21 mg/dL Normal 7-25 [facility] Comment on above: Performed By: #### 6 399, 59516 #### [facility] [address] [place] [address], [address] Cattle Feeder: Crescencio Walden MD TSH W/REFLEX TO FT4on 2024 TSH W/REFLEX TO FT4 2.32 mIU/L Normal 0.40-4.50 [facility] Comment on above: Performed By: #### 6 399, 32505 #### [facility] [address] [place] [address], [address] [place] [address] Cattle Feeder: Crescencio Walden MD Laboratory - Chemistry and C hemistry - challengeon 12-13-2024 Albumin [Mass/Vol] 5.0 g/dL Normal 3.6 - 5.1 g/dL [place] [employer] [facility], [facility].; [employer]. Albumin/Globulin [Mass ratio] 2.0 {ratio} Normal 1.0 - 2.5 [employer] [employer], [facility].; [employer] ALP [Catalytic activity/Vol] 74 U/L Normal 36 - 130 U/L [employer], [facility].; [employer] ALT [Catalytic activity/Vol] 88 U/L Abnormal 9 - 46 U/L [employer], [facility].; [employer] AST [Catalytic activity/Vol] 40 U/L Normal 10 - 40 U/L [employer], [facility].; [employer] Bilirubin [Mass/Vol] 0.7 mg/dL Normal 0.2 - 1 .2 mg/dL [place] [employer], [employer] Calcium [Mass/Vol] 9.9 mg/dL Normal 8.6 - 10. 3 mg/dL [employer], [employer] Chloride [Moles/Vol] 106 mmol/L Normal 98 - 11 0 mmol/L [employer] CO2 [Moles/Vol] 24 mmol/L Normal 20 - 32 mmol/L [employer] Creatinine [Mass/Vol] 0.90 mg/dL Normal 0.60 - 1.24 mg/dL [facility].; [facility], [facility] GFR/1.73 sq M.predicted among non-blacks MDRD (S/P/Bld) [Vol rate/Area] 119 mL/min/{1.73_m2} Normal [facility].; [facility], [facility] Glucose [Mass/Vol] 92 mg/dL Normal 65 - 99 mg/dL [facility].; [facility], [facility] Potassium [Moles/Vol] 3.7 mmol/L Normal 3.5 - 5.3 mmol/L [facility]; [facility], [facility] Protein [Mass/Vol] 7.5 g/dL Normal 6.1 - 8.1 g/dL [facility]; [facility], [facility] Sodium [Moles/Vol] 141 mmol/L Normal 135 - 146 mmol/L [facility], [facility]; [facility], [facility] Urea nitrogen [Mass/Vol] 21 mg/dL Normal 7 - 25 mg/dL [facility]; [facility], [facility] Laboratory - Hematology and Cell countson 12-13-2024 Basophils (Bld) [#/Vol] 0.046 10*3/uL Normal 0 - 200 {cells/uL} [facility]; [facility], [facility]. Basophils/100 WBC (Bld) 0.5 % Normal [facility]; [facility], [facility] Eosinophils (Bld) [#/Vol] 0.202 10*3/uL Normal 15 - 500 {cells/uL} [facility].; [facility], [facility] Eosinophils/100 WBC (Bld) 2.2 % Normal [facility]; [facility], [facility] Erythrocyte distribution width (RBC) [Ratio] 12.8 % Normal 11.0 - 15.0 % [facility].; [facility], [facility] Hematocrit (Bld) [Volume fraction] 44.1 % Normal 38.5 - 50.0 % [facility]; [facility], [facility] Hemoglobin (Bld) [Mass/Vol] 15.8 g/dL Normal 13.2 - 17.1 g/dL [facility], [facility].; [facility], [facility]. Lymphocytes (Bld) [#/Vol] 1.941 10*3/uL Normal 850 - 3900 {cells/uL} [facility], [facility].; [facility], [employer] Lymphocytes/100 WBC (Bld) 21.1 % Normal [facility], [facility].; [facility], [facility]. MCH (RBC) [Entitic mass] 31.2 pg Normal 27.0 - 33.[address] [facility], [facility].; [facility], [facility]. MCHC (RBC) [Mass/Vol] 35.8 g/dL Normal 32.0 - 36.0 g/dL [facility], [facility].; [facility], [facility]. MCV (RBC) [Entitic vol] 87.2 fL Normal 80.0 - 100.[address] [facility], [facility].; [facility], [facility]. Monocytes (Bld) [#/Vol] 0.736 10*3/uL Normal 200 - 950 {cells/uL} [facility], [facility].; [place] [employer] Monocytes/100 WBC (Bld) 8.0 % Normal [facility], [facility].; [facility], [facility]. Neutrophils (Bld) [#/Vol] 6.274 10*3/uL Normal 1500 - 7800 {cells/uL} [facility], [facility].; [employer] [employer] Neutrophils/100 WBC (Bld) 68.2 % Normal [facility], [facility].; [employer] Platelet mean volume (Bld) [Entitic vol] 9.7 fL Normal 7.5 - 12.5 fL [facility], [facility].; [employer] Platelets (Bld) [#/Vol] 253 10*3/uL Normal 140 - [address] [facility] [address] [facility].; [facility], [facility] RBC (Bld) [#/Vol] 5.06 10*6/uL Normal 4.20 - 5.8 0 {Million/uL} [facility], [facility] [employer] WBC (Bld) [#/Vol] 9.2 10*3/uL Normal 3.8 - 10.8 [facility].; [facility] No Panel Informationon 12-13 BUN/CREATININE RATIO SEE NOTE: Normal 6 - 22 [facility].; [facility] GLOBULIN 2.5 Normal 1.9 - 3.7 [facility]; [facility]. TSH W/REFLEX TO FT4 2.32 {mIU/L} Normal 0.40 - 4 .50 {mIU/L} [facility].; [facility] LIPID PROFILEon 08-03-2024 Cholesterol [Mass/Vol] 151 mg/dL Normal 0 - 240 mg/dL [facility].; [facility]. Comment on above: Performed By: #### 2 [id number] #### [facility],[address] [place], [place] [id number] Cholesterol in HDL [Mass/Vol] 44 mg/dL Normal 40 - 60 [facility] Comment on above: Performed By: #### 2 [id number] #### [address] [address] Cholesterol in LDL [Mass/Vol] 73 mg/dL Normal 0 - 129 mg/dL [facility].; [facility]. Comment on above: Performed By: #### 2 [address]4036 #### [address] [address] Cholesterol.total/Cho lesterol in HDL [Mass ratio] 3.4 {ratio} Normal 0.0 - 5.0 [facility].; [facility] Comment on above: Performed By: #### 2 25528 #### [facility],[address] [place] [id number] Lipid 1996 panel Normal [facility] Comment on above: Result Comment: LIPI D PROFILE Performed By: #### 2 15719 #### [facility],[address] [place] [address] Triglyceride [Mass/Vol] 172 mg/dL Abnormal 0 - 150 mg/dL [facility], [facility].; [facility], [facility]. Comment on above: Performed By: #### 2 40842 #### [facility],[address] [place] [address] Laboratory - Chemistry and C hemistry - challengeon 08-03-2024 Cholesterol in HDL [Mass or moles/Vol] 44 mg/dL Normal 40 - 60 mg/dL [facility], [facility].; [facility], [facility] Lipid 1996 panel LIPID PROFILE Normal [facility].; [facility], [facility] Absolute lymphocyte countOrd ered By: Jacob James on 07-21-2023 Lymphocytes Auto (Unsp spec) [#/Vol] 2.07 10*3/uL 0.83-4.51 [facility] Basophil percentageOrdered B y: Jacob James on 07-21-2023 Basophils/100 WBC (Bld) 0.7 % 0-1 [facility] Chloride [Moles/Vol] 108 mmol/L 98-107 [facility] Eosinophils/100 WBC (Bld) 1.8 % 0-5 [facility] Glucose [Mass/Vol] 90 mg/dL 74-106 [facility] Neutrophils (Bld) [#/Vol] 6.5 10*3/uL 2.0-7.7 [facility] Neutrophils/100 WBC (Bld) 66.3 % 47-70 [facility] Potassium [Moles/Vol] 3.8 mmol/L 3.5-5.1 [facility] Sodium [Moles/Vol] 140 mmol/L 136-145 [facility] WBC (Bld) [#/Vol] 9.8 10*3/uL 4.4-11.0 [facility] Blood erythrocytes count (nu mber/volume)Ordered By: Jacob James on 07-21-2023 RBC (Bld) [#/Vol] 5.10 10*6/uL 4.6-6.2 [facility] Blood hemoglobin measurement (mass/volume)Ordered By: Jacob James on 07-21-2023 Hemoglobin (Bld) [Mass/Vol] 15.2 g/dL 13.0-16.5 [facility] Blood lymphocytes/100 leukoc ytesOrdered By: Jacobkelly James on 07-21-2023 Lymphocytes/100 WBC (Bld) 21.2 % 19-41 [facility] Blood monocytes/100 leukocyt esOrdered By: Jacobkelly James on 07-21-2023 Monocytes/100 WBC (Bld) 9.3 % 0-10 [facility] Blood platelet mean volumeOr dered By: Jacob James on 07-21-2023 Platelet mean volume (Bld) [Entitic vol] 9.0 fL 6.2-12.0 [facility] Determination of erythrocyte mean corpuscular volume (MCV)Ordered By: Jacobkelly James on 07-21-2023 MCV (RBC) [Entitic vol] 87.6 fL 80-94 [facility] Hematocrit Auto (Bld) [Volum e fraction]Ordered By: Jacobkelly James on 07-21-2023 Hematocrit (Bld) [Volume fraction] 44.7 % 40-54 [facility] Laboratory - Chemistry and C hemistry - challengeOrdered By: Jacobkelly James on 07-21-2023 CO2 [Moles/Vol] 27.0 mmol/L 21.0-32.0 [facility] Urea nitrogen/Creatinine [Mass ratio] 17.0 mg/mg 10-20 [facility] Laboratory - Hematology and Cell countsOrdered By: Jacobkelly James on 07-21-2023 Erythrocyte distribution width (RBC) [Entitic vol] 38.5 fL 35.1-43.9 [facility] Erythrocyte distribution width (RBC) [Ratio] 12.1 % 11.6-14.6 [facility] Immature granulocytes/100 WBC (Bld) 0.700 % 0.0-0.9 [facility] Comment on above: IG% - Immature Granu locytes (promyelocytes, myelocytes and metamyelocytes) > 1% indicates that a LEFT SHIFT is Present. MCH (RBC) [Entitic mass] 29.8 pg 27.0-32.0 [facility] Nucleated RBC/100 WBC (Bld) [Ratio] 0 % 0-5 [facility] MCHC Auto (RBC) [Mass/Vol]Or dered By: Jacobkelly James on 07-21-2023 MCHC (RBC) [Mass/Vol] 34.0 g/dL 32-36 [facility] No Panel InformationOrdered By: Jacob James on 07-21-2023 Estimated Creatinine Clearance Calc 105.58 ml/min [facility] Estimated GFR (MDRD) Amer 133 mL/min >60 [facility] Comment on above: GFR Calc Estimated GFR (MDRD) Non-Af Amer 110 mL/min >60 [facility] Comment on above: Non- GFR Calc Troponin I High Sensitivity < 3 pg/mL 3.0-78.0 [facility] Comment on above: Please Note: New Fauzia t Units and Gender Specific Reference Ranges. For more information see Policy Stat Procedure [place] High Sensitivity Troponin (TNIH) and attachments. Platelets bldOrdered By: Jacob James on 07-21-2023 Platelets (Bld) [#/Vol] 260 10*3/uL 150-450 [facility] Serum or plasma calcium kenny urement (mass/volume)Ordered By: Jacob James on 07-21-2023 Calcium [Mass/Vol] 9.0 mg/dL 8.5-10.1 [facility] Serum or plasma creatinine m easurement (mass/volume)Ordered By: Jacob James on 07-21-2023 Creatinine [Mass/Vol] 0.88 mg/dL 0.70-1.30 [facility] Comment on above: The validity of the calculated GFR & GFRAA in patients over 70 years has not been determined. Clinical correlation is essential. Serum or plasma urea nitroge n measurement (mass/volume)Ordered By: Jacob James on 07-21-2023 Urea nitrogen [Mass/Vol] 15 mg/dL 7-18 [facility] Thin prep Papanicolaou smear with manual screeningOrdered By: Jacob James on 07-21-2023 Thin prep Papanicolaou smear with manual screening 5 - [facility] MRI CERVICAL SPINE WO/W IVCO Non 04-04-2019 MRI CERVICAL SPINE WO/W IVCON * * *Final Report* * * DATE OF EXAM: Apr 04 2019 3:10PM [facility] [id number] - MRI CERVICAL SPINE WO/W IVCON / PROCEDURE REASON: Demyelinating disease of central nervous system (HCC) * * * * Physician Interpretation * * * * EXAMINATION: MRI CERVICAL SPINE WO/W IVCON CLINICAL HISTORY: Blurred vision. Numbness and tingling in both arms. TECHNIQUE: Routine cervical spine MR protocol without and with intravenous gadolinium. Contrast: 13ML mL Dotarem IV MQ: [id number] COMPARISON: None. RESULT: Counting reference: Craniocervical junction. Anatomic Variants: None. Alignment: Alignment is anatomic. Craniocervical junction: Craniocervical junction is normal. There are areas of hyperintensity on T2 and FLAIR in the riccardo and superior medulla. Cord: The visualized cord is within normal limits of signal intensity and morphology. Bone marrow signal/fracture: No evidence of pathologic marrow infiltration. No evidence of prior fracture. Cervical soft tissues: The paraspinal soft tissues are within normal limits. C2-C3: Canal and foramina are patent. C3-C4: Canal and foramina are patent. C4-C5: Canal and foramina are patent. C5-C6: Canal and foramina are patent. C6-C7: Canal and foramina are patent. C7-T1: Canal and foramina are patent. IMPRESSION: The demyelinating plaques in the riccardo and superior medulla to show enhancement on postcontrast images. The visualized spinal cord is normal in morphology, signal and enhancement. Canal and foramina are patent. Anatomic Variant: None. Assume 7 cervical vertebrae with counting from the craniocervical junction. Drop Hammer Operator Helper: ANUSHA Transcribe Date/Time: Apr 04 2019 3:27P Dictated by : VENKATA PAGE MD This examination was interpreted and the report reviewed and electronically signed by: VENKATA PAGE MD on Apr 04 2019 3:31PM EST [id number] Normal [facility] MRI THORACIC SPINE WO/W IVCO Non 04-04-2019 MRI THORACIC SPINE WO/W IVCON * * *Final Report* * * DATE OF EXAM: Apr 04 2019 3:10PM [facility] 0326 - MRI THORACIC SPINE WO/W IVCON / PROCEDURE REASON: Demyelinating disease of central nervous system (HCC) * * * * Physician Interpretation * * * * EXAMINATION: MRI THORACIC SPINE WO/W IVCON CLINICAL HISTORY: Numbness and tingling in the upper extremities. Blurred vision and headache. TECHNIQUE: Routine thoracic spine MR protocol with and without intravenous gadolinium. Contrast: 13ML mL Dotarem IV MQ: [id number] COMPARISON: None. RESULT: Counting reference: Lumbosacral junction. For the purposes of this report, anatomic variants: Assume the first normal thoracic rib is at the T1 level. Alignment: Alignment is anatomic. Cord: The visualized cord is within normal limits of signal intensity and morphology. There is no pathologic enhancement. Bone marrow signal/fracture: No evidence of pathologic marrow infiltration. No evidence of prior fracture. Thoracic paraspinal soft tissues: The paraspinal soft tissues are within normal limits. Canal and foramina: The thoracic canal and foramina are patent. IMPRESSION: Normal MRI thoracic spine without and with contrast. No evidence of demyelinating plaques. Anatomic Thoracic/Lumbar Variant: Assume the first normal thoracic rib is at the T1 level. Drop Hammer Operator Helper: PSCBen Transcribe Date/Time: Apr 04 2019 3:29P Dictated by : VENKATA PAGE MD This examination was interpreted and the report reviewed and electronically signed by: VENKATA PAGE MD on Apr 04 2019 3:30PM EST [id number] Normal [facility] PROGRESSon 04-04-2019 Protein mass conc HNO ID: [id number] Author: Merary (Yuri Cortes Service: ? Author Type: Dairy Quality Assurance Officer Type: Progress Notes Filed: 04/04/2019 3:18 PM Note Text: Radiology Service Progress Note DATE OF SERVICE: April 04, 2019 TIME: 3:18 PM PATIENT IDENTITY VERIFICATION COMPLETED USING TWO (2) METHODS: Patient confirmed name verbally and Date of . PATIENT GENDER DATA: Male PATIENT RELEVANT IMPLANT DATA REVIEWED: Yes ALLERGIES: Reviewed and unchanged CONTRAST ALLERGY: NO. EXAM: MRI - CONTRAST TYPE: GROUP II PERIPHERAL IV DATA: Ambulatory: A peripheral IV was started in the Right antecubital site with a Angio cath: 22 gauge. RADIOLOGY DEPARTMENT: MR; Exam(s) Completed: Spine: Cervical spine and Thoracic spine SIGNATURE: RT Yovana PATIENT NAME: Anatoliy Duffy DATE: April 04, 2019 TIME: 3:18 PM Normal [facility] Angioten Con Enz,CSFon 03-26 Angioten Con Enz,CSF 0.8 U/L Normal 0.0-2.5 [facility] Comment on above: Result Comment: (NOT E) This test was developed and its performance characteristics determined by [employer]. The U.S. Food and Drug Administration has not approved or cleared this test; however, FDA clearance or approval is not currently required for clinical use. The results are not intended to be used as the sole means for clinical diagnosis or patient management decisions. Performed by [employer], [address] [place] [address] www.[employer], Lauri De La O MD, Lab. Director Performed By: #### C MICHELLE ####[employer] [id number] [place], [place] [phone] [employer]. Conv Enzon 2018 Angiotens. Conv Enz 12 U/L Normal <52 [facility] Comment on above: Result Comment: Belinda ficially low MICHELLE levels may be found for patients taking MICHELLE inhibitors or after the administration of gadolinium. This test was developed and its performance characteristics determined by [facility]'s [facility] [place] ( [facility]). It has not been cleared or approved by the FDA. [facility] is regulated under CLIA as qualified to perform high complexity testing. This test is used for clinical purposes. It should not be regarded as investigational or for research. Performed By: #### S YPHGX #### [facility] [address] [place], [place] [address] BRIEF OP NOTon 03-26-2019 BRIEF OP NOT HNO ID: [id number] Author: Haja Augustin (Pa) Service: Interventional Radiology Author Type: Physician Bank Vault Custodian Type: Brief Op Note Filed: 03/26/2019 10:15 AM Note Text: BRIEF OP NOTE LOG ID: [id number] Surgery/Procedure Date: 03/26/2019 Incision/Procedure Start Time: 9:56 AM Incision Close/Procedure End Time: 10:09 AM Surgeon(s)/Procedurali st(s) and Bank Vault Custodian(s): Haja Augustin PA-C Procedure(s): LP Anesthesia: Local Findings: OP- 15 cm H2O, access at L3-4 Estimated Blood Loss: 0 ml Specimens: 18 cc clear csf Complications: None Pre-Op/Pre-Procedure Diagnosis: neuromyelitis Post-Op/Post-Procedure Diagnosis: * No post-op diagnosis entered * SIGNATURE: Haja Augustin PA-C PATIENT NAME: Anatoliy Duffy DATE: March 26, 2019 TIME: 10:14 AM PAGER/CONTACT #: [phone] Normal [facility] CYTOLOGYon 03-26-2019 CYTOLOGY Specimen originated from [facility] Specimen #: [id number] Submitting Physician: PATY GARNICA ([id number]) SPECIMEN SUBMITTED A: CEREBROSPINAL FLUID _ FINAL DIAGNOSIS A. CEREBROSPINAL FLUID Negative for malignant cells. Oscar Gunter M.D. (Electronic Signature) _ CLINICAL DATA Torsional nystagmus and abnormal brain MRI Rule out PACKAGE WINDER lymphoma GROSS DESCRIPTION 4cc clear colorless fluid STAINS A: CEREBROSPINAL FLUID THIN PREP Non-Upholstery Department Supervisor Date of Report: 03/28/2019 Date of Procedure: 03/26/2019 Date of Receipt: 03/26/2019 Submitted by: PATY GARNICA ([id number]) Location: [facility] Diagnostic interpretation performed at [place] [address]. CLIA Number: [id number] Normal [facility] Cell Count/Diff CSFon 2018 Clarity Nom (U) Clear Normal Clear [facility] Comment on above: Performed By: #### S YPHGX #### [place] [address] Color Nom (U) Colorless Normal Colorless [facility] Comment on above: Performed By: #### S YPHGX #### [address] [place] [address] CSF Comment Test Not Indicated Normal [facility] Comment on above: Performed By: #### S YPHGX #### [facility] [address] [place], [place] [address] CSF Review Test Not Indicated Normal [facility] Comment on above: Performed By: #### S YPHGX #### [facility] [address] [place] [address] Lymphocytes/100 WBC (Bld) 74 % Normal 50-90 [facility] Comment on above: Performed By: #### S YPHGX #### [facility] [address] [place] [address] Macro% 1 % Normal [facility] Comment on above: Performed By: #### S YPHGX #### [facility] [address] [place] [phone] Monocytes/100 WBC (Bld) 24 % Normal 10-50 [facility] Comment on above: Performed By: #### S YPHGX #### [facility] [address] [place] [phone] Neutrophils/100 WBC (Bld) 1 % Normal 0-3 [facility] Comment on above: Performed By: #### S YPHGX #### [facility] [address] [place] [id number] Nucleated Cells, CSF 0 /uL Normal 0-5 [facility] Comment on above: Performed By: #### S YPHGX #### [facility] [address] [place] [phone] RBC #/vol (Bld) 0 10*6/uL Normal 0-5 [facility] Comment on above: Performed By: #### S YPHGX #### [facility] [address] [place] [address] Slide Number CSF [id number] Normal [facility] Comment on above: Performed By: #### S YPHGX #### [facility] [address] [place] [phone] Suprntnt Clarity Test Not Indicated Critically abnormal Clear [facility] Comment on above: Performed By: #### S YPHGX #### [facility] [address] [place] [phone] Suprntnt Color Test Not Indicated Critically abnormal Colorless [facility] Comment on above: Performed By: #### S YPHGX #### [facility] [address] [place] [phone] Ceruloplasminon 03-26-2019 Ceruloplasmin 25 mg/dL Normal 15-30 [facility] Comment on above: Performed By: #### C AUGUSTA, COPPER, TOXMG ####[address] [phone]#### MOGFAC #### [facility] [place], [place] [phone] Copperon 03-26-2019 Copper 109 ug/dL Normal 70-140 [facility] Comment on above: Result Comment: This test was developed and its performance characteristics determined by [facility]'s [facility] Pathology and Laboratory Medicine [place] ([facility]). It has not been cleared or approved by the FDA. [facility] is regulated under CLIA as qualified to perform high complexity testing. This test is used for clinical purposes. It should not be regarded as investigational or for research. Performed By: #### C ERULO, COPPER, TOXMG ####[address] [phone]#### MOGFAC #### [facility] [place], [place] [phone] HIV 12 Combo (Ag/Ab)on 03-26 HIV 12 Ag/Ab Non Reactive Normal Non Reactive [facility] Comment on above: Performed By: #### S YPHGX #### [facility] [address] [place], [place] [address] HIV Interpretation Negative Normal [facility] Comment on above: Result Comment: No e vidence of HIV-1 or HIV-2 infection. Should recent infection be suspected, repeat testing may be considered 2-3 weeks after this draw. HIV Information: [place] Rev. Code 3701.243(E): This information has been disclosed to you from confidential records protected from disclosure by state law. You shall make no further disclosure of this information without the specific, written, and informed release of the individual to whom it pertains or as otherwise permitted by state law. A general authorization for the release of medical or other information is not sufficient for the purpose of the release of HIV test results or diagnoses. Performed By: #### S YPHGX #### [place] [address] [place], [place] [address] HIV-1/2 Antibody Test Not Indicated Normal [facility] Comment on above: Performed By: #### S YPHGX #### [place] [address] [place], [place] [address] IR LP FOR DRAINAGE (PRESSURE )on 03-26-2019 IR LP FOR DRAINAGE (PRESSURE) * * *Final Report* * * DATE OF EXAM: Mar 26 2019 11:11AM NDA 0853 - IR LP FOR DRAINAGE (PRESSURE) / PROCEDURE REASON: Diplopia Evaluation * * * * Physician Interpretation * * * * PROCEDURE: Diagnostic Lumbar Puncture Under Fluoroscopic Guidance HISTORY: The patient is a 23 years year old Male who presented with possible neuromyelitis. Consent: The risks, benefits, treatment options, potential complications, equipment, and personnel to be involved were discussed (including the risks of radiation exposure, contrast and anesthesia administration) with the patient. All of his questions were answered and consent was obtained. The patient indicated he was willing to proceed. General: A) Medication Reconciliation: The patient's medications and allergies were reviewed in the electronic medical record and reconciled to the proposed procedure/treatment. B) Pre-Procedure Medications: Medication #1: None C) Positioning: The patient was placed Prone on the fluoroscopy table. D) The Lumbar dorsal soft tissues. were then sterile prepped and draped. E) Time Out: A time out was performed immediately prior to procedure start with the nursing, anesthesia and interventional team, correctly identifying the name, medical record number, procedure, anatomy (including marking of site and side), patient position, procedure consent form, relevant diagnostic and radiology test results, antibiotic administration, safety precautions, and procedure-specific equipment needs. Timeout Affirmation (if attending not present): Haja Augustin PA-C Timeout Time and Procedure Start Time: 0956 F) Anesthesia Type: administration of local anesthesia. Local anesthesia: 1 % lidocaine Estimated Infiltration: 5 cc G) Anesthesia Was Administered For A Total Of None. H) Patient Monitoring: Not applicable. TECHNIQUE/RESULT: A) Access Site: 20 gauge spinal needle from a left paramedian approach at the L3-L4 level. B) Counting reference: Lumbosacral junction. For the purposes of this report, L4-5 is considered the level of the iliac crest. C) Procedure Details: Using sterile procedure, local anesthesia was introduced to the skin and subcutaneous tissues as outlined above. Diagnostic LP Details: Under fluoroscopic guidance, the needle was carefully advanced into the lumbar subarachnoid space resulting in free flow of CSF. 0 ml of Intrathecal contrast was administered. Diagnostic Volume: 18 cc of CSF was withdrawn and forwarded to the lab for analysis. Opening pressure was recorded at 15 cm H2O CSF Color: Clear Fluoroscopic Radiation Summary: Fluoroscopic guidance was performed in conjunction with the engineering technician. Plane A, Air Kerma: 1.7 mGy Dose Area Product (DAP): 387.1 mGy*cm2 Fluoro time: 0:03 min:sec Post-Procedure: Conclusion: The patient was transferred to the Radiology Recovery Room in stable condition and observed for approximately 60 minutes. Immediate Complications: None. Delayed Complications (will be reported as an addendum to the original report): None apparent at this time Procedure End Time and Sign Out Time: 1009 IMPRESSION: TECHNICALLY SUCCESSFUL DIAGNOSTIC LUMBAR PUNCTURE. Attending Physician: n/a Bank Vault Custodian: Haja Augustin PA-C The procedure was performed by the: Haja Augustin PA-C The attending radiologist performed the following procedural activities: none Drop Hammer Operator Helper: ANUSHA Transcribe Date/Time: Mar 26 2019 3:01P Dictated by : GRECIA MATHIS This examination was interpreted and the report reviewed and electronically signed by: GRECIA MATHIS on Mar 26 2019 3:03PM EST Normal [facility] IgG CSF Indexon 03-26-2019 Albumin CSF 23.9 mg/dL Normal 9.3-31.3 [facility] Comment on above: Performed By: #### S YPHGX #### [facility] [employer] [address] [place] [phone] Albumin mass conc 4860 mg/dL High 4614-1847 [facility] Comment on above: Performed By: #### S YPHGX #### [facility] [employer] [address] [place] [phone] PACKAGE W[employer] IGG Synthesis 2.3 mg/day Normal 0-3.0 [facility] Comment on above: Performed By: #### S YPHGX #### [facility] [employer] [address] [place] [phone] IGG Index 0.60 Normal 0-0.61 [facility] Comment on above: Performed By: #### S YPHGX #### [facility] [employer] [address] [address] IgG/Albumin Ratio 0.11 Normal 0.06-0.17 [facility] Comment on above: Performed By: #### S YPHGX #### [facility] [employer] [address] [phone] Immunoglobulin G CSF 2.6 mg/dL Normal 0.6-4.2 [facility] Comment on above: Performed By: #### S YPHGX #### [facility] [employer] [address] [place] [address] Serum IgG 881 mg/dL Normal 717-1411 [facility] Comment on above: Performed By: #### S YPHGX #### [facility] [employer] [address] [place] [phone] Lyme ABS CSFon 03-26-2019 Lyme Abs Total, CSF 0.03 MIRANDA Normal <=0.99 [facility] Comment on above: Result Comment: (NOT E) INTERPRETIVE INFORMATION: Borrelia burgdorferi Abs, RAPHAEL, CSF 0.99 MIRANDA or less: ......... Negative - Antibody to B. burgdorferi not detected. 1.00 - 1.20 MIRANDA ........... Equivocal - Repeat testing in 10-14 days may be helpful. 1.21 MIRANDA or greater: ...... Positive - Probable presence of antibody to B. burgdorferi detected. The detection of antibodies to B. burgdorferi in cerebrospinal fluid may indicate central nervous system infection. However, consideration must be given to possible contamination by blood or transfer of serum antibodies across the blood-brain barrier. Current CDC recommendations for the serologic diagnosis of Lyme disease are to screen with a polyvalent RAPHAEL test and confirm equivocal and positive results with immunoblot. Both IgM and IgG immunoblots should be performed on samples less than 4 weeks after appearance of erythema migrans. Only IgG immunoblot should be performed on samples greater than 4 weeks after the disease onset. IgM immunoblot in the chronic stage is not recommended and does not aid in the diagnosis of neuroborreliosis or chronic Lyme disease. Please submit requests for appropriate immunoblot testing within 10 days. Test developed and characteristics determined by [employer]. See Compliance Statement B: [facility] [facility]/CS Performed by [employer], [address] [place] [address] [id number] www.[employer], Lauri De La O MD, Lab. Director Performed By: #### B [facility] ####[employer] [place] [address] [phone] Lyme Disease by PCRon 2018 Borrelia sp. PCR NOT DETECTED Normal [facility] Comment on above: Result Comment: (NOT E) NOT DETECTED - A negative result does not rule out the presence of PCR inhibitors in the patient specimen or assay specific nucleic acid in concentrations below the level of detection by the assay. INTERPRETIVE INFORMATION: Borrelia Species DNA Detection by PCR Test developed and characteristics determined by [employer]. See Compliance Statement B: [facility] Performed by [employer], [address] [place] [id number] www.[employer], Lauri De La O MD, Lab. Director Performed By: #### L YPCR ####[employer] [address] [place], [place] [phone]. [facility] [place], [place] [phone] Specimen source Nom (Unsp spec) Cerebrospinal Fluid Normal [facility] Comment on above: Performed By: #### L YPCR ####[employer] [address] [place], [place] [phone]. Rita'S Hospital[address] [place], [place] [phone] MOG-IgG1 FACS, Serumon 03-26 MOG-IgG1 FACS Negative Normal Negative [facility] Comment on above: Result Comment: (NOT E) No informative autoantibodies were detected in this evaluation. A negative result does not preclude a diagnosis of an inflammatory PACKAGE [employer] demyelinating disorder. ADDITIONAL INFORMATION This test was developed and its performance characteristics determined by [facility] in a manner consistent with CLIA requirements. This test has not been cleared or approved by the U.S. Food and Drug Administration. Performed By: #### S YPHGX #### [facility] [address] [place], [place] [address] NURSING PROGon 03-26-2019 Protein mass conc HNO ID: [id number] Author: Gill Murcia) CASEY Mitchell Service: Radiology Author Type: Registered Nurse Type: Nursing Progress Note Filed: 03/26/2019 11:23 AM Note Text: Patient reports neck pain better with heat. bandaid remains clean, dry and intact. Discharge instructions reviewed with patient and family present. Patient discharged via wheelchair with his family. Normal [facility] Protein mass conc HNO ID: [id number] Author: Gill Murcia) CASEY Mitchell Service: Radiology Author Type: Registered Nurse Type: Nursing Progress Note Filed: 03/26/2019 10:29 AM Note Text: Patient post procedure for LP. 6/10 neck pain that he reports is from positioning during procedure. Heat pack applied to back of neck for comfort. Patient declined need for prn medication for this pain. Patient denies numbness or tingling but states that he has baseline blurred vision and sensitivity to light that was occurring prior to procedure. Normal [facility] Protein mass conc HNO ID: [id number] Author: Geena HusainRn) CASEY Martin Service: ? Author Type: Registered Nurse Type: Nursing Progress Note Filed: 03/26/2019 9:36 AM Note Text: Blood drawn from right AC for oligoclonal and tourtellotte, labeled at bedside, sent to lab. Pt tolerated well. Normal [facility] Oligoclonal Band Bld LAB ORD ER ONLYon 03-26-2019 Cholesterol in LDL mass conc See Oligoclonal Band CSF Report. Normal [facility] Comment on above: Performed By: #### O LIGOB ####[address] [phone] Oligoclonal Bandingon 2018 Oligoclonal Bands Oligoclonal bands ar e present in both the CSF and serum. However, the bands in the CSF are more numerous than those seen in the serum. This pattern is consistent with intrathecal synthesis of IgG, but a systemic immune reaction may also be present. Normal [facility] Comment on above: Performed By: #### O LIGO ####[address] [phone] Staff Review Reviewed by Catherine Hill MD. ([id number]) Normal [facility] Comment on above: Performed By: #### O LIGO ####[address] [phone] PT EDon 03-26-2019 PT ED HNO ID: [id number] Author: Valorie HusainRn) CASEY Monge Service: Radiology Author Type: Registered Nurse Type: Patient Education Filed: 03/26/2019 9:53 AM Note Text: AMBULATORY PATIENT EDUCATION TOPIC: IR LP diagnostic for labs READINESS TO LEARN COGNITIVE ABILITY: Alert and oriented MOTIVATION TO LEARN: Disinterested / avoidant, flat affect FAMILY SUPPORT: High - Very involved in pt care INSTRUCTION PROVIDED TO: Patient and family member PATIENT LEARNS BEST BY: Verbal Instruction FACTORS AFFECTING LEARNING: None PHYSICAL LIMITATIONS AFFECTING LEARNING: Other Limitations dizzy, double vision LEARNING RESPONSE 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 [address] [place], [place] [address] Tourtellotte Blood (For use with TOURT order only)on 03-26-2019 Tourtellotte Blood (For use with TOURT order only) See Tourtellotte CSF Report. Normal [facility] Comment on above: Performed By: #### T OURTB ####[address] [phone] Toxoplas.IgM,IgG Abon 2018 Toxo IgG Qual Negative Normal Negative [facility] Comment on above: Result Comment: Abse nce of detectable Toxoplasma gondii IgG antibodies. A negative result does not rule out acute infection. The test usually scores negative in infected patients during the incubation period and the early stages of infection. If exposure to Toxoplasma gondii is suspected despite a negative finding, a second sample should be collected and tested one or two weeks later. Performed By: #### C ERULO, COPPER, TOXMG ####[address] [phone]#### MOGFAC #### [address] [phone] Toxo IgM AB <3.0 Normal [facility] Comment on above: Result Comment: AU/m L values are interpreted as follows: Negative <8.0 Equivocal >=8.0 and <10.0 Positive >=10.0 The magnitude of the measured result is not indicative of the amount of antibody present. Performed By: #### C JUAN ALBERTO DERAS TOXMG ####[place] [address] [place], [place] [phone]#### MOGFAC #### [facility] [place], [place] [phone] Toxo IgM Qual Negative Normal Negative [facility] Comment on above: Result Comment: Abse nce of detectable Toxoplasma gondii IgM antibodies. If exposure to Toxoplasma gondii is suspected despite a negative finding, a second sample should be collected and tested three weeks later. Performed By: #### C JUAN ALBERTO DERAS TOXMG ####[address] [phone]#### MOGFAC #### [facility] [place], [place] [phone] Toxoplasma IgG Ab <3.0 Normal [facility] Comment on above: Result Comment: IU/m L values are interpreted as follows: Negative <7.2 Equivocal >=7.2 and <8.8 Positive >=8.8 The magnitude of the measured result is not indicative of the amount of antibody present. The concentrations of anti-Toxoplasma gondii IgG in a given specimen determined with assays from different manufacturers can vary due to differences in assay methods and reagent specificity. Performed By: #### C JUAN ALBERTO DERAS, TOXMG ####[place] [address] [place], [place] [phone]#### MOGFAC #### [facility] [place], [place] [phone] Toxoplasma Abs, CSF (Gondii) on 03-26-2019 Toxoplasma Ab, IgM <3.0 Normal <=7.9 [facility] Comment on above: Result Comment: (NOT E) Test performed on a sub-optimal sample per client request. Specimen is CSF. The reference interval does not apply. INTERPRETIVE INFORMATION: Toxoplasma Ab, IgM 7.9 AU/mL or less .... Not Detected. 8.0-9.9 AU/mL ........ Indeterminate - Repeat testing in 10-14 days may be helpful. 10.0 AU/mL or greater. Detected - Significant level of Toxoplasma gondii IgM antibody detected and may indicate a current or recent infection. However, low levels of IgM antibodies may occasionally persist for more than 12 months post-infection. This test is performed using the Dia[employer]omed[employer] vascular solution LIAISON. As suggested by the CDC, any indeterminate or detected Toxoplasma gondii IgM result should be retested in parallel with a specimen collected 1-3 weeks later. Further confirmation may be necessary using a different test from another reference laboratory specializing in toxoplasmosis testing where an IgM RAPHAEL should be ordered. Caution should be exercised in the use of IgM antibody levels in screening. Any Toxoplasma gondii IgM in patients that have also been confirmed by a second reference laboratory should be evaluated by amniocentesis and PCR testing for Toxoplasma gondii. For male and non- female patients with indeterminate or detected Toxoplasma gondii IgM results, PCR may also be useful if a specimen can be collected from an affected body site. This test should not be used for blood donor screening, associated re-entry protocols, or for screening Human Cell, Tissues and Cellular and Tissue-Based Products (HCT/P). For additional information, refer to the CDC website: www.cdc.gov/parasites/toxoplasmosis/health_professionals/index.h tml . The magnitude of the measured result is not indicative of the amount of antibody present. Performed by [employer], [address] [place], [place] [id number] www.[employer], Lauri De La O MD, Lab. Director Performed By: #### C SFTOX ####[employer] [place], [place] [phone] Toxoplasma IgG CSF <3.0 Normal [facility] Comment on above: Result Comment: (NOT E) Test performed on a sub-optimal sample per client request. Specimen is CSF. The reference interval does not apply. INTERPRETIVE INFORMATION: Toxoplasma Ab, IgG 7.1 IU/mL or less....... Not Detected 7.2-8.7 IU/mL .......... Indeterminate-Repeat testing in 10-14 days may be helpful. 8.8 IU/mL or greater ... Detected The best evidence for current infection is a significant change on two appropriately timed specimens, where both tests are done in the same laboratory at the same time. This test should not be used for blood donor screening, associated re-entry protocols, or for screening Human Cell, Tissues and Cellular and Tissue-Based Products (HCT/P). The magnitude of the measured result is not indicative of the amount of antibody present. Performed By: #### C SFTOX ####[employer] [address] [place], [place] [phone] VDRL on CSFon 03-26-2019 VDRL on CSF Non Reactive Normal Non Reactive [facility] Comment on above: Performed By: #### S YPHGX #### [facility] [address] [place], [place] [phone] Vitamin B1, plasmaon 019 Vitamin B1, plasma 5 nmol/L Normal 4-15 [facility] Comment on above: Result Comment: (NOT E) INTERPRETIVE DATA: Vitamin B1, Plasma Thiamine (vitamin B1) is reported. However, thiamine diphosphate (TDP), the biologically active form of thiamine, is not found in measurable concentrations in plasma, and is best determined in whole blood specimens. Plasma thiamine concentration reflects recent intake rather than body stores. Test developed and characteristics determined by [employer]. See Compliance Statement B: [facility]/ Performed by [employer], [address] [place] [address] www.[employer], Lauri De La O MD, Lab. Director Performed By: #### S YPHGX #### [facility] [address] [place], [place] [address] Vitamin B12on 03-26-2019 Cobalamin (Vitamin B12) mass conc 442 pg/mL Normal 232-1245 [facility] Comment on above: Performed By: #### S YPHGX #### [facility] [address] [place], [place] [phone] [place]'s DNAon 03-26-2019 Whipple's PCR Result NOT DETECTED Normal [facility] Comment on above: Result Comment: (NOT E) NOT DETECTED - A negative result does not rule out the presence of PCR inhibitors in the patient specimen or assay specific nucleic acid in concentrations below the level of detection by the assay. INTERPRETIVE INFORMATION: Tropheryma whipplei PCR Test developed and characteristics determined by [employer]. See Compliance Statement B: [facility] [facility]/ Performed by [employer], [address] [place] [address] www.[employer], Lauri De La O MD, Lab. Director Performed By: #### W HIPWB ####[employer] [place], [place] [phone] Whbriannale's specimen source EDTA PLASMA Normal [facility] Comment on above: Result Comment: Celine ected on 03/29 AT 1816: Previously reported as Blood Performed By: #### W HIPWB ####[employer] [address] [place], [place] [phone] CNOVon 03-23-2019 CNOV Office Visit (NEMSMN ) ANATOLIY DUFFY ([id number]) 1995 Date Time Provider Department 03/23/19 9:00 AM [facility] During your visit today, we recorded the following information about you: Pulse Blood pressure Weight Height 101/minute 132/72 64.2 kg 1.626 m Quinn Hernandez MD PhD 04/04/2019 4:[address] [facility]OSIS NEW PATIENT EVALUATION/CONSULTATIO N Referred by: Paty Garnica DO PRINCIPAL NEUROLOGIC DIAGNOSIS: brainstem lesion DISEASE SUMMARY Date of onset: 02/13/19 Date of diagnosis of MS: NA Disease course at onset: Monophasic Current disease course: Monophasic Previous disease therapies: NA Current disease therapy: NA Most recent MRI brain: 02/28/19 Most recent MRI cervical spine: ordered Most recent MRI thoracic spine: ordered CSF: 03/26/19 ordered JCV serology result and date: NA VZV serology result and date: NA AQP4-IgG: NA MOG-IgG: NA HISTORY OF ILLNESS: An opinion on this 23 year old right handed man was requested by the referring physician for evaluation. He was accompanied by his parents and grandmother. Previous records (physician notes, laboratory reports, and radiology reports) and imaging studies were reviewed and summarized. My recommendations will be communicated back to the patient's physician(s) via electronic medical record. Follow-up is expected to be with me at the [facility]. History was obtained predominantly from his mother. He is a fair historian and not very conversant. Since 02/03/19 he?s experienced painless intermittent blurry vision without diplopia. He reports a few days without blurry vision. 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 He has had migraines approximately once monthly since 15 year old and daily headaches since 02/03/19 characterized as sharp frontal pain with photo/phonophobia without nausea. 02/13: Went to PCP and given meclizine for vertigo 02/19: Went to ENT 02/22: Went to ED and given prednisone 20 mg for 5 days with an antibiotic for possible ear infection 02/26: Went to ENT who ordered a MRI brain 02/28: MRI brain w/o which was reported normal 03/02 went to sanitizer who referred to rufian (oracle database administrator) Since the week of 03/18/19, he?s had paresthesias in his arms and legs. Denies bladder symptoms, Uhthoff's. 03/17/19 Seen by Paty Garnica DO (neuro-ophthalmology) - He has a skew combined with a large amplitude clockwise torsional nystagmus. Suspected the brainstem signal was ?(?germinoma/dakotah-gli al) or a para-neoplastic process? or Lymphoma?. Discussed with Dr. Simba Bishop (neuro-radiology) who noted signal started in the midbrain and extends to the medulla; no clear etiology after discussing at neuroradiology conference. He discussed her with Dr. Vilma Bowles who said he could not be admitted due to insurance. 5/7/19 Paty Garnica DO - 23 y/o man with diplopia for a few weeks also has a feeling of pressure in his muscles and an ataxic gait. He has seesaw nystagmus on exam. MRI brain is abnormal with a nonenhancing, T2/FLAIR hyperintense lesion abutting the 4th ventricle from the midpons to the medulla. Concerns include inflammatory and neoplastic processes. Current Symptoms: - blurry vision -possible Lhermitte?s: when leaning backward or forward, pressure around his arms and chest PAST HISTORY: PAST MEDICAL HISTORY Diagnosis Date - Mitral valve regurgitation PAST SURGICAL HISTORY Procedure Laterality Date - APPENDECTOMY - REMOVAL OF TONSILS,<12 Y/O Transfusions: None Current Outpatient Medications: docosahexanoic acid/epa (FISH OIL ORAL) Take by mouth once daily. gabapentin (NEURONTIN) 300 mg capsule Take 1 capsule by mouth three times daily for 90 days. No current facility-administered medications for this visit. ALLERGIES No Known Allergies Social History Socioeconomic History Marital status: Single Spouse name: Not on file Number of children: Not on file Years of education: 12 Highest education level: Not on file Social Needs Financial resource strain: Not on file Food insecurity - worry: Not on file Food insecurity - inability: Not on file Transportation needs - medical: Not on file Transportation needs - non-medical: Not on file Occupational History Not on file Tobacco Use Smoking status: Never Smoker Smokeless tobacco: Current User Types: Snuff Substance and Sexual Activity Alcohol use: Yes Comment: 16oz / week; last week of 02/22/19 Drug use: Not Currently Sexual activity: Not on file Comment: not asked Other Topics Concerns: Not on file Social History Narrative Was valentin andrews the last week of January 2019. FAMILY HISTORY Problem Relation Age of Onset - Cataract Paternal Grandmother - other (fahr) Paternal Grandfather REVIEW OF SYSTEMS: Comprehensive review of systems otherwise was negative, including constitutional, head and neck, cardiovascular, pulmonary, gastrointestinal, endocrine, urologic, reproductive, rheumatic, hematologic, immunologic, dermatologic, and psychiatric. Nutritional concerns: None Driving issues: None Safety concerns regarding living situations and safety at home: None Risk of falls: None Pain: None PHYSICAL EXAM: Hair, skin, nails, and joints were normal. Neck was supple without Lhermitte's phenomenon. There was no percussion tenderness over the spine. He was alert and oriented to person, place, and time with normal language. Visual acuity to near card was as follows: OU= 20/100 (with glasses). Visual gonzalez were full to confrontation. Pupils were 3 mm and briskly reactive OU without a relative afferent pupillary defect. Funduscopic examination was normal without disc edema, erythema, or atrophy. Ocular ductions: right CNVI partial paresis, clockwise torsional nystagmus OU, bilateral ptosis. Facial sensation was normal. Muscles of mastication and facial expression moved normally. Hearing was normal. Palatal movements were normal. Sternocleidomastoid and trapezius power were normal. Tongue movements were normal. There was no dysarthria. Motor Examination: There was no pronator drift or fixation. Right Upper Extremity: Left Upper Extremity: Deltoid 5/5 Deltoid 5/5 Biceps 5/5 Biceps 5/5 Triceps 5/5 Triceps 5/5 Finger extensors 5/5 Finger extensors 5/5 Finger flexors 5/5 Finger flexors 5/5 Dorsal interossei 5/5 Dorsal interossei 5/5 Abductor pollicis 5/5 Abductor pollicis 5/5 Tone (Binh scale) 0 Tone (Binh scale) 0 Right Lower Extremity: Left Lower Extremity: Hip flexors 5/5 Hip flexors 5/5 Hip extensors 5/5 Hip extensors 5/5 Knee flexors 5/5 Knee flexors 5/5 Knee extensors 5/5 Knee extensors 5/5 Dorsiflexors 5/5 Dorsiflexors 5/5 Plantarflexors 5/5 Plantarflexors 5/5 Toe extensors 5/5 Toe extensors 5/5 Toe flexors 5/5 Toe flexors 5/5 Tone (Binh scale) 0 Tone (Binh scale) 0 Reflexes: brachioradialis ++ brachioradialis ++ biceps ++ biceps ++ triceps ++ triceps ++ patellar ++ patellar ++ Achilles ++ Achilles ++ plantar response down plantar response down Coordination testing in the arms and legs was performed including [id number]-ta-[id number], rapid-alternating, and fine movements. Rapid movements were smooth with good christie and there was no dysmetria or ataxia. No signs of cerebellar dysfunction. Sensory examination: Variable differences to pinprick over back comparing left to right. Vibration, proprioception, and temperature intact. Gait was normal, including heel, toe, and tandem walking. REVIEW OF OUTSIDE RECORDS: summarized in HPI REVIEW OF IMAGING STUDIES: I personally reviewed the following images: T2/FLAIR hyperintensity extending from the caudal midbrain to the rostral medulla along the dorsal aspect. ASSESSMENT: 23 year old man with an acute presentation of blurry vision likely due to nystagmus and his brainstem lesion. Its predilection for the cerebellar aqueduct/4th ventricle is suspicious for NMOSD. A LP is ordered for other mimics. Ordered MOG-IgG. Cord imaging is recommended to evaluate for evidence of additional lesions. PLAN: Office Visit on 03/23/19 - MRI CERVICAL SPINE WO/W IVCON - MRI THORACIC SPINE WO/W IVCON - MOG-IGG1 FACS,SERUM - COPPER BLOOD - CERULOPLASMIN BLD - TOXOPLASMA ABS CSF - TOXOPLASMOSIS IGM AND IGG AB Will discuss results by phone. For symptomatic management of nystagmus, ordered gabapentin. Memantine can also be considered. Follow-up in approximately 1 month. I spent 60 minutes in this visit, with >50% direct patient time spent counseling about prognosis, treatment options, and coordination of care. 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 No IV access, insert saline lock prior to the beginning of sedation, infusion, injection of imaging exam. Discontinue saline lock post exam. If Pt. has a central line or IVAD, may access for administration according to line specific nursing protocol. Once exam is complete flush line and de-access according to line specific nursing protocol in the MR contrast administration guidelines link.Disp: 1 EachRfl: 0 MRI THORACIC SPINE WO/W IVCON [[id number]] Order #: [id number] FUTURE [] iv contrast (will be provided with radiology test)MRI TSP Inject, intravenously, once for 1 dose. No IV access, insert saline lock prior to the beginning of sedation, infusion, injection of imaging exam. Discontinue saline lock post exam. If Pt. has a central line or IVAD, may access for administration according to line specific nursing protocol. Once exam is complete flush line and de-access according to line specific nursing protocol in the MR contrast administration guidelines link.Disp: 1 EachRfl: 0 COPPER BLOOD [SQCOPPER] Order #: [id number] FUTURE CERULOPLASMIN BLD [SQCERULO] Order #: [id number] FUTURE TOXOPLASMA ABS CSF [SQCSFTOX] Order #: [id number]. #:[id number] TOXOPLASMOSIS IGM AND IGG AB [SQTOXMG] Order #: [id number] FUTURE Prescriptions as of 03/23/2019 Sig: FISH OIL ORAL Take by mouth once daily. IV CONTRAST (RADIOLOGY PROCED* MRI CSP Inject, intravenousl* IV CONTRAST (RADIOLOGY PROCED* MRI TSP Inject, intravenousl* X GABAPENTIN 300 MG CAPSULE Take 1 capsule by mouth three* Problem List As Of Date: 03/23/2019 (None) Prescriptions ordered this encounter Disp Refills Start End IV CONTRAST (RADIOLOGY PROCEDURE) 1 Ea* 0 03/23/2019 03/24/2019 Class: In Office Sig: MRI CSP Inject, intravenously, once for 1 dose. No IV access, insert saline lock prior to the beginning of sedation, infusion, injection of imaging exam. Discontinue saline lock post exam. If Pt. has a central line or IVAD, may access for administration according to line specific nursing protocol. Once exam is complete flush line and de-access according to line specific nursing protocol in the MR contrast administration guidelines link. IV CONTRAST (RADIOLOGY PROCEDURE) 1 Ea* 0 03/23/2019 03/24/2019 Class: In Office Sig: MRI TSP Inject, intravenously, once for 1 dose. No IV access, insert saline lock prior to the beginning of sedation, infusion, injection of imaging exam. Discontinue saline lock post exam. If Pt. has a central line or IVAD, may access for administration according to line specific nursing protocol. Once exam is complete flush line and de-access according to line specific nursing protocol in the MR contrast administration guidelines link. GABAPENTIN 300 MG CAPSULE 90 c* 2 03/23/2019 03/30/2019 Route: ORAL Sig: Take 1 capsule by mouth three times daily for 90 days. Letter Text Encounter Status:Closed by QUINN HERNANDEZ MD on 03/25/19 Normal [facility] PROGRESSon 03-23-2019 Protein mass conc HNO ID: [id number] Author: Quinn Hernandez Service: ? Author Type: Physician Type: Progress Notes Filed: 04/04/2019 4:59 PM Note Text: [facility] NEW PATIENT EVALUATION/CONSULTATIO N Referred by: Paty Garnica DO PRINCIPAL NEUROLOGIC DIAGNOSIS: brainstem lesion DISEASE SUMMARY Date of onset: 02/13/19 Date of diagnosis of MS: NA Disease course at onset: Monophasic Current disease course: Monophasic Previous disease therapies: NA Current disease therapy: NA Most recent MRI brain: 02/28/19 Most recent MRI cervical spine: ordered Most recent MRI thoracic spine: ordered CSF: 03/26/19 ordered JCV serology result and date: NA VZV serology result and date: NA AQP4-IgG: NA MOG-IgG: NA HISTORY OF ILLNESS: An opinion on this 23 year old right handed man was requested by the referring physician for evaluation. He was accompanied by his parents and grandmother. Previous records (physician notes, laboratory reports, and radiology reports) and imaging studies were reviewed and summarized. My recommendations will be communicated back to the patient's physician(s) via electronic medical record. Follow-up is expected to be with me at the [facility]. History was obtained predominantly from his mother. He is a fair historian and not very conversant. Since 02/03/19 he?s experienced painless intermittent blurry vision without diplopia. He reports a few days without blurry vision. 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 He has had migraines approximately once monthly since 15 year old and daily headaches since 02/03/19 characterized as sharp frontal pain with photo/phonophobia without nausea. 02/13: Went to PCP and given meclizine for vertigo 02/19: Went to ENT 02/22: Went to ED and given prednisone 20 mg for 5 days with an antibiotic for possible ear infection 02/26: Went to ENT who ordered a MRI brain 02/28: MRI brain w/o which was reported normal 03/02 went to sanitizer who referred to rufina (oracle database administrator) Since the week of 03/18/19, he?s had paresthesias in his arms and legs. Denies bladder symptoms, Uhthoff's. 03/17/19 Seen by Paty Garnica DO (neuro-ophthalmology) - He has a skew combined with a large amplitude clockwise torsional nystagmus. Suspected the brainstem signal was ?(?germinoma/dakotah-gli al) or a para-neoplastic process? or Lymphoma?. Discussed with Dr. Simba Bishop (neuro-radiology) who noted signal started in the midbrain and extends to the medulla; no clear etiology after discussing at neuroradiology conference. He discussed her with Dr. Vilma Bowles who said he could not be admitted due to insurance. 03/20/19 Paty Garnica DO - 23 y/o man with diplopia for a few weeks also has a feeling of pressure in his muscles and an ataxic gait. He has seesaw nystagmus on exam. MRI brain is abnormal with a nonenhancing, T2/FLAIR hyperintense lesion abutting the 4th ventricle from the midpons to the medulla. Concerns include inflammatory and neoplastic processes. Current Symptoms: - blurry vision -possible Lhermitte?s: when leaning backward or forward, pressure around his arms and chest PAST HISTORY: PAST MEDICAL HISTORY Diagnosis Date - Mitral valve regurgitation PAST SURGICAL HISTORY Procedure Laterality Date - APPENDECTOMY - REMOVAL OF TONSILS,<12 Y/O Transfusions: None Current Outpatient Medications: docosahexanoic acid/epa (FISH OIL ORAL) Take by mouth once daily. gabapentin (NEURONTIN) 300 mg capsule Take 1 capsule by mouth three times daily for 90 days. No current facility-administered medications for this visit. ALLERGIES No Known Allergies Social History Socioeconomic History Marital status: Single Spouse name: Not on file Number of children: Not on file Years of education: 12 Highest education level: Not on file Social Needs Financial resource strain: Not on file Food insecurity - worry: Not on file Food insecurity - inability: Not on file Transportation needs - medical: Not on file Transportation needs - non-medical: Not on file Occupational History Not on file Tobacco Use Smoking status: Never Smoker Smokeless tobacco: Current User Types: Snuff Substance and Sexual Activity Alcohol use: Yes Comment: 16oz / week; last week of 02/22/19 Drug use: Not Currently Sexual activity: Not on file Comment: not asked Other Topics Concerns: Not on file 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 FAMILY HISTORY Problem Relation Age of Onset - Cataract Paternal Grandmother - other (fahr) Paternal Grandfather REVIEW OF SYSTEMS: Comprehensive review of systems otherwise was negative, including constitutional, head and neck, cardiovascular, pulmonary, gastrointestinal, endocrine, urologic, reproductive, rheumatic, hematologic, immunologic, dermatologic, and psychiatric. Nutritional concerns: None Driving issues: None Safety concerns regarding living situations and safety at home: None Risk of falls: None Pain: None PHYSICAL EXAM: Hair, skin, nails, and joints were normal. Neck was supple without Lhermitte's phenomenon. There was no percussion tenderness over the spine. He was alert and oriented to person, place, and time with normal language. Visual acuity to near card was as follows: OU= 20/100 (with glasses). Visual gonzalez were full to confrontation. Pupils were 3 mm and briskly reactive OU without a relative afferent pupillary defect. Funduscopic examination was normal without disc edema, erythema, or atrophy. Ocular ductions: right CNVI partial paresis, clockwise torsional nystagmus OU, bilateral ptosis. Facial sensation was normal. Muscles of mastication and facial expression moved normally. Hearing was normal. Palatal movements were normal. Sternocleidomastoid and trapezius power were normal. Tongue movements were normal. There was no dysarthria. Motor Examination: There was no pronator drift or fixation. Right Upper Extremity: Left Upper Extremity: Deltoid 5/5 Deltoid 5/5 Biceps 5/5 Biceps 5/5 Triceps 5/5 Triceps 5/5 Finger extensors 5/5 Finger extensors 5/5 Finger flexors 5/5 Finger flexors 5/5 Dorsal interossei 5/5 Dorsal interossei 5/5 Abductor pollicis 5/5 Abductor pollicis 5/5 Tone (Binh scale) 0 Tone (Binh scale) 0 Right Lower Extremity: Left Lower Extremity: Hip flexors 5/5 Hip flexors 5/5 Hip extensors 5/5 Hip extensors 5/5 Knee flexors 5/5 Knee flexors 5/5 Knee extensors 5/5 Knee extensors 5/5 Dorsiflexors 5/5 Dorsiflexors 5/5 Plantarflexors 5/5 Plantarflexors 5/5 Toe extensors 5/5 Toe extensors 5/5 Toe flexors 5/5 Toe flexors 5/5 Tone (Binh scale) 0 Tone (Binh scale) 0 Reflexes: brachioradialis ++ brachioradialis ++ biceps ++ biceps ++ triceps ++ triceps ++ patellar ++ patellar ++ Achilles ++ Achilles ++ plantar response down plantar response down Coordination testing in the arms and legs was performed including [id number]-ei-wevht, rapid-alternating, and fine movements. Rapid movements were smooth with good christie and there was no dysmetria or ataxia. No signs of cerebellar dysfunction. Sensory examination: Variable differences to pinprick over back comparing left to right. Vibration, proprioception, and temperature intact. Gait was normal, including heel, toe, and tandem walking. REVIEW OF OUTSIDE RECORDS: summarized in HPI REVIEW OF IMAGING STUDIES: I personally reviewed the following images: T2/FLAIR hyperintensity extending from the caudal midbrain to the rostral medulla along the dorsal aspect. ASSESSMENT: 23 year old man with an acute presentation of blurry vision likely due to nystagmus and his brainstem lesion. Its predilection for the cerebellar aqueduct/4th ventricle is suspicious for NMOSD. A LP is ordered for other mimics. Ordered MOG-IgG. Cord imaging is recommended to evaluate for evidence of additional lesions. PLAN: Office Visit on 03/23/19 - MRI CERVICAL SPINE WO/W IVCON - MRI THORACIC SPINE WO/W IVCON - MOG-IGG1 FACS,SERUM - COPPER BLOOD - CERULOPLASMIN BLD - TOXOPLASMA ABS CSF - TOXOPLASMOSIS IGM AND IGG AB Will discuss results by phone. For symptomatic management of nystagmus, ordered gabapentin. Memantine can also be considered. Follow-up in approximately 1 month. I spent 60 minutes in this visit, with >50% direct patient time spent counseling about prognosis, treatment options, and coordination of care. Quinn Hernandez MD, PhD Associate Staff Neurologist [facility] Normal [facility] PROGRESSon 03-20-2019 Protein mass conc HNO ID: [id number] Author: Paty Goldstein Service: ? Author Type: Physician Type: Progress Notes Filed: 03/20/2019 1:25 PM Note Text: Rotary nystagmus (primary encounter diagnosis) His torsional nystagmus appears to be the same to me, but he is becoming more imbalanced and has some midline dystaxia. He feels that he is getting worse every day. His MRI was read by Simba Bishop and reveals abnormal signal in the dorsal aspect of the brainstem on both sides that seems to start in the midbrain and may go down as far as the medulla. Dr Bishop showed the scan at NR conference on TuesdayMarch 19 and no one knew what the signal abnormality seen on DWI,FLAIR and T2 represents. His paternal GF was dxed with Fahr's disease but his rapid progression of symptoms appears to be against that possibility. I am concerned that this might represent PACKAGE WINDER lymphoma and as such he should have an HIV test. I spoke to Dr Bowles who stated that he couldn't be admitted for a faster evaluation because of insurance issues, but did say that he would be evaluated in the [facility] this week. I have already ordered an lumbar puncture with cytology and perhaps it could also be done this week instead of the next wk as scheduled. Given that the MRI findings are not characteristic of any particular disorder a broad w/u will likely need to be undertaken. I've ordered some additional labs but will have neurology see him first before drawing them as they will likely add other labs as well. Imbalance I have confirmed and edited as necessary the relevant ophthalmic history, ROS, and the neuro exam findings as obtained by others. I have seen and examined this patient. I have discussed the case and the management of this patient's care with the Resident/Fellow, if applicable. I also have reviewed and agree with the assessment and plan as stated above and agree with all of its relevant components. Paty Garnica DO March 20, 2019 12:30 PM Normal [facility] NURSING PROGon 03-19-2019 Protein mass conc HNO ID: [id number] Author: Alanna (Rn) CASEY Harrison Service: ? Author Type: Registered Nurse Type: Nursing Progress Note Filed: 03/19/2019 3:42 PM Note Text: IR LP PRE PROCEDURE PHONE CALL: Contacted Anatoliy Duffy and confirmed appt. for LP with local anesthetic scheduled on 03/26/2019 at [facility]. Arrival: Arrive to [facility] Imaging Department by 0730 Please bring your Photo ID and Insurance Card. A General Consent may need to be signed. Your anticipated procedure start time will be between 0900 AND 1000. Supplier Diversity Director/Transportation: If you will be arriving at [facility] via ambulance/medical transportation or public transportation/shuttle , you still need a responsible adult to accompany you to and from the procedure and recommended to stay with you for 24 hours after the procedure. You will need a responsible ADULT to accompany you to and from the procedure. Your canal driver is required to stay with you until you are taken into the procedure room. Labs: Note: Labs are required within 90 days if patient ? 80 years old, coagulopathy, anticoagulation therapy, thrombocytopenia, liver disease, receiving chemotherapy as determined by Staff Radiologist; CBC with platelets, Coagulation Panel No labs needed per policy. Labs up to date. Labs completed on 03/23/2019 in Recovery Room Diet: This procedure is performed with local anesthetic. It is ok to eat a light meal prior to the procedure. Clothing: Wear comfortable clothing, you will not need to change into a hospital gown. Medications: Do you have any allergies? ALLERGIES No Known Allergies If ok with your Prescribing Provider: RADIOLOGY RECOMMENDS THESE MEDICATION RESTRICTIONS: None Note: Patients on DUAL antiplatelet therapy (Aspirin in addition to one of the following; clopidogrel, prasugrel, ticagrelor) need clearance from prescribing provider prior to discontinuing if there is a history of stent placement. Recovery expectations: You will be in the recovery room post procedure for a minimum of 1 hour(s). Special concerns: Can you lay on your stomach? Yes Do you have a Neulasta Onpro Device? No - If yes, Imaging Exam should be rescheduled Do you have any questions? No Insulin pumps must be removed before entering the procedure room. Teach back: Arrival time 0730 Supplier Diversity Director and Responsible Adult If you have any questions please call [phone], Neuro Interventional Radiology ___ Alanna Harrison RN Normal [facility] PROGRESSon 03-19-2019 Protein mass conc HNO ID: [id number] Author: Paty Goldstein Service: ? Author Type: Physician Type: Progress Notes Filed: 03/19/2019 7:51 AM Note Text: Syphilis IgG Qualitative Nonreactive Nonreactive Normal [facility] HOSPon 03-16-2019 HOSP Patient:Anatoliy Duffy MRN: Height:5' 4"(1.626 m) Weight:141 lb 9.6 oz (64.229 kg) Outpatient Medications as of 03/26/19: docosahexanoic acid/epa (FISH OIL ORAL) gabapentin (NEURONTIN) 300 mg capsule Admission/Clinic Administered Medications as of 03/26/19: Patient has no admission medications. Problem List: Nystagmus [H55.00] White matter abnormality on MRI of brain [R90.82] Allergies: No Known Allergies Date Verified:03/25/19 Lab Values No results within the last 30 days for the following basenames: K,HCT Progress Notes ([facility]): Quinn Hernandez MD PhD 03/25/2019 7:[address] [facility] NEW PATIENT EVALUATION/CONSULTATIO N Referred by: Paty Garnica DO PRINCIPAL NEUROLOGIC DIAGNOSIS: brainstem lesion DISEASE SUMMARY Date of onset: 02/13/19 Date of diagnosis of MS: NA Disease course at onset: Monophasic Current disease course: Monophasic Previous disease therapies: NA Current disease therapy: NA Most recent MRI brain: 02/28/19 Most recent MRI cervical spine: ordered Most recent MRI thoracic spine: ordered CSF: 03/26/19 ordered JCV serology result and date: NA VZV serology result and date: NA AQP4-IgG: NA MOG-IgG: NA HISTORY OF ILLNESS: An opinion on this 23 year old right handed man was requested by the referring physician for evaluation. He was accompanied by his parents and grandmother. Previous records (physician notes, laboratory reports, and radiology reports) and imaging studies were reviewed and summarized. My recommendations will be communicated back to the patient's physician(s) via electronic medical record. Follow-up is expected to be with me at the [facility]. History was obtained predominantly from his mother. He is a fair historian and not very conversant. Since 02/03/19 he?s experienced painless intermittent blurry vision without diplopia. He reports a few days without blurry vision. 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 He has had migraines approximately once monthly since 15 year old and daily headaches since 02/03/19 characterized as sharp frontal pain with photo/phonophobia without nausea. 02/13: Went to PCP and given meclizine for vertigo 02/19: Went to ENT 02/22: Went to ED and given prednisone 20 mg for 5 days with an antibiotic for possible ear infection 02/26: Went to ENT who ordered a MRI brain 02/28: MRI brain w/o which 03/02 went to sanitizer who referred to rufina (oracle database administrator) Since the week of 03/18/19, he?s had paresthesias in his arms and legs. Denies bladder symptoms, Uhthoff's. 03/17/19 Seen by Paty Garnica DO (neuro-ophthalmology) - He has a skew combined with a large amplitude clockwise torsional nystagmus. Suspected the brainstem signal was ?(?germinoma/dakotah-gli al) or a para-neoplastic process? or Lymphoma?. Discussed with Dr. Simba Bishop (neuro-radiology) who noted signal started in the midbrain and extends to the medulla; no clear etiology after discussing at neuroradiology conference. He discussed her with Dr. Vilma Bowles who said he could not be admitted due to insurance. 03/20/19 Paty Garnica DO - 23 y/o man with diplopia for a few weeks also has a feeling of pressure in his muscles and an ataxic gait. He has seesaw nystagmus on exam. MRI brain is abnormal with a nonenhancing, T2/FLAIR hyperintense lesion abutting the 4th ventricle from the midpons to the medulla. Concerns include inflammatory and neoplastic processes. Current Symptoms: - blurry vision -possible Lhermitte?s: when leaning backward or forward, pressure around his arms and chest PAST HISTORY: PAST MEDICAL HISTORY Diagnosis Date - Mitral valve regurgitation PAST SURGICAL HISTORY Procedure Laterality Date - APPENDECTOMY - REMOVAL OF TONSILS,<12 Y/O Transfusions: None Current Outpatient Medications: docosahexanoic acid/epa (FISH OIL ORAL) Take by mouth once daily. gabapentin (NEURONTIN) 300 mg capsule Take 1 capsule by mouth three times daily for 90 days. No current facility-administered medications for this visit. ALLERGIES No Known Allergies Social History Socioeconomic History Marital status: Single Spouse name: Not on file Number of children: Not on file Years of education: 12 Highest education level: Not on file Social Needs Financial resource strain: Not on file Food insecurity - worry: Not on file Food insecurity - inability: Not on file Transportation needs - medical: Not on file Transportation needs - non-medical: Not on file Occupational History Not on file Tobacco Use Smoking status: Never Smoker Smokeless tobacco: Current User Types: Snuff Substance and Sexual Activity Alcohol use: Yes Comment: 16oz / week; last week of 02/22/19 Drug use: Not Currently Sexual activity: Not on file Comment: not asked Other Topics Concerns: Not on file 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 FAMILY HISTORY Problem Relation Age of Onset - Cataract Paternal Grandmother - other (fahr) Paternal Grandfather REVIEW OF SYSTEMS: Comprehensive review of systems otherwise was negative, including constitutional, head and neck, cardiovascular, pulmonary, gastrointestinal, endocrine, urologic, reproductive, rheumatic, hematologic, immunologic, dermatologic, and psychiatric. Nutritional concerns: None Driving issues: None Safety concerns regarding living situations and safety at home: None Risk of falls: None Pain: None PHYSICAL EXAM: Hair, skin, nails, and joints were normal. Neck was supple without Lhermitte's phenomenon. There was no percussion tenderness over the spine. He was alert and oriented to person, place, and time with normal language. Visual acuity to near card was as follows: OU= 20/100 (with glasses). Visual gonzalez were full to confrontation. Pupils were 3 mm and briskly reactive OU without a relative afferent pupillary defect. Funduscopic examination was normal without disc edema, erythema, or atrophy. Ocular ductions: right CNVI partial paresis, clockwise torsional nystagmus OU, bilateral ptosis. Facial sensation was normal. Muscles of mastication and facial expression moved normally. Hearing was normal. Palatal movements were normal. Sternocleidomastoid and trapezius power were normal. Tongue movements were normal. There was no dysarthria. Motor Examination: There was no pronator drift or fixation. Right Upper Extremity: Left Upper Extremity: Deltoid 5/5 Deltoid 5/5 Biceps 5/5 Biceps 5/5 Triceps 5/5 Triceps 5/5 Finger extensors 5/5 Finger extensors 5/5 Finger flexors 5/5 Finger flexors 5/5 Dorsal interossei 5/5 Dorsal interossei 5/5 Abductor pollicis 5/5 Abductor pollicis 5/5 Tone (Binh scale) 0 Tone (Binh scale) 0 Right Lower Extremity: Left Lower Extremity: Hip flexors 5/5 Hip flexors 5/5 Hip extensors 5/5 Hip extensors 5/5 Knee flexors 5/5 Knee flexors 5/5 Knee extensors 5/5 Knee extensors 5/5 Dorsiflexors 5/5 Dorsiflexors 5/5 Plantarflexors 5/5 Plantarflexors 5/5 Toe extensors 5/5 Toe extensors 5/5 Toe flexors 5/5 Toe flexors 5/5 Tone (Binh scale) 0 Tone (Binh scale) 0 Reflexes: brachioradialis ++ brachioradialis ++ biceps ++ biceps ++ triceps ++ triceps ++ patellar ++ patellar ++ Achilles ++ Achilles ++ plantar response down plantar response down Coordination testing in the arms and legs was performed including fjtjz-vy-obhkn, rapid-alternating, and fine movements. Rapid movements were smooth with good christie and there was no dysmetria or ataxia. No signs of cerebellar dysfunction. Sensory examination: Variable differences to pinprick over back comparing left to right. Vibration, proprioception, and temperature intact. Gait was normal, including heel, toe, and tandem walking. REVIEW OF OUTSIDE RECORDS: summarized in HPI REVIEW OF IMAGING STUDIES: I personally reviewed the following images: T2/FLAIR hyperintensity extending from the riccardo to the rostral medulla. ASSESSMENT: 23 year old man with an acute presentation of "blurry vision" likely due to nystagmus and his brainstem lesion. 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 A LP is ordered for other mimics. Ordered MOG-IgG. Cord imaging is recommended to evaluate for evidence of additional lesions. PLAN: Office Visit on 03/23/19 - MRI CERVICAL SPINE WO/W IVCON - MRI THORACIC SPINE WO/W IVCON - MOG-IGG1 FACS,SERUM - COPPER BLOOD - CERULOPLASMIN BLD - TOXOPLASMA ABS CSF - TOXOPLASMOSIS IGM AND IGG AB Will discuss results by phone. For symptomatic management of nystagmus, ordered gabapentin. Memantine can also be considered. Follow-up in approximately 1 month. I spent 60 minutes in this visit, with >50% direct patient time spent counseling about prognosis, treatment options, and coordination of care. Quinn Hernandez MD, PhD Associate Staff Neurologist [facility] Progress Notes ([facility]): Vilma Bowles MD 03/20/2019 1:41 PM Signed 23 y/o man with diplopia for a few weeks also has a feeling of pressure in his muscles and an ataxic gait. He has seesaw nystagmus on exam. MRI brain is abnormal with a nonenhencing, T2/FLAIR hyperintense lesion abutting the 4th ventricle from the midpons to the medulla. Concerns include inflammatory and neoplastic processes. Discussed that, if work-up can be safely and quickly obtained as an outpatient, his insurance is unlikely to cover a hospital stay for an expedited evaluation. He does need a lumbar puncture and an evaluation at the [facility]. Both can likely be done this week. Expedited appointments have been requested. Will reach out to patient with appointment date/time. Vilma Bowles MD Normal [facility] NMO Aq 4 IgGon 03-16-2019 NMO Aq 4 IgG <1:10 Normal <1:10 [facility] Comment on above: Result Comment: (NOT E) Aquaporin-4 Receptor Antibody, IgG is not detected. No further testing will be performed. 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 Approximately 75 percent of patients with NMO express antibodies to the aquaporin-4 (AQP4) receptor. While the absence of AQP4 receptor antibodies does not rule out a diagnosis of NMO, presence of this antibody is diagnostic for NMO. Test developed and characteristics determined by [employer]. See Compliance Statement D: [employer] Performed by [employer], [address] [place] [id number] [email or web address], Lauri De La O MD, Lab. Director Performed By: #### N MOIFA #### [facility] [address] [place] [address] [phone] #### PARNEO #### [facility] [address] [place] [address] #### OLIGOB #### [facility] [address] [address] Oligoclonal Band Bld LAB ORD ER ONLYon 03-16-2019 Cholesterol in LDL mass conc Unable to assay. Paired CSF sample not received. Normal [facility] Comment on above: Performed By: #### N MOIFA #### [facility] [address] [place] [address] [phone] #### PARNEO #### [facility] [address] [place] [address] #### OLIGOB #### [facility] [address] [id number] PROGRESSon 03-16-2019 Protein mass conc HNO ID: [id number] Author: Paty Goldstein Service: ? 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 I don't think his MRI is normal. There appears to be increased signal in the axial FLAIR images at the level of the 4th ventricle and maybe a mass in that region with increased signal in the dorsal riccardo. Given that he had a URI in November and this problem didn't begin until a couple of wks ago, I doubt this is a post viral phenomenon. I am concerned that this is a tumor (?germinoma/dakotah-glia l) or a para-neoplastic process. The signal change doesn't look like MS to me, but I suppose that's possible as well. Will get an lumbar puncture and paraneoplastic panel. I copied the MRI and will ask Dr Bishop to review it when available on PACS. I have confirmed and edited as necessary the relevant ophthalmic history, ROS, and the neuro exam findings as obtained by others. I have seen and examined this patient. I have discussed the case and the management of this patient's care with the Resident/Fellow, if applicable. I also have reviewed and agree with the assessment and plan as stated above and agree with all of its relevant components. Paty Garnica, March 16, 2019 10:55 AM Normal [facility] Paraneoplast Autoabson 03-16 ACh Receptor Bind Ab 0.00 nmol/L Normal <=0.02 [facility] Comment on above: Result Comment: (NOT E) ADDITIONAL INFORMATION This test was developed and its performance characteristics determined by [facility] in a manner consistent with CLIA requirements. This test has not been cleared or approved by the U.S. Food and Drug Administration. Performed By: #### N MOIFA #### [facility] [address] [place] [address] [phone] #### PARNEO #### [address] [address] #### OLIGOB #### [facility] [address] [place], [place] [address] AChR Ganglionic Neur 0.00 nmol/L Normal <=0.02 [facility] Comment on above: Result Comment: (NOT E) ADDITIONAL INFORMATION This test was developed and its performance characteristics determined by [facility] in a manner consistent with CLIA requirements. This test has not been cleared or approved by the U.S. Food and Drug Administration. Performed By: #### N MOIFA #### [facility] [address] [place] [address] [phone] #### PARNEO #### [facility] [address] [place] [address] #### OLIGOB #### [facility] [address] [place], [place] [address] Amphiphysin Ab, S Negative Normal <1:240 [facility] Comment on above: Result Comment: (NOT E) ADDITIONAL INFORMATION This test was developed and its performance characteristics determined by [facility] in a manner consistent with CLIA requirements. This test has not been cleared or approved by the U.S. Food and Drug Administration. Performed By: #### N MOIFA #### [employer] [address] [place] [address] [phone] #### PARNEO #### [facility] [address] [place] [address] #### OLIGOB #### [address] [place], [place] [address] SANDRA 1, S Negative Normal <1:240 [facility] Comment on above: Performed By: #### N MOIFA #### [facility] [address] [place] [address] [phone] #### PARNEO #### [facility] [address] [place] [address] #### OLIGOB #### [facility] [address] [place], [place] [address] SANDRA 2, S Negative Normal <1:240 [facility] Comment on above: Result Comment: (NOT E) ADDITIONAL INFORMATION This test was developed and its performance characteristics determined by [facility] in a manner consistent with CLIA requirements. This test has not been cleared or approved by the U.S. Food and Drug Administration. Performed By: #### N CATELIZABETH #### [facility] [address] [place] [address] [phone] #### PARYADIRAO #### [facility] [address] [place] [address] #### OLIGOB #### [place] [address] SANDRA 3, S Negative Normal <1:240 [facility] Comment on above: Result Comment: (NOT E) ADDITIONAL INFORMATION This test was developed and its performance characteristics determined by [facility] in a manner consistent with CLIA requirements. This test has not been cleared or approved by the U.S. Food and Drug Administration. Performed By: #### N CATFA #### [facility] [address] [place] [address] [phone] #### PARNEO #### [address] [address] #### OLIGOB #### [place] [address] Anti-glial Nuc Ab 1 Negative Normal <1:240 [facility] Comment on above: Result Comment: (NOT E) ADDITIONAL INFORMATION This test was developed and its performance characteristics determined by [facility] in a manner consistent with CLIA requirements. This test has not been cleared or approved by the U.S. Food and Drug Administration. Performed By: #### N MOIFA #### [facility] [address] [place] [address] [phone] #### PARNEO #### [facility] [address] [place], [place] [address] #### OLIGOB #### [facility] [address] [address] Ca Ch Bind Ab,N Type 0.00 nmol/L Normal <=0.03 [facility] Comment on above: Result Comment: (NOT E) ADDITIONAL INFORMATION This test was developed and its performance characteristics determined by [facility] in a manner consistent with CLIA requirements. This test has not been cleared or approved by the U.S. Food and Drug Administration. Performed By: #### Mamadou DIAZ #### [facility] [facility] [address] [place] [address] [phone] #### ANNA #### [address] [address] [phone] #### OLIGOB #### [place] [phone] Ca Chn Bind Ab, P/Q 0.00 nmol/L Normal <=0.02 [facility] Comment on above: Result Comment: (NOT E) ADDITIONAL INFORMATION This test was developed and its performance characteristics determined by [facility] in a manner consistent with CLIA requirements. This test has not been cleared or approved by the U.S. Food and Drug Administration. Performed By: #### N MOIFA #### [facility] [facility] [address] [place] [address] [phone] #### PARNEO #### [address] [address] #### OLIGOB #### [place] [address] [place] [id number] CRMP 5 IgG, S Negative Normal <1:240 [facility] Comment on above: Result Comment: (NOT E) ADDITIONAL INFORMATION This test was developed and its performance characteristics determined by [facility] in a manner consistent with CLIA requirements. This test has not been cleared or approved by the U.S. Food and Drug Administration. Performed By: #### N MOIFA #### [facility] [address] [place] [address] [phone] #### PARNEO #### [address] [address] #### OLIGOB #### [place] [phone] Interpretive Comment (NOTE) Normal [facility] Comment on above: Result Comment: No i nformative autoantibodies were detected in the Paraneoplastic Evaluation. However, a negative result does not exclude neurological autoimmunity with or without associated neoplasia. Sensitivity and specificity of antibody testing are enhanced by testing both serum and CSF. Performed By: #### N MOIFA #### [facility] [address] [place] [address] [phone] #### PARNEO #### [address] [address] #### OLIGOB #### [place] [address] Neur V-G K+ Chann Ab 0.00 nmol/L Normal <=0.02 [facility] Comment on above: Result Comment: (NOT E) ADDITIONAL INFORMATION This test was developed and its performance characteristics determined by [facility] in a manner consistent with CLIA requirements. This test has not been cleared or approved by the U.S. Food and Drug Administration. Performed By: #### N MOIFA #### [facility] [address] [place] [address] [phone] #### PARNEO #### [facility] [address] [place] [address] #### OLIGOB #### [facility] [address] [address] PARNEO Reflex Tests None. Normal [facility] Comment on above: Result Comment: (NOT E) ADDITIONAL INFORMATION This test was developed and its performance characteristics determined by [facility] in a manner consistent with CLIA requirements. This test has not been cleared or approved by the U.S. Food and Drug Administration. Performed By: #### Mamadou DIAZ #### [employer] [address] [address] [phone] #### PARNEO #### [facility] [address] [place] [address] #### OLIGOB #### [facility] [address] [address] BERRY GROWER 1, S Negative Normal <1:240 [facility] Comment on above: Result Comment: (NOT E) ADDITIONAL INFORMATION This test was developed and its performance characteristics determined by [facility] in a manner consistent with CLIA requirements. This test has not been cleared or approved by the U.S. Food and Drug Administration. Performed By: #### N MOIFA #### [employer] [address] [place] [address] [phone] #### PARNEO #### [facility] [address] [place] [address] #### OLIGOB #### [facility] [address] [address] BERRY GROWER 2, S Negative Normal <1:240 [facility] Comment on above: Result Comment: (NOT E) ADDITIONAL INFORMATION This test was developed and its performance characteristics determined by [facility] in a manner consistent with CLIA requirements. This test has not been cleared or approved by the U.S. Food and Drug Administration. Performed By: #### Mamadou DIAZ #### [facility] [address] [place] [address] [phone] #### PARNEO #### [place] [address] #### OLIGOB #### [facility] [address] [id number] BERRY GROWER Tr, S Negative Normal <1:240 [facility] Comment on above: Result Comment: (NOT E) ADDITIONAL INFORMATION This test was developed and its performance characteristics determined by [facility] in a manner consistent with CLIA requirements. This test has not been cleared or approved by the U.S. Food and Drug Administration. Performed By: #### N CATFA #### [facility] [address] [place] [address] [phone] #### PARNEO #### [place] [address] #### OLIGOB #### [facility] [address] [id number] Striational Ab, S Negative Normal <1:120 [facility] Comment on above: Result Comment: (NOT E) ADDITIONAL INFORMATION This test was developed and its performance characteristics determined by [facility] in a manner consistent with CLIA requirements. This test has not been cleared or approved by the U.S. Food and Drug Administration. Performed By: #### N MOIFA #### [facility] [address] [place] [address] [phone] #### PARYADIRAO #### [facility] [address] [place] [address] #### OLIGOB #### [address] [place], [place] [address] Syphilis IgG with Confon Syphilis IgG <0.2 Normal [facility] Comment on above: Result Comment: Anti body index is interpreted as follows: Non reactive SPECIMENS <=0.8 Weak reactive SPECIMENS 0.9 to 5.9 Reactive SPECIMENS >=6.0 Performed By: #### S YPHGX #### [address] [address] Syphilis IgG, Qual Nonreactive Normal Nonreactive [facility] Comment on above: Result Comment: No s erological evidence of infection with T. pallidum. Performed By: #### S YPHGX #### [address] [place] [address] [address] MR-Brain W/WO Contrast IMPOR Ton 02-28-2019 MR-Brain W/WO Contrast IMPORT Images were obtained outside of [facility] [id number] Normal [facility] Laboratory - Chemistry and C hemistry - challengeon 02-19-2019 Albumin [Mass/Vol] 4.9 g/dL Normal 3.6 - 5.1 g/dL [facility] Albumin/Globulin [Mass ratio] 2.5 {ratio} Normal 1.0 - 2.[address] [facility] [place] [facility]diayeQinti [facility] ALP [Catalytic activity/Vol] 73 U/L Normal 40 - 115 U/L Ndiaye [facility].; [facility]ayeQinti [facility] ALT [Catalytic activity/Vol] 13 U/L Normal 9 - 46 U/L [facility], [facility].; [facility], [facility]. AST [Catalytic activity/Vol] 14 U/L Normal 10 - 40 U/L [facility].; [facility], [facility]. Bilirubin [Mass/Vol] 1.1 mg/dL Normal 0.2 - 1 .2 mg/dL [facility], [facility].; [facility], [facility]. Calcium [Mass/Vol] 9.7 mg/dL Normal 8.6 - 10. 3 mg/dL [facility], [facility].; [facility], [facility]. Chloride [Moles/Vol] 107 mmol/L Normal 98 - 11 0 mmol/L [facility], [facility].; [facility], [facility]. CO2 [Moles/Vol] 26 mmol/L Normal 20 - 32 mmol/L [facility], [facility].; [facility], [facility]. Creatinine [Mass/Vol] 1.06 mg/dL Normal 0.60 - 1.35 mg/dL [facility], [facility].; [facility], [facility]. GFR/1.73 sq M.predicted among blacks MDRD (S/P/Bld) [Vol rate/Area] 114 {ML/MIN/1.73M2} Normal [facility], [facility].; [facility], [facility]. GFR/1.73 sq M.predicted MDRD (S/P/Bld) [Vol rate/Area] 98 {ML/MIN/1.73M2} Normal [facility], [facility].; [facility], [facility]. Globulin (S) [Mass/Vol] 2.0 g/dL Normal 1.9 - 3.7 g/dL [facility], [facility].; [facility] Glucose [Mass/Vol] 76 mg/dL Normal 65 - 99 mg/dL [facility].; [facility], [facility]. Potassium [Moles/Vol] 3.8 mmol/L Normal 3.5 - 5.3 mmol/L [facility], [facility].; [facility] Protein [Mass/Vol] 6.9 g/dL Normal 6.1 - 8.1 g/dL [facility], [facility].; [facility] Sodium [Moles/Vol] 140 mmol/L Normal 135 - 146 mmol/L [facility].; [employer]. Urea nitrogen [Mass/Vol] 16 mg/dL Normal 7 - 25 mg/dL [place] [employer], [employer]. Urea nitrogen/Creatinine [Mass ratio] 15.0 mg/mg Normal 6 - 22 [facility].; [employer], [employer]. Laboratory - Hematology and Cell countson 02-19-2019 Basophils (Bld) [#/Vol] 20 {Cells}/uL Normal 0 - 200 {Cells}/uL [facility] [employer]. Basophils/100 WBC (Bld) 0 % Normal 0 - 1 % [place] [employer], [employer]. Eosinophils (Bld) [#/Vol] 310 {Cells}/uL Normal 15 - 500 {Cells}/uL [place] [employer], [employer]. Eosinophils/100 WBC (Bld) 7 % Abnormal 0 - 4 % [place] [employer]. Erythrocyte distribution width (RBC) [Ratio] 12.4 % Normal 11.0 - 15.0 % [place] [employer], [employer]. Hematocrit (Bld) [Volume fraction] 46.7 % Normal 38.5 - 50.0 % [place] [employer], [employer]. Hemoglobin (Bld) [Mass/Vol] 16.0 g/dL Normal 13.2 - 17.1 g/dL [place] [employer], [employer]. Lymphocytes (Bld) [#/Vol] 1990 {Cells}/uL Normal 850 - 3900 {Cells}/uL [employer].; [employer], [employer]. Lymphocytes/100 WBC (Bld) 43 % Normal 12 - 47 % [employer], [employer]. MCH (RBC) [Entitic mass] 31.3 pg Normal 27.0 - 33.0 PG [employer].; [employer], [employer]. MCHC (RBC) [Mass/Vol] 34.3 g/dL Normal 32.0 - 36.0 g/dL [employer], [employer] MCV (RBC) [Entitic vol] 91.3 fL Normal 80.0 - 100.0 fL [place] [employer] [place] [employer] Monocytes (Bld) [#/Vol] 490 {Cells}/uL Normal 200 - 950 {Cells}/uL [place] [employer], [employer] Monocytes/100 WBC (Bld) 10 % Normal 4 - 12 % [place] [employer] [place] [employer] Neutrophils (Bld) [#/Vol] 1840 {Cells}/uL Normal 1500 - 7800 {Cells}/uL [place] [employer], [employer] Neutrophils/100 WBC (Bld) 40 % Normal 40 - 75 % [place] [employer], [employer] Platelet mean volume (Bld) [Entitic vol] 8.1 fL Normal 7.5 - 12.5 fL [facility], [employer].; [employer], [employer] Platelets (Bld) [#/Vol] 251 10*3/uL Normal 140 - 400 10*3/uL [place] [employer].; [employer], [employer] RBC (Bld) [#/Vol] 5.12 10*6/uL Normal 4.20 - 5.8 0 10*6/uL [place] [employer], [employer] WBC (Bld) [#/Vol] 4.7 10*3/uL Normal 3.8 - 10.8 10*3/uL [place] [employer], [employer] Vital Signs Date Time Vital Sign Value Performing Clinician Facility 08-13-2025 10:45-0400 Body height 162.[address] Javier Gu MD Work Phone: [facility] 08-13-2025 10:45-0400 Body mass index (BMI) [Ratio] 32.2 kg/m2 Dr. Javier Gu MD Work Phone: [facility] 08-13-2025 10:45-0400 Body temperature 98.2 [degF] Dr. Javier Gu MD Work Phone: [facility] 08-13-2025 10:45-0400 Body weight 85.[address] Javier Gu MD Work Phone: [facility] 08-13-2025 10:45-0400 Diastolic blood pressure 79 mm[Hg] Dr. Javier Gu MD Work Phone: [facility] 08-13-2025 10:45-0400 Heart rate 96 /min Dr. Javier uG MD Work Phone: [facility] 08-13-2025 10:45-0400 Respiratory rate 15 /min Dr. Javier Gu MD Work Phone: [facility] 08-13-2025 10:45-0400 SaO2% (BldA) [Mass fraction] 98 % Dr. Javier Gu MD Work Phone: [facility] 08-13-2025 10:45-0400 Systolic blood pressure 119 mm[Hg] Dr. Javier Gu MD Work Phone: [facility] 03-11-2025 15:14-0400 Body height 165.1 cm Chasity Bennett LPN [facility], [facility].; [facility], [facility]. 03-11-2025 15:14-0400 Body mass index (BMI) [Ratio] 31.62 kg/m2 Chasity Bennett LPN [facility], [facility].; [facility], [facility]. 03-11-2025 15:14-0400 Body surface area Derived from formula 1.94 m2 Chasity Bennett LPN [facility], [facility].; [facility], [facility]. 03-11-2025 15:14-0400 Body weight 86.18 kg Chasity Bennett LPN [facility], [facility].; [facility], [facility]. 03-11-2025 15:14-0400 Diastolic blood pressure 73 mm[Hg] Chasity Bennett LPN [facility], [facility].; [facility], [facility]. Comment on above: Patient Position: Sitting; Cuff Location : Left Arm; Cuff Size: Standard 03-11-2025 15:14-0400 Heart rate 91 /min Chasity Bennett LPN [facility], [facility].; [facility]. Comment on above: Pattern: Regular 03-11-2025 15:14-0400 Systolic blood pressure 114 mm[Hg] Chasity Bennett LPN [facility], [facility].; [facility]. Comment on above: Patient Position: Sitting; Cuff Location : Left Arm; Cuff Size: Standard 01-30-2025 07:02-0400 Body height 162.[address] Javier Gu MD Work Phone: [facility] 01-30-2025 07:02-0400 Body mass index (BMI) [Ratio] 33.5 kg/m2 Dr. Javier Gu MD Work Phone: 6(016)116-412795 [place] [address] 01-30-2025 07:02-0400 Body weight 88.[address] Javier Gu MD Work Phone: 3(355)778-064995 [place] [address] 01-30-2025 07:02-0400 Diastolic blood pressure 80 mm[Hg] Dr. Javier Gu MD Work Phone: 8(376)868-671995 [place] [address] 01-30-2025 07:02-0400 Heart rate 81 /min Dr. Javier Gu MD Work Phone: 2(901)569-965295 [place] [address] 01-30-2025 07:02-0400 Respiratory rate 18 /min Dr. Javier Gu MD Work Phone: 6(418)[phone] [place] [address] 01-30-2025 07:02-0400 Systolic blood pressure 122 mm[Hg] Dr. Javier Gu MD Work Phone: 8(630)[phone] [place] [address] 12-13-2024 14:42-0500 Body height 165.1 cm Jemima Bonilla LPN [facility], [facility].; [facility], [facility] 12-13-2024 14:42-0500 Body mass index (BMI) [Ratio] 33.11 kg/m2 Jemima Bonilla CONDITIONING COACH [facility]; [facility] 12-13-2024 14:42-0500 Body surface area Derived from formula 1.97 m2 Jemima Bonilla LPN [facility]; [facility], [facility]. 12-13-2024 14:42-0500 Body weight 90.27 kg Jemima Bonilla CONDITIONING COACH [facility].; [place] [facility] [facility] 12-13-2024 14:42-0500 Diastolic blood pressure 81 mm[Hg] Jemima Bonilla [facility], [facility].; [place] [employer] [facility]. Comment on above: Patient Position: Sitting; Cuff Location : Left Arm; Cuff Size: Standard 12-13-2024 14:42-0500 Heart rate 98 /min [facility], [facility].; [place] [employer] [facility]. Comment on above: Pattern: Regular 12-13-2024 14:42-0500 Inhaled oxygen concentration 21 % [facility], [facility].; [place] [employer] [facility], [employer]. Comment on above: Room air 12-13-2024 14:42-0500 SaO2% (BldA) [Mass fraction] 98 % [facility], [facility].; [place] [employer] [facility], [employer]. 12-13-2024 14:42-0500 Systolic blood pressure 131 mm[Hg] Jemima Bonilla [facility], [facility].; [employer]. Comment on above: Patient Position: Sitting; Cuff Location : Left Arm; Cuff Size: Standard 07-31-2024 11:03-0400 Body height 165.[address] [facility] CONDITION[employer] COACH [facility], [facility].; [place] [employer] [facility], [employer]. 07-31-2024 11:03-0400 Body mass index (BMI) [Ratio] 33.61 kg/m2 Radha Mik [facility], [facility].; [place] [employer] [facility], [employer]. 07-31-2024 11:03-0400 Body surface area Derived from formula 1.[address] [employer] CONDITION[employer] [facility], [facility].; [place] [employer] [facility], [employer]. 07-31-2024 11:03-0400 Body weight 91.[address] [facility], [facility].; [place] [employer], [employer]. 07-31-2024 11:03-0400 Diastolic blood pressure 83 mm[Hg] Radha Mik [facility], [facility].; [employer]. Comment on above: Patient Position: Sitting; Cuff Location : Left Arm; Cuff Size: Large 07-31-2024 11:03-0400 Heart rate 89 /min Vilma Houser LPN [facility], Inc.; [employer], [employer]. Comment on above: Pattern: Regular 07-31-2024 11:03-0400 Systolic blood pressure 129 mm[Hg] Vilma Houser [facility].; [employer], [employer] Comment on above: Patient Position: Sitting; Cuff Location : Left Arm; Cuff Size: Large 01-30-2024 11:52-0400 Body height 165.1 cm Vilma Houser [facility].; [employer], [employer] 01-30-2024 11:52-0400 Body mass index (BMI) [Ratio] 32.28 kg/m2 Vilma Houser [facility].; [employer], [employer] 01-30-2024 11:52-0400 Body surface area Derived from formula 1.95 m2 Vilma Houser [facility].; [employer], [employer] 01-30-2024 11:52-0400 Body weight 88 kg Vilma Houser [facility].; [employer], [employer] 01-30-2024 11:52-0400 Diastolic blood pressure 83 mm[Hg] Vilma Houser CONDITIONING COACH [facility], [facility].; [employer], [employer]. Comment on above: Patient Position: Sitting; Cuff Location : Left Arm; Cuff Size: Large 01-30-2024 11:52-0400 Heart rate 94 /min Vilma Houser CONDITIONING COACH [place] [employer] [facility], [facility].; [employer], [employer]. Comment on above: Pattern: Regular 01-30-2024 11:52-0400 Systolic blood pressure 120 mm[Hg] Vilma Houser [facility] [employer] [facility], [facility].; [employer], [employer] Comment on above: Patient Position: Sitting; Cuff Location : Left Arm; Cuff Size: Large 07-21-2023 17:05-0400 Diastolic blood pressure 78 mm[Hg] [facility] 07-21-2023 17:05-0400 Heart rate 91 /min [facility] 07-21-2023 17:05-0400 Respiratory rate 19 /min [facility] 07-21-2023 17:05-0400 SaO2% (BldA) [Mass fraction] 96 % [facility] 07-21-2023 17:05-0400 Systolic blood pressure 138 mm[Hg] [facility] 07-21-2023 13:57-0400 Body height 162.56 cm [facility] 07-21-2023 13:57-0400 Body mass index (BMI) [Ratio] 33.5 kg/m2 [facility] 07-21-2023 13:57-0400 Body temperature 96.8 [degF] [facility] 07-21-2023 13:57-0400 Body weight 88.45 kg [facility] 07-12-2023 11:57-0400 Body height 165.1 cm Vilma Houser LPN [facility], [facility].; [employer] [facility], [employer]. 07-12-2023 11:57-0400 Body mass index (BMI) [Ratio] 33.11 kg/m2 Vilma Houser LPN [facility], [facility].; [facility], [facility]. 07-12-2023 11:57-0400 Body surface area Derived from formula 1.97 m2 Vilma Houser LPN [facility], [facility].; [employer] [facility], [facility] 07-12-2023 11:57-0400 Body weight 90.27 kg Vilma Houser LPN [facility], [facility].; [facility] [facility] 07-12-2023 11:57-0400 Diastolic blood pressure 81 mm[Hg] Vilma Houser LPN [facility], [facility].; [employer] [facility], [employer]. Comment on above: Patient Position: Sitting; Cuff Location : Left Arm; Cuff Size: Large 07-12-2023 11:57-0400 Heart rate 92 /min Vilma Houser LPN [facility], [facility].; [employer], [employer]. Comment on above: Pattern: Regular 07-12-2023 11:57-0400 Systolic blood pressure 140 mm[Hg] Vilma Houser LPN [employer].; [employer]. Comment on above: Patient Position: Sitting; Cuff Location : Left Arm; Cuff Size: Large 05-31-2022 15:50-0400 Body height 165.1 cm Magdalena Quintero [facility], [employer].; [employer], [employer] 05-31-2022 15:50-0400 Body mass index (BMI) [Ratio] 31.45 kg/m2 Magdalena [facility]intero [facility].; [employer], [employer] 05-31-2022 15:50-0400 Body surface area Derived from formula 1.93 m2 Magdalena Quintero [facility] [employer].; [employer], [employer]. 05-31-2022 15:50-0400 Body weight 85.73 kg Magdalena Quintero [facility] [employer].; [employer], [employer]. 05-31-2022 15:50-0400 Diastolic blood pressure 75 mm[Hg] Magdalena Quintero [facility] [employer].; [employer], [employer] Comment on above: Patient Position: Sitting; Cuff Location : Right Arm; Cuff Size: Standard 05-31-2022 15:50-0400 Heart rate 112 /min Magdalena Quintero [facility] [employer].; [employer] Comment on above: Pattern: Regular 05-31-2022 15:50-0400 Systolic blood pressure 128 mm[Hg] Magdalena Quintero [facility] [employer].; [employer], [employer] Comment on above: Patient Position: Sitting; Cuff Location : Right Arm; Cuff Size: Standard 02-19-2019 10:32-0400 Body height 165.1 cm Javier Gu MD Work Phone: [employer].; [employer]. 02-19-2019 10:32-0400 Body mass index (BMI) [Ratio] 24.3 kg/m2 Javier Gu MD Work Phone: [employer].; [employer] 02-19-2019 10:32-0400 Body surface area Derived from formula 1.73 m2 Javier Gu MD Work Phone: [employer].; [employer]. 02-19-2019 10:32-0400 Body temperature 96.9 [degF] Javier Gu MD Work Phone: [employer].; [employer]. Comment on above: Method: Tympanic 02-19-2019 10:32-0400 Body weight 66.23 kg Javier Gu MD Work Phone: [employer].; [employer]. 02-19-2019 10:32-0400 Diastolic blood pressure 67 mm[Hg] Javier Gu MD Work Phone: [employer].; [employer]. Comment on above: Patient Position: Sitting; Cuff Location : Left Arm; Cuff Size: Standard 02-19-2019 10:32-0400 Heart rate 92 /min Javier Gu MD Work Phone: [employer].; [employer]. Comment on above: Pattern: Regular 02-19-2019 10:32-0400 Systolic blood pressure 103 mm[Hg] Javier Gu MD Work Phone: [employer].; [employer]. Comment on above: Patient Position: Sitting; Cuff Location : Left Arm; Cuff Size: Standard 01-06-2018 13:33-0500 Body height 165.1 cm Elvi Matthew LPN [employer].; [employer]. 01-06-2018 13:33-0500 Body mass index (BMI) [Ratio] 25.29 kg/m2 Elvi Matthew LPN [employer], [employer].; [employer]. 01-06-2018 13:33-0500 Body surface area Derived from formula 1.76 m2 Elvi Matthew LPN [employer], [employer].; [employer]. 01-06-2018 13:33-0500 Body temperature 97.5 [degF] Elvi Matthew LPN [employer], [employer].; [employer]. 01-06-2018 13:33-0500 Body weight 68.95 kg Elvi Matthew LPN [employer].; [facility]. 01-06-2018 13:33-0500 Diastolic blood pressure 72 mm[Hg] Elvi Matthew MADIHA [facility], [facility].; [facility] [facility]. Comment on above: Patient Position: Sitting; Cuff Location : Left Arm; Cuff Size: Standard 01-06-2018 13:33-0500 Heart rate 81 /min Elvi Mtathew CONDITIONING COACH [facility], [facility].; [employer]. Comment on above: Pattern: Regular 01-06-2018 13:33-0500 Inhaled oxygen concentration 20 % Elvi Adebayo Matthew LPN [facility], [facility].; [employer], [employer]. Comment on above: Room air 01-06-2018 13:33-0500 Inhaled oxygen concentration 21 % Elvi Matthew CONDITIONING COACH [facility], [facility].; [employer], [employer]. Comment on above: Room air 01-06-2018 13:33-0500 SaO2% (BldA) [Mass fraction] 99 % Elvi E Vipul CONDITIONING COACH [facility], Inc.; [employer], [employer]. 01-06-2018 13:33-0500 Systolic blood pressure 122 mm[Hg] Elvi Matthew MADIHA [facility], Inc.; [employer], [employer]. Comment on above: Patient Position: Sitting; Cuff Location : Left Arm; Cuff Size: Standard 07-17-2013 11:190400 Body height 163.83 cm Vilma Houser [facility].; [employer]. 07-17-2013 11:19-0400 Body mass index (BMI) [Percentile] Per age and sex 48 % [facility].; [employer], [employer]. 07-17-2013 11:19-0400 Body mass index (BMI) [Ratio] 21.46 kg/m2 [facility], [facility].; [employer], [employer]. 07-17-2013 11:19-0400 Body surface area Derived from formula 1.62 m2 [facility], [employer].; [employer]. 07-17-2013 11:19-0400 Body temperature 96.2 [degF] Vilma Houser [facility] [employer].; [employer]. Comment on above: Method: Tympanic 07-17-2013 11:19-0400 Body weight 57.61 kg Vilma Houser [facility] [employer].; [employer] 05-11-2013 14:56-0400 Body height 162.56 cm Javier Gu MD Work Phone: [employer].; [employer]. 05-11-2013 14:56-0400 Body mass index (BMI) [Percentile] Per age and sex 42 % Javier Gu MD Work Phone: [employer].; [employer]. 05-11-2013 14:56-0400 Body mass index (BMI) [Ratio] 20.94 kg/m2 Javier Gu MD Work Phone: [employer].; [employer]. 05-11-2013 14:56-0400 Body surface area Derived from formula 1.59 m2 Javier Gu MD Work Phone: [employer].; [employer]. 05-11-2013 14:56-0400 Body temperature 98 [degF] Javier Gu MD Work Phone: [employer].; [employer]. Comment on above: Method: Tympanic 05-11-2013 14:56-0400 Body weight 55.34 kg Javier Gu MD Work Phone: [employer].; [employer]. 05-11-2013 14:56-0400 Diastolic blood pressure 57 mm[Hg] Javier Gu MD Work Phone: [employer].; [employer]. Comment on above: Patient Position: Sitting; Cuff Location : Right Arm; Cuff Size: Standard 05-11-2013 14:56-0400 Heart rate 94 /min Javier Gu MD Work Phone: [employer]; [employer]. Comment on above: Pattern: Regular 05-11-2013 14:56-0400 Systolic blood pressure 113 mm[Hg] Javier Gu MD Work Phone: [place] [employer] [facility].; [employer]. Comment on above: Patient Position: Sitting; Cuff Location : Right Arm; Cuff Size: Standard 01-29-2013 12:47-0400 Body height 162.56 cm Elvi Matthew LPN [facility], Inc.; [employer]. 01-29-2013 12:47-0400 Body mass index (BMI) [Percentile] Per age and sex 40 % Elvi Adebayo [facility] [employer] [facility], Inc.; [employer]. 01-29-2013 12:47-0400 Body mass index (BMI) [Ratio] 20.6 kg/m2 Elvi Matthew CONDITIONING COACH [place] [employer] [facility], Inc.; [employer]. 01-29-2013 12:47-0400 Body surface area Derived from formula 1.57 m2 Elvi Matthew LPN [place] [employer] [facility], Inc.; [employer]. 01-29-2013 12:47-0400 Body temperature 97.7 [degF] Elvi Fiore [employer] [facility] [employer] [facility], Inc.; [employer], [employer]. 01-29-2013 12:47-0400 Body weight 54.43 kg Elvi Adebayo [employer]ip[employer] CONDITIONING COACH [place] [employer] [facility], Inc.; [employer], [employer]. 04-04-2012 14:59-0400 Body height 162.56 cm RadhaMindy Houser CONDITIONING COACH [place] [employer] [facility], Inc.; [employer]. 04-04-2012 14:59-0400 Body mass index (BMI) [Percentile] Per age and sex 68 % RadhaMindy Houser CONDITIONING COACH [employer] [facility], Inc.; [employer]. 04-04-2012 14:59-0400 Body mass index (BMI) [Ratio] 22.14 kg/m2 Vilma Houser CONDITIONING COACH [place] [employer] [facility], Inc.; [employer]. 04-04-2012 14:59-0400 Body surface area Derived from formula 1.62 m2 Vilma Houser [facility] [employer].; [employer]. 04-04-2012 14:59-0400 Body temperature 98.2 [degF] Vilma [facility]er [facility].; [employer]. Comment on above: Method: Tympanic 04-04-2012 14:59-0400 Body weight 58.51 kg Vilma Houser CONDITIONING COACH [employer].; [employer]. Encounters Encounter Date Encounter Type Care Provider Facility Start: 08-27-2025 End: 08-27-2025 ambulatory [facility] Facility:[facility] Start: 08-13-2025 End: 08-13-[address] Pierre Ponce MD -[facility] Work Phone: Start: 08-13-2025 End: 08-13-[address] Javier Gu MD Work Phone: -[facility] Start: 06-27-2025 ambulatory JAVIER GU Fac ility:[facility] Start: 06-27-2025 End: 06-27-2025 Subsequent hospital visit by physician Mri 2 [facility] (I-Stat/Lg Bore/1.5t) [facility] Comment on above: Palpitations [R00.2] Start: 06-12-2025 End: 06-12-2025 Patient encounter procedure Dagoberto Dubose [facility] Work Phone: Start: 06-12-2025 End: 06-12-[address] Javier Gu MD Work Phone: [facility] Start: 05-30-2025 End: 05-30-2025 Telephone encounter Cee Gibson RT(R) [facility] Start: 03-11-2025 End: 03-11-2025 Office outpatient visit 15 minutes Javier Gu MD Work Phone: [employer]. Start: 03-11-2025 Review Javier Gu MD Work Phone: [employer]. Start: 02-11-2025 End: 02-11-2025 Medication Javier Gu MD Work Phone: [employer]. Start: 02-07-[address] Leila Coon MD -[facility] Work Phone: Start: 02-07-2025 ambulatory Leila Jaymie Facility:[facility] Start: 02-06-2025 ambulatory Leila Jaymie Facility:[facility] Start: 01-30-2025 End: 01-30-[address] Javier Gu MD Work Phone: [facility] Work Phone: Start: 01-30-2025 End: 01-30-[address] Leila Coon MD -Laboratory Work Phone: Start: 01-30-2025 End: 01-30-[address] Leila Coon MD -[facility] Work Phone: Start: 01-30-2025 End: 01-30-2025 ambulatory Leila Jyamie Facility:[facility] Start: 01-30-2025 End: 01-30-2025 ambulatory Leila Jaymie Facility:[facility] Start: 12-21-2024 ambulatory [facility] Start: 12-20-2024 End: 12-20-2024 Orders Javier Gu MD Work Phone: [employer] Start: 12-19-2024 End: 12-19-2024 [facility] Start: 12-13-2024 End: 12-13-2024 Office outpatient visit 25 minutes Javier Gu MD Work Phone: [employer]. Start: 12-13-2024 Review Javier Gu MD Work Phone: [employer]. Start: 08-03-2024 End: 08-03-2024 ambulatory JAVIER GU [facility] Start: 07-31-2024 End: 07-31-2024 Patient encounter status Javier Gu MD Work Phone: [employer] Start: 07-31-2024 End: 07-31-2024 Periodic preventive med est patient 18-39 yrs Javier Gu MD Work Phone: [employer]. Start: 02-27-2024 End: 02-27-2024 ambulatory [facility] Work Phone: Start: 02-27-2024 End: 02-27-2024 Patient encounter procedure [facility]-Sleep Lab Work Phone: Start: 02-16-2024 End: 02-16-2024 Orders Javier Gu MD Work Phone: [employer] Start: 01-30-2024 End: 01-30-2024 Office outpatient visit 15 minutes Javier Gu MD Work Phone: [employer] Start: 07-28-2023 End: 07-28-2023 Telephone follow-up Javier Gu MD Work Phone: [employer] Start: 07-21-2023 End: 07-21-2023 Emergency department patient visit [facility]-Emergency Department Work Phone: Start: 07-12-2023 End: 07-12-2023 Patient encounter status Javier uG MD Work Phone: [employer]; [employer]. Start: 07-12-2023 End: 07-12-2023 Periodic preventive med est patient 18-39 yrs Javier Gu MD Work Phone: [employer]. Start: 05-31-2022 End: 05-31-2022 Patient encounter status Javier Gu MD Work Phone: [employer]; [employer]. Start: 05-31-2022 End: 05-31-2022 Periodic preventive med est patient 18-39 yrs Javier Gu MD Work Phone: [employer] Start: 06-09-2021 Physical examination [facility] Start: 02-27-2019 End: 02-27-2019 Telephone follow-up Javier Gu MD Work Phone: [employer]. Start: 02-20-2019 End: 02-20-2019 Office outpatient visit 15 minutes Javier Gu MD Work Phone: [employer]. Start: 02-19-2019 End: 02-19-2019 Office outpatient visit 15 minutes Javier Gu MD Work Phone: [employer]. Start: 02-14-2019 End: 02-14-2019 Patient encounter procedure Javier Gu MD Work Phone: [employer]. Start: 01-06-2018 End: 01-06-2018 Office outpatient visit 15 minutes Javier Gu MD Work Phone: [employer]. Start: 07-17-2013 End: 07-17-2013 Patient encounter procedure Javier Gu MD Work Phone: [employer]. Start: 05-11-2013 End: 05-12-2013 Patient encounter procedure Javier Gu MD Work Phone: [employer]. Start: 01-30-2013 End: 01-30-2013 Medication Javier Gu MD Work Phone: [employer]. Start: 01-29-2013 End: 01-29-2013 Patient encounter procedure Javier Gu MD Work Phone: [employer]. Start: 04-05-2012 End: 04-05-2012 Orders Javier Gu MD Work Phone: [employer]. Start: 04-04-2012 End: 04-04-2012 Patient encounter procedure Javier Gu MD Work Phone: [employer]. Patient encounter status Vilma [facility]illen [facility] [employer]. Patient encounter status Radha [facility] [employer] Patient encounter status Radha [facility] [employer]. Patient encounter status Jemima Bonilla [employer] Patient encounter status Brigid Jansen LPN Work Phone: [facility]. Procedures Date Procedure Procedure Detail Performing Clinician Start: 06-27-2025 Gadobutrol injection Ar galilea Coon MD Work Phone: Start: 12-13-2024 End: 12-19-2024 Ecg routine ecg w/least 12 lds w/i&r Luke E Armando PA-C Work Phone: Start: 12-13-2024 End: 12-20-2024 TTE w or wo fol wcon,Doppler Luke E Armando PA-C Work Phone: Start: 12-13-2024 End: 12-31-2024 Xtrnl pt activ ecg transmis w/r&i 30 days Luke E Armando PA-C Work Phone: Start: 07-31-2024 End: 07-31-2024 Depression screening Javier Gu MD Work Phone: Start: 07-31-2024 End: 07-31-2024 Scr dep neg, no plan reqd Javier Gu MD Work Phone: Start: 07-21-2023 Plain chest X-ray Start: 07-12-2023 End: 07-12-2023 Depression screening Javier Gu MD Work Phone: Start: 07-12-2023 End: 07-12-2023 Scr dep neg, no plan reqd Javier Gu MD Work Phone: Start: 05-31-2022 End: 05-31-2022 Depression screening Javier Gu MD Work Phone: Start: 05-31-2022 End: 05-31-2022 Scr dep neg, no plan reqd Javier Gu MD Work Phone: Start: 01-06-2018 End: 01-06-2018 Body mass index documented Javier Gu MD Work Phone: Start: 04-04-2012 End: 04-05-2012 Radiologic examination ankle 2 views Javier Gu MD Work Phone: Start: 11-14-2007 End: 11-14-2007 Appendectomy Vilma Houser LP N Start: 11-14-2004 End: 11-14-2004 Tonsillectomy Vilma Houser LP N Plan of Treatment Date Care Activity Detail Author Start: 08-13-2025 Procedure [facility] Start: 08-13-2025 Serum immunofixation [facility] Start: 08-13-2025 Vitamin B12 measurement [facility] Start: 07-15-2025 Influenza vaccination Influenza Vacc ine (#1) [facility] Start: 06-27-2025 End: 06-27-2025 Patient encounter procedure 06/27/2025 7:40 AM EDT Appointment [facility] [address] [place] [address] ORDER IN SCAN DOCS [facility] Comment on above: ORDER IN SCAN DOCS Start: 01-30-2025 Evaluation of diagno stic study results 12 Lead EKG performed by [facility] Start: 12-13-2024 Assay of thyroid stimulating hormone tsh TSH W/ REFL FREE T4 ([id number]) ([id number]) Start: 13-Dec-2024 15:04-05:00 Request [employer] Start: 12-13-2024 Comprehensive metabo lic panel CMP w/ GFR* (64708) Start: 13-Dec-2024 15:04-05:00 Request [employer] Start: 12-13-2024 Blood count complete auto&auto difrntl wbc CBC, PLATELETS & AUT DIFF (F) (30653) Start: 13-Dec-2024 15:04-05:00 Request [employer] Start: 12-13-2024 End: 12-13-2024 Ecg routine ecg w/least 12 lds w/i&r [employer] Start: 12-13-2024 TTE w or wo fol wcon,Doppler Echocardiogram, Complete with contrast per protocol if indicated ADULT ([id number]) Start: 13-Dec-2024 Intent [employer] Start: 12-13-2024 Xtrnl pt activ ecg transmis w/r&i 30 days 30 Day Cardiac Event Monitor ([id number]) Start: 13-Dec-2024 Intent [employer]. Start: 07-31-2024 Lipid panel LIPID PANEL (8 [id number]) Start: 31-Jul-2024 14:41-04:00 Request [employer]. Start: 07-15-2024 Covid-19 Vaccine () Covid-19 Vaccine () [facility] Start: 06-24-2024 Urine microalbumin profile DTaP,Tdap,Td Vaccine (8 - Td or Tdap) [facility] Start: 07-21-2023 Troponin I measurement [facility] Start: 07-21-2023 [facility] Start: 07-12-2023 Lipid panel LIPID PANEL (8 [id number]) Start: 12-Jul-2023 14:22-04:00 Request [employer]. Start: 2022 HPV Vaccine (1 - 3-d ose SCDM series) HPV Vaccine (1 - 3-dose SCDM series) [facility] Start: 2014 Hepatitis B Vaccine (1 of 3 - 19+ 3-dose series) Hepatitis B Vaccine (1 of 3 - 19+ 3-dose series) [facility] Start: 2014 Urine microalbumin profile DTaP,Tdap,Td Vaccine (1 - Tdap) [facility] Start: 2013 Anxiety Screening Anxiety Screening [facility] Start: 2013 Depression Screening Depression Scre ening [facility] Start: 2013 Hepatitis C screening Hepatitis C Ok tucker [facility] C reactive protein [Mass/volume] in Serum or Plasma [facility] Cytoplasmic ANCA Screen [facility] Erythrocyte sediment ation rate [facility] MR Brain WO and W contrast IV [facility] Patient Education ED Chest Pain, Noncardiac ED Hypertension, To Be Confirmed [facility] Work Phone: Patient referral [facility] Work Phone: [facility] Immunizations Immunization Date Immunization Notes Care Provider Elizabeth pozo 06-24-2014 tetanus toxoid, redu trixie diphtheria toxoid, and acellular pertussis vaccine, adsorbed Javier Gu MD Work Phone: [facility]; [facility] Comment on above: [facility] 01-29-2013 tetanus toxoid, redu trixie diphtheria toxoid, and acellular pertussis vaccine, adsorbed Javier Gu MD Work Phone: [facility]; [facility] Comment on above: Site: Deltoid (Left) VIS Given: * Tetanus/Diphtheria/(Pertussis) (Td/Tdap) (10/01/08) * Tetanus/Diptheria/Pertussis (Tdap/Td) 12/07/11 Payers Date Payer Category Payer Private Health Insurance [employer] [id number] 2025 Self-pay [id number] 2024 Unknown [id number] 1995 Unknown [id number] 1995 Unknown [id number] Medicaid [id number] Unknown [employer] Unknown [id number] Unknown [id number] Unknown [id number] Unknown [id number] Unknown [id number] Unknown [id number] Unknown [id number] Social History Date Type Detail Facility Start: 07-21-2023 Tobacco smoking stat [facility] Unknown if ever smoked [facility] Start: 1995 Sex Assigned At Male W [facility] Start: 03-25-2019 End: 10-22-2020 Alcohol Use Alcohol Use [employer] Tobacco/Smoke Exposure: Tobacco/ Smoke Exposure: ; None. [employer] Uses snuff [employer] Work Phone: None [employer]; [employer] Work Phone: Start: 01-24-2025 End: 08-13-2025 Tobacco smoking status TNIS Never smoked tobacco (finding) [facility] Start: 02-08-2025 Sex Male (finding) [facility] Start: 03-23-2019 Tobacco use and exposure User of smokeless tobacco [facility] Start: 03-25-2019 Alcoholic beverage intake Current drinker of alcohol (finding) [facility] Start: 03-25-2019 End: 10-22-2020 Tobacco use panel [facility] Start: 10-15-2012 National Score (1-10 0), lower number is lower risk Not on file [facility] Start: 03-23-2019 Alcohol Comment 16oz / week; l ast week of 02/22/19 [facility] Start: 1995 Sex assigned at Not on file C [facility] Mental Status Date Assessment Result Facility 07-21-2023 Cognitive function Level Of Cons ciousness Awake;Alert;Appropriate;Follow s Commands [facility] Work Phone: Clinical Notes 07-21-2023 to 08-13-2025 Mary Menezes RT(R) - 06/27/2025 7:40 AM EDT Note Date & Type Note Facility 08-13-2025 Progress note [facility] 06-27-2025 History of Present illness Narrative Radiology Service Progress Note DATE OF SERVICE: June 27, 2025 TIME: 7:48 AM PATIENT IDENTITY VERIFICATION COMPLETED USING TWO (2) STANDARD IDENTIFIERS: Name and Date of confirmed by patient verbally and Name and Date of confirmed by identification band. FALL SCREENING: Has the patient had 2 falls in the last year or 1 fall with injury or currently using an Ambulatory Assistive Device (Walker, Cane, Wheelchair, Crutches, etc.)? No PATIENT GENDER DATA: Assigned male at PATIENT RELEVANT IMPLANT DATA REVIEWED: Not Applicable PATIENT PRESENTS WITH AN IMPLANTABLE OR ATTACHED SALES REPRESENTATIVE MEATS: No ALLERGIES: Reviewed and unchanged CONTRAST ALLERGY: NO. EXAM: MRI - CONTRAST TYPE: GROUP II PERIPHERAL IV DATA: Ambulatory: A peripheral IV was started in the Right antecubital site with a Angio cath: 22 gauge. RADIOLOGY DEPARTMENT: MR; Exam(s) Completed: Cardiac: Cardiac. Aromatherapy Administered: No SIGNATURE: RT Eric(Ramona) PATIENT NAME: Anatoliy Duffy DATE: June 27, 2025 TIME: 7:48 AM documented in this encounter [facility] 06-27-2025 Note HNO ID: [id number] Author: MARY MENEZES RT(R) Service: ? Author Type: Technologist Type: Progress Notes Filed: 06/27/2025 07:49 Note Text: Radiology Service Progress Note DATE OF SERVICE: June 27, 2025 TIME: 7:48 AM PATIENT IDENTITY VERIFICATION COMPLETED USING TWO (2) STANDARD IDENTIFIERS: Name and Date of confirmed by patient verbally and Name and Date of confirmed by identification band. FALL SCREENING: Has the patient had 2 falls in the last year or 1 fall with injury or currently using an Ambulatory Assistive Device (Walker, Cane, Wheelchair, Crutches, etc.)? No PATIENT GENDER DATA: Assigned male at PATIENT RELEVANT IMPLANT DATA REVIEWED: Not Applicable PATIENT PRESENTS WITH AN IMPLANTABLE OR ATTACHED SALES REPRESENTATIVE MEATS: No ALLERGIES: Reviewed and unchanged CONTRAST ALLERGY: NO. EXAM: MRI - CONTRAST TYPE: GROUP II PERIPHERAL IV DATA: Ambulatory: A peripheral IV was started in the Right antecubital site with a Angio cath: 22 gauge. RADIOLOGY DEPARTMENT: MR; Exam(s) Completed: Cardiac: Cardiac. Aromatherapy Administered: No SIGNATURE: RT Eric(R) PATIENT NAME: Anatoliy Duffy DATE: June 27, 2025 TIME: 7:48 AM [facility] 06-12-2025 Evaluation note Diagnosis Onset Date Resolution Normal respiratory questionnaire on review acute May 10:06am Demyelinating changes in brain acute August 13, 2025 10:38am Frequent headaches acute Sept2024 10:38am [facility] Work Phone: 1(113) 211-142807-17-2025 Telephone encounter Note* Telephone Encounter - Cee Gibson RT(R) - 05/30/2025 1:13 PM EDT Please provide protocol for this patients CMR scheduled for 06/27/2025, thank you! [facility]07-17-2025 Miscellaneous Notes* Telephone Encounter - Cee Gibson RT(R) - 05/30/2025 1:13 PM EDT Please provide protocol for this patients CMR scheduled for 06/27/2025, thank you! [facility] Evaluation note* Diagnosis Onset Date Resolution Status Admit Date PVCs (premature ventricular contractions) acute January 30, 2025 9:19am Intermittent palpitations chronic January 30, 2025 9:19am [facility] Work Phone: 1(106) 226-986809-07-2023 Discharge summary Author Jacob James [facility] July 21, 2023 5:00pm Note Date/Time July 21, 2023 2:28pm [facility] Medical Records Department [address] [place] [address] Emergency Department Summary 07/21/23 MR#: [id number] Acct: [id number] Name: ANATOLIY DUFFY Rep #:[id number] : 1995 27 From: Jacob James MD PCP: Dr. Javier Gu MD Status:REG ER Location: ED HPI History of Present Illness Chief Complaint: Chest Pain Detail of Chief Complaint: Right-sided chest pain Informant: patient and spouse/S.O. 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 The pain is worse with breathing. He denies history of PE or DVT. He has no risk factors for VTE. There is no family history of cardiac disease. This pain was present prior to eating lunch. He had chicken nuggets for lunch. The pain was not madeworse with eating chicken nuggets. Patient denies cough or shortness of breath. Patient denies nausea, vomiting or diarrhea. Patient denies diaphoresis. Patient denies change in pain with change in position or movement of arms. Patient denies black or maroon-colored stool. Patient does have history of reflux. He states his pain is not like the pain he experiences with reflux. There is family history of cholelithiasis. Prior Similar Symptoms: No Recent Illness/Hospitalization: No CVD Risk Factors: Negative for Hypertension, Diabetes, Hypercholesterolemia, Family History 1' </=55 or Smoking PE Risk Factors: Negative for Recent Travel/Surgery, Recent Immobilization, Prior DVT or PE, Cancer or OCP + Smoking + >/=35 TAD Risk Factors: Negative for Marfan's Syndrome, Hypertension or Family History PFSH PFSH Medical History Benign neoplasm of brain Claustrophobia Mitral valve insufficiency Allergy/AdvReac Type Severity Reaction Status Date / Time pollen extracts Allergy Mild HEAD Verified 06/09/21 13:21 CONGESTION Surgical History Hx of appendectomy Hx of tonsillectomy Social History Smoking Status: Never smoker Smokeless tobacco user: chewing tobacco alcohol intake: never ROS ROS ED Constitutional Constitutional ED: Denies chills, fever(s), subjective, sweats or weight loss Eyes Eyes: Reports none ENT ENT ED: Denies ear pain or rhinorrhea Cardiovascular Cardiovascular: Reports as per HPI; Denies orthopnea or paroxysmal nocturnal dyspnea Respiratory/Chest Respiratory/Chest: Denies cough, dyspnea, dyspnea on exertion, orthopnea or paroxysmal nocturnal dyspnea Gastrointestinal Gastrointestinal: Denies abdominal pain, nausea or vomiting Genitourinary Genitourinary ED: Denies dysuria or hematuria Musculoskeletal Musculoskeletal: Denies arthralgias, back pain or myalgias Integumentary Denies rash Endocrine Endocrinology: Denies cold intolerance or heat intolerance EXAM Physical Exam Const Vital Signs: 07/21/23 13:57 07/21/23 14:43 07/21/23 15:42 Temperature 96.8 F L Temperature Source Temporal Pulse Rate 96 89 Respiratory Rate 15 16 Blood Pressure 146/81 H 122/82 H Blood Pressure Mean 102 95 Pulse Ox 99 99 Oxygen Delivery Method Room Air Room Air Room Air Positive well nourished and well developed General Appearance ED: well developed and NAD; Negative for pallor HEENT Reports TM's clear and moist mucous membranes HEENT Narrative: Patient has a Thayer type III fracture of tooth #9. Oral exam is otherwise unremarkable. normocephalic and atraumatic Tympanic Membrane ED: Yes TM's clear Eyes PERRL and EOMs intact bilaterally General Eye ED: Negative for pale conjunctiva or scleral icterus Neck no lymphadenopathy, supple and no JVD Resp normal respiratory effort and clear to auscultation bilaterally Cardio regular rate, regular rhythm, S1 normal heart sound, S2 normal heart sound and no murmurs Peripheral Pulses: pulses 2+ throughout GI normal to inspection, nondistended, normoactive bowel sounds, soft to palpation,non-distended, hepatosplenomegaly and no masses; Negative for non- tender GI Narrative: To deep palpation there is tenderness in the right upper quadrant. There is no hepatosplenomegaly. Negative clinic for sign. Back/Spine no CVA tenderness Extremity normal to inspection General Extremety ED: Negative for edema or pulses abnormal General Extremity: Negative for edema or pulses abnormal Neuro oriented x3, CN's II-XII intact bilaterally, no sensory deficits noted and gait normal Sensorium / Orientation: awake and alert; Negative for oriented to person Psych mental status grossly normal Skin no rashes or lesions noted and no wounds General Skin Exam: Negative for jaundice or pallor MDM MDM MDM Narrative Medical decision making narrative: Presents with right-sided chest pain. This may represent pleurisy, pneumonia, patient is PERC negative and reason D-dimer was not obtained. There is may represent GI pain from his reflux with a different quality and character. Chestpain order set was initiated per nurse protocol. Lab Data Attestation: I reviewed the patient's lab results. Lab results narrative: CBC is. Basic metabolic panel is unremarkable. First troponin is less than 3. Labs: Laboratory Results - last 24 hr 07/21/23 14:40 WBC 9.8 RBC 5.10 Hgb 15.2 Hct 44.7 MCV 87.6 MCH 29.8 MCHC 34.0 RDW Std Deviation 38.5 RDW Coeff of Saud 12.1 Plt Count 260 MPV 9.0 Immature Gran % (Auto) 0.700 Neut % (Auto) 66.3 Lymph % (Auto) 21.2 [place] % (Auto) 9.3 Eos % (Auto) 1.8 Baso % (Auto) 0.7 Absolute Neuts (auto) 6.5 Absolute Lymphs (auto) 2.07 Nucleated RBC % 0 Sodium 140 Potassium 3.8 Chloride 108 H Carbon Dioxide 27.0 Anion Gap 5 BUN 15 Creatinine 0.88 Estim Creat Clear Calc 105.58 Est GFR (MDRD) Af Amer 133 Est GFR (MDRD) Non-Af 110 BUN/Creatinine Ratio 17.0 Glucose 90 Calcium 9.0 Troponin I High Sens < 3 L Radiography Chest X-Ray - ED: 1 View and Read by ED Physician (Single view portable chest x- ray reveals no acute process. Study is limited due to the fact that inspiratoryvolume is suboptimal. Cardiac silhouette and size normal. Perihilar region normal. Lung parenchyma normal. Osseous structures are normal. This is independent reviewed interpreted by me ) Diagnostic Testing: Clinical Impression(s) from Imaging Studies Chest X-Ray 07/21/23 14:07 IMPRESSION: Normal x-ray examination of the chest. Electronically Signed: Pato Loyola MD at 15:10 EDT , EKG Initial EKG: Attestation: I personally reviewed and interpreted this EKG as follows: Interpretation: Sinus Rhythm (Rate is 94. EKG is normal. PA interval is 138 ms per cures duration 74 ms for QT duration 212 ms. [place] is normal.) Treatment and Re-Evaluation :: Patient was informed his work-up is unremarkable. He was informed the cause of his pain is unknown. He was told there is no evidence of cardiac or pulmonary disease. He was discharged home in stable condition Discharge Plan Triage Chief Complaint: Chest Pain ED Provider: Jacob James Dx/Rx/DC Orders Clinical Impression: Elevated blood pressure reading, Right-sided chest pain Instructions: ED Chest Pain, Noncardiac, ED Hypertension, To Be Confirmed Primary Care Provider: Javier Gu Referrals: Javier Gu MD [Primary Care Provider] - 3-5 Days if not improving Disposition Disposition: Home, Self Care What to do if you have Problems For any increased pain, shortness of breath, bleeding, nausea or vomiting, chestpain, or any unexpected problems, contact your Primary Care Provider. Call [facility] ([phone]) or report to the closest Emergency Room. Call 911 if necessary. 07/21/23 1700 <Electronically signed by Jacob James MD> Cosigner Signature (if applicable): CC: Dr. Javier Gu MD ~ Signed [facility] Work Phone: Evaluation noteNo assessment information available [facility] Work Phone: Progress note Author Pierre Ponce [facility] Note Date/Time August 13, 2025 11:58am [facility] [address] [place] [address], [address] [place] [address] OFFICE VISIT Date of Service: 08/13/25 MR#: [id number] Acct: [id number] Name: ANATOLIY DUFFY Rep #: [id number] : 1995 Provider: Dr. Maurizio Ponce MD Age/Sex: 29/M Location: [facility] Status: Signed HPI HPI Chief Complaint: Establish Care Details: The patient is a 29-year-old right-handed male who presents to [facility]. He was referred 03/12/[address] Javier Gu with 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 Per referral office note dated 03/11/2025 withDr. Gu, said years ago they found a spot on his brain and they never were told exactly what it was. He was previously treated by Dr. Quinn Hernandez with [facility] neurology around March of 2019 who noted: blurry vision likely due to nystagmus and his brainstem lesion. This patient is accompanied by his for evaluation. Patient has a brainstemabnormality which is currently being assessed. The brainstem abnormality has been demonstrated by MRI scanning. Patient states that in 2019 he had the onset of headache marked change in visionataxia slurring of speech and generalized weakness. He presented to ED for evaluation. MRI of the brain demonstrated what was interpreted as a normal scan. I did review the images dated 02/28/2019 from [facility]. It was reported as normal however to my eye there were changes identified in the dorsal aspect of the midbrain at the level of the fourth ventricle extending to the subthalamic regions. It is a relatively subtle finding and easy to overlook. Patient subsequently went to [facility] where a demyelinating abnormality was seen in that location. No other areas of demyelination were noted. 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 Consideration at [facility] included anti-MOG 3 antibody was also includedin the differential. I did review the MRIs from [facility] which included the cervical spine, thoracic spine and brain. The only lesion I could see where the ones commented on by the [facility] radiology group which involved demyelination in the dorsal aspect of the midbrain as described above. Patient tells me that a lumbar puncture had been performed. I cannot find a record of that. He states that he was given prednisone to take orally and he was discharged. His symptom complex apparently improved and no further action was noted. He did see a internal communications writer back doctor for a period of time and seemed to do well. Patient presents now because he has had a reemergence of headache and difficultywith vision. His difficulty with vision appears to be not loss of visual acuitybut loss of his ability to fixate on a target is in reading. It seems that he has some nystagmus which is very subtle in primary position that prevents him from fixating on vision. This problem began about 6 months ago. 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 He does not note any particular difficulty with swallowing facial sensation use of arms or legs. He has no loss of function bowel or bladder. Patient reports that he has a sister with a similar problem. His sister is taking some B vitamins and is apparently improved. Whether or not this represents a familial disorder is not clear at this point. He has 4 brothers who are apparently in good health. ROS: General: No recent flulike illnesses. HEENT: Mild 3-4 headache whole head aching at times throbbing. Problem with visual fixation. Hearing swallowing intact. No epistaxis. Respiratory: No cough or hemoptysis. Cardiac: No chest pain or palpitations Abdomen: Does not vomit blood or passed blood in stool. No abdominal discomfort. : No hematuria or difficulty with urination. Not incontinent. Extremities: Perhaps has a slight change in balance but otherwise no notable issues. Skin: No rashes or eruptions. PDMP reviewed. Exam Const Other: BP 119/79 pulse 96 respiration 15 temperature 98.2 O2 sat 98%. BMI is 32.2%. General appearance well-developed well-nourished male. HEENT: Normocephalic. Conjunctiva clear. Respiratory: Clear to auscultation Cardiac: No murmurs. (Patient had been evaluated for arrhythmia in the past which resolved during his first episode in 2019) Abdomen: Obese nondistended Extremities: No obvious trauma Skin no obvious rashes on exposed areas. Neurologic examination: Mental status: Patient is awake alert oriented x 3. Memory and language functions are normal. Hearing swallowing phonation and tongue are normal. Patient does have uncertain shyness and presentation at this time. CN II-XII: Pupils equal round reactive light 4 mm. Visual gonzalez full to confrontation. Fundi not examined. Patient's visual symptoms are not readily evident. I cannot see nystagmus in primary position. I cannot see nystagmus when he moves his eyes in any direction. Extraocular muscles appear normal. Motor and sensory function of face appears intact. Hearing swallowing phonationand tongue appear normal. Motor exam: No focal weakness is identified. No atrophy is noted. Cerebellar function: Patient is able to do finger-nose maneuvers. No cogwheeling rigidity tremor or bradykinesia noted. Reflexes: 2+ at biceps 3+ at knees. Saurabh negative. Toes sign negative. Sensory exam: Intact to tactile and vibratory sense on arms and legs. Remarkably intact considering the nature of his underlying lesion. Station gait shows that he tends to walk with the widening of his base. Rombergtesting did show wavering but he did not take a step Assessment and Plan Assessment and Plan (1) Frequent headaches: Status: Acute Comment: Patient has unusual presentation. 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 Possible related abnormality such as multiple sclerosis or anti-MOG 3 antibody has been raised. Patient was treated with steroid. This occurred in 2019. A lumbar puncture had been performed but no particular comment was made. I see in records that benign neoplasm of brain is present. I was unable to findexactly how that was documented. That could be an alternative explanation for the MRI abnormality although it seems relatively unlikely. Plan: 1. Obtain NMO and anti-MOG 3 antibodies. (NMO titer is "APQO4 antibody".) 2. Obtain repeat MRI of brain with and without contrast. (2) Demyelinating changes in brain: Status: Acute Comment: Patient had evaluation suggestive of possible demyelinating disease of brainstem. Alternative diagnoses have been offered. Thus far no if no definitive statement. Plan: 1. Continue evaluation is listed above. 2. Patient to follow-up in neurology clinic once the above testing has been completed. 3. Attempts will be made to obtain records from [facility] which may shedfurther understanding on this case. Of particular interest is the evaluation ofcerebrospinal fluid from [facility]. Orders: Orders Vitamin B12 Today G37.9 - Demyelinating disease of central nervous system, unspecified, R51.9 - Headache, unspecified [facility] Misc. Today G37.9 - Demyelinating disease of central nervous system, unspecified, R51.9 - Headache, unspecified Brain W/WO Contrast Today G37.9 - Demyelinating disease of central nervous system, unspecified, R51.9 - Headache, unspecified MAGGIE w/ Reflex Mult Confirm Today G37.9 - Demyelinating disease of central nervous system, unspecified, R51.9 - Headache, unspecified Erythrocyte Sed Rate Today G37.9 - Demyelinating disease of central nervous system, unspecified, R51.9 - Headache, unspecified CRP Today G37.9 - Demyelinating disease of central nervous system, unspecified,R51.9 - Headache, unspecified DIGNA + Protein Elect, Serum Today G37.9 - Demyelinating disease of central nervous system, unspecified, R51.9 - Headache, unspecified Medications: New lorazepam Take 30 min prior to scheduled MRI 1 mg PO ONCE 1 TAB 0RF Intake Vital Signs 01/30/25 07:02 08/13/25 10:45 Height 5 ft 4 in 5 ft 4 in Weight: 188 lb BMI 32.2 BP 119/79 Blood Pressure Location Lt brachial Position Sitting Respiration 15 Pulse 96 Pulse Source Monitor Temp 98.2 F Temp Source Temporal Pulse Oximetry (%) 98 Oxygen Delivery Method room air Intake Visit Reasons: Establish Care for brainstem malformation Chief Complaint: Establish Care Speech Assistant Required: No Accompanied by: Allergies Cephalosporins Allergy (Severe, Verified 08/13/25 10:49) Hives pollen extracts Allergy (Mild, Verified 08/13/25 10:49) HEAD CONGESTION Medications ?Medication ?Instructions ?Recorded ?Confirmed ?Type omeprazole 20 mg capsule,delayed 20 mg PO QDAY PRN 08/13/25 History release lorazepam 1 mg tablet 1 mg PO ONCE #1 TAB 08/13/25 08/13/25 Rx PFSH Medical History Vertigo Anxiety Frequent PVCs Palpitations GERD (gastroesophageal reflux disease) Current tobacco use Mitral valve insufficiency Benign neoplasm of brain Claustrophobia Surgical History Hx of appendectomy Hx of tonsillectomy Family History Sister Tachycardia Mother No problems noted. Father No problems noted. 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 pets and animals: Yes pets and animals: cat(s) and dog(s) Smoking Status: Never smoker alcohol intake: current alcohol intake frequency: holidays/special occasions only details: occasional caffeine: Yes do you feel safe at home: Yes Coding Level of Care Code New Pt Off vis,new,level 5 Patient Type New History Comprehensive Exam Comprehensive Medical Decision Making High Complexity Diagnoses Frequent headaches R51.9 Demyelinating changes in brain G37.9 08/13/25 1454 <Electronically signed by Pierre ortiz MD> Date _ Pierre Ponce MD Cosigner Signature: Date (if applicable) CC: ~ [facility] Work Phone: Reason for referral (narrative)No reason for referral information availableWMercy [facility] Work Phone: Reason for visit Narrative* Diagnostic Procedure Only (Routine) - Denied Specialty Diagnoses / Procedures Referred By Contac t Referred To Contact [facility] Diagnoses Palpitations Nonrheumatic mitral (valve) insufficiency Ventricular premature depolarization Procedures CARDIAC MRI MORPHOLOGY & FUNCTION W/O CONTRAST MRI WWO CARD [address] Leila Coon MD [address] [address] Phone: tel: fax: [facility] [address] [place] [address] Phone: tel: fax: Referral ID Status Reason Start Date Expiration Date Visits Re quested Visits Authorized [id number] Denied 06/27/2025 08/26/2025 1 0 [facility] Summary Purpose Family History No Family History Records Found Cancer Status:Active Comments:Materna l Grandmother. renal cell Cerebrovascular Accident Status:Active Comment s:Paternal Grandfather. Diabetes Mellitus Type II Status:Active Commen ts:Maternal Grandmother. Maternal Grandfather. Father Status:Active Comments:Michael Duffy Hypertension Status:Active Comments:Materna l Grandfather. Maternal Grandmother. Hyperthyroidism Status:Active Comments:Materna l Grandmother. Mother Status:Active Comments:Yazmin Duffy Cancer Status:Active Comments:Materna l Grandmother. renal cell Cerebrovascular Accident Status:Active Comment s:Paternal Grandfather. Diabetes Mellitus Type II Status:Active Commen ts:Maternal Grandmother. Maternal Grandfather. Father Status:Active Comments:Michael Duffy Hypertension Status:Active Comments:Materna l Grandfather. Maternal Grandmother. Hyperthyroidism Status:Active Comments:Materna l Grandmother. Mother Status:Active Comments:Yazmin Duffy Cancer Status:Active Comments:Materna l Grandmother. renal cell Cerebrovascular Accident Status:Active Comment s:Paternal Grandfather. Diabetes Mellitus Type II Status:Active Commen ts:Maternal Grandmother. Maternal Grandfather. Father Status:Active Comments:Michael Duffy Hypertension Status:Active Comments:Materna l Grandfather. Maternal Grandmother. Hyperthyroidism Status:Active Comments:Materna l Grandmother. Mother Status:Active Comments:Yazmin Duffy Cancer Status:Active Comments:Materna l Grandmother. renal cell Cerebrovascular Accident Status:Active Comment s:Paternal Grandfather. Diabetes Mellitus Type II Status:Active Commen ts:Maternal Grandmother. Maternal Grandfather. Father Status:Active Comments:Michael Duffy Hypertension Status:Active Comments:Materna l Grandfather. Maternal Grandmother. Hyperthyroidism Status:Active Comments:Materna l Grandmother. Mother Status:Active Comments:Yazmin Duffy Cancer Status:Active Comments:Materna l Grandmother. renal cell Cerebrovascular Accident Status:Active Comment s:Paternal Grandfather. Diabetes Mellitus Type II Status:Active Commen ts:Maternal Grandmother. Maternal Grandfather. Father Status:Active Comments:Michael Duffy Hypertension Status:Active Comments:Materna l Grandfather. Maternal Grandmother. Hyperthyroidism Status:Active Comments:Materna l Grandmother. Mother Status:Active Comments:Yazmin Duffy Cancer Status:Active Comments:Materna l Grandmother. renal cell Cerebrovascular Accident Status:Active Comment s:Paternal Grandfather. Diabetes Mellitus Type II Status:Active Commen ts:Maternal Grandmother. Maternal Grandfather. Father Status:Active Comments:Michael Duffy Hypertension Status:Active Comments:Materna l Grandfather. Maternal Grandmother. Hyperthyroidism Status:Active Comments:Materna l Grandmother. Mother Status:Active Comments:Yazmin Duffy Cancer Status:Active Comments:Materna l Grandmother. renal cell Cerebrovascular Accident Status:Active Comment s:Paternal Grandfather. Diabetes Mellitus Type II Status:Active Commen ts:Maternal Grandmother. Maternal Grandfather. Father Status:Active Comments:Michael Duffy Hypertension Status:Active Comments:Materna l Grandfather. Maternal Grandmother. Hyperthyroidism Status:Active Comments:Materna l Grandmother. Mother Status:Active Comments:Yazmin Duffy Cancer Status:Active Comments:Materna l Grandmother. renal cell Cerebrovascular Accident Status:Active Comment s:Paternal Grandfather. Diabetes Mellitus Type II Status:Active Commen ts:Maternal Grandmother. Maternal Grandfather. Father Status:Active Comments:Michael Duffy Hypertension Status:Active Comments:Materna l Grandfather. Maternal Grandmother. Hyperthyroidism Status:Active Comments:Materna l Grandmother. Mother Status:Active Comments:Yazmin Duffy Cancer Status:Active Comments:Materna l Grandmother. renal cell Cerebrovascular Accident Status:Active Comment s:Paternal Grandfather. Diabetes Mellitus Type II Status:Active Commen ts:Maternal Grandmother. Maternal Grandfather. Father Status:Active Comments:Michael Duffy Hypertension Status:Active Comments:Materna l Grandfather. Maternal Grandmother. Hyperthyroidism Status:Active Comments:Materna l Grandmother. Mother Status:Active Comments:Yazmin Duffy Cancer Status:Active Comments:Materna l Grandmother. renal cell Cerebrovascular Accident Status:Active Comment s:Paternal Grandfather. Diabetes Mellitus Type II Status:Active Commen ts:Maternal Grandmother. Maternal Grandfather. Father Status:Active Comments:Michael Duffy Hypertension Status:Active Comments:Materna l Grandfather. Maternal Grandmother. Hyperthyroidism Status:Active Comments:Materna l Grandmother. Mother Status:Active Comments:Yazmin Duffy Cancer Status:Active Comments:Materna l Grandmother. renal cell Cerebrovascular Accident Status:Active Comment s:Paternal Grandfather. Diabetes Mellitus Type II Status:Active Commen ts:Maternal Grandmother. Maternal Grandfather. Father Status:Active Comments:Michael Duffy Hypertension Status:Active Comments:Materna l Grandfather. Maternal Grandmother. Hyperthyroidism Status:Active Comments:Materna l Grandmother. Mother Status:Active Comments:Yazmin Duffy Cancer Status:Active Comments:Materna l Grandmother. renal cell Cerebrovascular Accident Status:Active Comment s:Paternal Grandfather. Diabetes Mellitus Type II Status:Active Commen ts:Maternal Grandmother. Maternal Grandfather. Father Status:Active Comments:Michael Duffy Hypertension Status:Active Comments:Materna l Grandfather. Maternal Grandmother. Hyperthyroidism Status:Active Comments:Materna l Grandmother. Mother Status:Active Comments:Yazmin Duffy Cancer Status:Active Comments:Materna l Grandmother. renal cell Cerebrovascular Accident Status:Active Comment s:Paternal Grandfather. Diabetes Mellitus Type II Status:Active Commen ts:Maternal Grandmother. Maternal Grandfather. Father Status:Active Comments:Michael Duffy Hypertension Status:Active Comments:Materna l Grandfather. Maternal Grandmother. Hyperthyroidism Status:Active Comments:Materna l Grandmother. Mother Status:Active Comments:Yazmin Duffy Cancer Status:Active Comments:Materna l Grandmother. renal cell Cerebrovascular Accident Status:Active Comment s:Paternal Grandfather. Diabetes Mellitus Type II Status:Active Commen ts:Maternal Grandmother. Maternal Grandfather. Father Status:Active Comments:Michael Duffy Hypertension Status:Active Comments:Materna l Grandfather. Maternal Grandmother. Hyperthyroidism Status:Active Comments:Materna l Grandmother. Mother Status:Active Comments:Yazmin Duffy Cancer Status:Active Comments:Materna l Grandmother. renal cell Cerebrovascular Accident Status:Active Comment s:Paternal Grandfather. Diabetes Mellitus Type II Status:Active Commen ts:Maternal Grandmother. Maternal Grandfather. Father Status:Active Comments:Michael Duffy Hypertension Status:Active Comments:Materna l Grandfather. Maternal Grandmother. Hyperthyroidism Status:Active Comments:Materna l Grandmother. Mother Status:Active Comments:Yazmin Duffy Cancer Status:Active Comments:Materna l Grandmother. renal cell Cerebrovascular Accident Status:Active Comment s:Paternal Grandfather. Diabetes Mellitus Type II Status:Active Commen ts:Maternal Grandmother. Maternal Grandfather. Father Status:Active Comments:Michael Duffy Hypertension Status:Active Comments:Materna l Grandfather. Maternal Grandmother. Hyperthyroidism Status:Active Comments:Materna l Grandmother. Mother Status:Active Comments:Yazmin Duffy Cancer Status:Active Comments:Materna l Grandmother. renal cell Cerebrovascular Accident Status:Active Comment s:Paternal Grandfather. Diabetes Mellitus Type II Status:Active Commen ts:Maternal Grandmother. Maternal Grandfather. Father Status:Active Comments:Michael Duffy Hypertension Status:Active Comments:Materna l Grandfather. Maternal Grandmother. Hyperthyroidism Status:Active Comments:Materna l Grandmother. Mother Status:Active Comments:Yazmin Duffy Cancer Status:Active Comments:Materna l Grandmother. renal cell Cerebrovascular Accident Status:Active Comment s:Paternal Grandfather. Diabetes Mellitus Type II Status:Active Commen ts:Maternal Grandmother. Maternal Grandfather. Father Status:Active Comments:Michael Duffy Hypertension Status:Active Comments:Materna l Grandfather. Maternal Grandmother. Hyperthyroidism Status:Active Comments:Materna l Grandmother. Mother Status:Active Comments:Yazmin Duffy Cancer Status:Active Comments:Materna l Grandmother. renal cell Cerebrovascular Accident Status:Active Comment s:Paternal Grandfather. Diabetes Mellitus Type II Status:Active Commen ts:Maternal Grandmother. Maternal Grandfather. Father Status:Active Comments:Michael Duffy Hypertension Status:Active Comments:Materna l Grandfather. Maternal Grandmother. Hyperthyroidism Status:Active Comments:Materna l Grandmother. Mother Status:Active Comments:Yazmin Duffy Relationship Condition Age at Onset Recorded Date/T dwight sister Tachycardia Unknown Cancer Status:Active Comments:Materna l Grandmother. renal cell Cerebrovascular Accident Status:Active Comment s:Paternal Grandfather. Diabetes Mellitus Type II Status:Active Commen ts:Maternal Grandmother. Maternal Grandfather. Father Status:Active Comments:Michael Duffy Hypertension Status:Active Comments:Materna l Grandfather. Maternal Grandmother. Hyperthyroidism Status:Active Comments:Materna l Grandmother. Mother Status:Active Comments:Yazmin Duffy Cancer Status:Active Comments:Materna l Grandmother. renal cell Cerebrovascular Accident Status:Active Comment s:Paternal Grandfather. Diabetes Mellitus Type II Status:Active Commen ts:Maternal Grandmother. Maternal Grandfather. Father Status:Active Comments:Michael Dfufy Hypertension Status:Active Comments:Materna l Grandfather. Maternal Grandmother. Hyperthyroidism Status:Active Comments:Materna l Grandmother. Mother Status:Active Comments:Yazmin Duffy Cancer Status:Active Comments:Materna l Grandmother. renal cell Cerebrovascular Accident Status:Active Comment s:Paternal Grandfather. Diabetes Mellitus Type II Status:Active Commen ts:Maternal Grandmother. Maternal Grandfather. Father Status:Active Comments:Michael Duffy Hypertension Status:Active Comments:Materna l Grandfather. Maternal Grandmother. Hyperthyroidism Status:Active Comments:Materna l Grandmother. Mother Status:Active Comments:Yazmin Duffy Advance Directives No Advanced Directives Records Found Advance Directive Response Recorded Date/ Time Living Will No July 21 023 2:49pm Power of Health Care Coach No July 21, 2023 2:49pm Chief Complaint and Reason for Visit Chief Complaint CP Chief Complaint WITNESS EPISODE OF A PNEA Chief Complaint Admit Date PVCs (Armando) January 30, 2025 9:1 9am INT ORDER January 30, 2025 10: 35am FREQUENT PVCS February 07, 2025 8:3 5am Reason for Visit Admit Date PVCs (premature ventricular contractions ) January 30, 2025 9:19am Intermittent palpitations January 30 9:19am Chief Complaint Admit Date RESPIRATOR ISSUANCE & TRAINING/ JYOTHI Yadav paddy 2024 10:06am Chief Complaint Admit Date RESPIRATOR ISSUANCE & TRAINING/ ROE J paddy 2024 10:06am Establish Care for brainstem malformatio n August 13, 2025 10:38am Reason for Visit Admit Date Normal respiratory questionnaire on revi ew June 12, 2025 10:06am Demyelinating changes in brain August 13, 2025 10:38am Frequent headaches August 13, 2025 10:38am Additional Source Comments (unrecognized sect ion and content) No Status Records FoundNo Status Records FoundNo Status Records FoundNo Status Records FoundNo Status Records FoundNo Status Records Found INFORMATION SOURCE (unrecogn ized section and content) DATE CREATED AUTHOR 04/17/2019 [facility] DATE CREATED AUTHOR AUTHOR'S ORGANIZ ATION 2024 [facility] DATE CREATED AUTHOR AUTHOR'S ORGANIZ ATION 12/19/2024 [facility] DATE CREATED AUTHOR AUTHOR'S ORGANIZ ATION 12/24/2024 [facility] DATE CREATED AUTHOR AUTHOR'S ORGANIZ ATION 06/28/2025 [facility] DATE CREATED AUTHOR AUTHOR'S ORGANIZ ATION 09/10/2025 [facility] Care Teams (unrecognized sec tion and content) Team Status: Active Member Role Status Dates Dr. Javier Gu MD Family Provider Active Dr. Javier Gu MD Primary Care Provider Active Team Status: Inactive Member Role Status Dates Dr. Javier Gu MD Primary Care Provider Active Dr. Jacob James MD Emergency Provider Active Team Status: Inactive Member Role Status Dates Dr. Javier Gu MD Primary Care Provider, Attending Provider Active Team Status: Inactive Member Role Status Dates Dr. Javier Gu MD Primary Care Provider Active Start: January 30, 2025 End: January 30, 2025 Dr. Javier Gu MD Referring Provider Active S tart: January 30, 2025 End: January 30, 2025 Dr. Leila Coon MD Attending Provider Active Start: January 30, 2025 End: January 30, 2025 Team Status: Inactive Member Role Status Dates Dr. Javier Gu MD Primary Care Provider Active Start: January 30, 2025 End: January 30, 2025 Dr. Leila Coon MD Attending Provider Active Start: January 30, 2025 End: January 30, 2025 Dr. Leila Coon MD Referring Provider Active Start: January 30, 2025 End: January 30, 2025 Team Status: Active Member Role Status Dates Dr. Javier Gu MD Primary Care Provider Active Start: February 07, 2025 Dr. Leila Coon MD Attending Provider Active Start: February 07, 2025 Dr. Leila Coon MD Referring Provider Active Start: February 07, 2025 [employer] Relationship Specialty Start Date End Date Javier Gu MD [address] [address] PCP - General Family Medicine 03/23/19 Team Status: Active Member Role/Relationship Status Dates Dr. Javier Gu MD Family Provider Active Dr. Javier Gu MD Primary Care Provider Active Team Status: Inactive Member Role/Relationship Status Dates Dr. Javier Gu MD Primary Care Provider Active Start: June 12, 2025 End: June 12, 2025 Dr. Javier Gu MD Referring Provider Active S tart: June 12, 2025 End: June 12, 2025 GRECIA Auguste Attending Provider Active Sta rt: June 12, 2025 End: June 12, 2025 [employer] Relationship Specialty Start Date End Date Javier Gu MD [address] [place] [address] PCP - General Family Medicine 03/23/19 Team Status: Active Member Role/Relationship Status Dates Dr. Javier Gu MD Primary care physician Active Team Status: Inactive Member Role/Relationship Status Dates Dr. Javier Gu MD Primary care physician Active Start: June 12, 2025 End: June 12, 2025 Dr. Javier Gu MD Referring Provider Active S tart: June 12, 2025 End: June 12, 2025 GRECIA Auguste Attending physician Active St art: June 12, 2025 End: June 12, 2025 Team Status: Inactive Member Role/Relationship Status Dates Dr. Javier Gu MD Primary care physician Active Start: August 13, 2025 End: August 13, 2025 Dr. Javier Gu MD Referring Provider Active S tart: August 13, 2025 End: August 13, 2025 Dr. Pierre Ponce MD Attending physician Active Start: August 13, 2025 End: August 13, 2025 Goals (unrecognized section and content) Goals may be documented in a n alternate sectionGoals may be documented in an alternate sectionGoals may be documented in an alternate sectionGoals may be documented in an alternate sectionGoals may be documented in an alternate section Source Comments (unrecognize d section and content) In the event this informatio n is protected by the [facility] [place] [facility] [place] Confidentiality of Alcohol and Drug Abuse Patient Records regulations: The Federal rules restrict any use of the information to criminally investigate or prosecute any alcohol or drug abuse patient.[facility] the event this information is protected by the Federal Confidentiality of Alcohol and Drug Abuse Patient Records regulations: The Federal rules restrict any use of the information to criminally investigate or prosecute any alcohol or drug abuse patient.[facility] FOR RECORDS PERTAINING TO PATIENTS WHO ARE OR HAVE BEEN ENROLLED IN A CHEMICAL DEPENDENCY/SUBSTANCEABUSE PROGRAM, SOME INFORMATION MAY BE OMITTED. This clinical summary was aggregated from multiple sources. Caution should be exercised in using it in the provision of clinical care. This summary normalizes information from multiple sources, and as a consequence, information in this document may materially change the coding, format and clinical context of patient data. In addition, data may be omitted in some cases. CLINICAL DECISIONS SHOULD BE BASED ON THE PRIMARY CLINICAL RECORDS. [employer] [facility]. provides no warranty or guarantee of the accuracy or completeness of information in this document.
--- NOTE | 2025-10-11 13:58 | MRI_ITS ---
PROCEDURE: SPINE THORACIC W/WO CONTRAST 10/11/2025 REASON FOR EXAM: DEMYELINATING DISEASE TECHNIQUE: Thoracic spine MRI without and with intravenous gadolinium-based contrast. Multiplanar and multisequence images were obtained. CONTRAST: Clariscan VOLUME: 16mL COMPARISON: None. FINDINGS: Vertebrae: Preserved in height and signal. Alignment: Normal alignment. Spinal Cord: Unremarkable. Disc spaces: Unremarkable. Paraspinal Tissues: Unremarkable. Postcontrast images: No abnormal enhancement. MRI/Spine Thoracic W/WO Contrast IMPRESSION: Unremarkable MRI of the thoracic spine without evidence of demyelinating lesion or abnormal enhancement. Reading Location: [id number]
--- NOTE | 2025-10-11 13:58 | MRI_ITS ---
PROCEDURE: SPINE CERVICAL W/WO CONTRAST 10/11/2025 REASON FOR EXAM: DEMYELINATING DISEASE TECHNIQUE: Procedure Code: [id number] Modality: MR Procedure: SPINE CERVICAL W/WO CONTRAST Multiplanar and multisequence images were obtained with intravenous gadolinium- based contrast administration. CONTRAST: Clariscan VOLUME: 16 mL COMPARISON: None. FINDINGS: Vertebrae: Unremarkable in height and signal. Alignment: Normal alignment Spinal Cord: Normal. C2-3: Unremarkable. C3-4: Unremarkable C4-5: Unremarkable. C5-6: Unremarkable. C6-7: Unremarkable C7-T1: Unremarkable. Postcontrast images: Unremarkable. MRI/Spine Cervical W/WO Contrast IMPRESSION: No evidence of demyelinating lesion or abnormal enhancement. Reading Location: [facility]
== END | disposition home or self-care (01) ==
LOC: MRI 13:55
PROVIDERS: PCP Family Medicine
DX: G37.9 Demyelinating disease of central nervous system, unspecified (principal); R51.9 Headache, unspecified
CPT/HCPCS: 72156; 72157; A9575; A4216